=== PATIENT | male | born 1985 | race Caucasian/White ===

== ENCOUNTER 2016-07-08 23:05 | Inpatient (IN) | payer OTHER ==
[2016-07-09] MEDS ORDERED: ONDANSETRON 4 MG/2 ML VIAL IVP STA (00:09)
[2016-07-09] MEDS ORDERED: DICYCLOMINE 10 MG/ML 2 ML AMP IM STA (00:09)
[2016-07-09] MEDS ORDERED: SODIUM CHLORIDE 0.9% 1,000 ML IV STA ×2 (00:09→01:09)
--- NOTE | 2016-07-09 00:15 | ED ---
Abdominal Pain HPI - General Chief Complaint: Abdominal Pain Stated Complaint: abdominal pain/vomiting Time Seen by Provider: 07/08/16 23:53 Source: patient, RN notes reviewed Mode of arrival: wheelchair Limitations: no limitations - History of Present Illness Initial Comments: 30-year-old male presents to the emergency Department chief complaint of lower abdominal pain. Patient states this started yesterday with nausea vomiting. Patient states crampy pain all the way around the abdomen. Patient does admit to a history of cholecystectomy. Patient denies any fever chills. Patient seen changes in urination. Patient states he's never had anything like this before. Patient states he was concerned due to his continued pain so he thought that he should be seen.Patient denies any recent fever, chills, shortness of breath, chest pain, back pain, numbness or tingling, dysuria or hematuria, constipation or diarrhea, headaches or visual changes, or any other current symptoms. - Related Data Home Medications Medication Instructions Recorded Confirmed Citalopram Hydrobromide [CeleXA] 20 mg PO HS 02/05/16 07/08/16 traZODone HCL 50 mg PO HS PRN 05/08/16 07/08/16 Baclofen [Lioresal] 5 mg PO TID 07/08/16 07/08/16 traMADol HCL [Ultram] 50 mg PO Q6HR PRN 07/08/16 07/08/16 Previous Rx's Medication Instructions Recorded Famotidine [Pepcid] 20 mg PO BID #30 tablet 02/05/16 Carvedilol [Coreg] 6.25 mg PO BID #60 tab 03/14/16 Fenofibrate Nanocrystallized 145 mg PO HS #30 tablet 03/14/16 [Tricor] LORazepam [Ativan] 1 mg PO Q8H PRN #20 tab 05/10/16 Allergies Allergy/AdvReac Type Severity Reaction Status Date / Time Penicillins Allergy Rash/Hives Verified 05/18/16 20:45 Review of Systems ROS Statement: Those systems with pertinent positive or pertinent negative responses have been documented in the HPI. ROS Other: All systems not noted in ROS Statement are negative. Past Medical History Past Medical History: GERD/Reflux, Hypertension Additional Past Medical History / Comment(s): Possible previous pancreatitis. History of Any Multi-Drug Resistant Organisms: None Reported Past Surgical History: Cholecystectomy Additional Past Surgical History / Comment(s): Jaw surgery as child, wisdom teeth extraction. Past Anesthesia/Blood Transfusion Reactions: No Reported Reaction Past Psychological History: Anxiety, Depression Additional Psychological History / Comment(s): Pt lives alone. He is in the [employer]. He states he is on Celexa for his general anxiety disorder and that it is working well. He is independent. Smoking Status: Never smoker Past Alcohol Use History: Daily, Heavy Additional Past Alcohol Use History / Comment(s): Pt states he drinks 3 ounces of whiskey a day. Past Drug Use History: None Reported - Past Family History Father Family Medical History: No Reported History, Diabetes Mellitus Mother Family Medical History: No Reported History Additional Family Medical History / Comment(s): Mother is healthy General Exam - General Exam Comments Initial Comments: General: The patient is awake and alert, in no distress, and does not appear acutely ill. Eye: Pupils are equal, round and reactive to light, extra-ocular movements are intact; there is normal conjunctiva bilaterally. No signs of icterus. Ears, nose, mouth and throat: There are moist mucous membranes and no oral lesions. Neck: The neck is supple, there is no tenderness. Cardiovascular: There is a regular rate and rhythm. No murmur, rub or gallop is appreciated. Respiratory: Lungs are clear to auscultation, respirations are non-labored, breath sounds are equal. No wheezes, stridor, rales, or rhonchi. Gastrointestinal: Soft, non-distended, non-tender abdomen without masses or organomegaly noted. There is no rebound or guarding present. No CVA tenderness. Bowel sounds are unremarkable. Back: There is no tenderness to palpation in the midline. There is no obvious deformity. No rashes noted. Musculoskeletal: Normal ROM, no tenderness, There is no pedal edema. There is no calf tenderness or swelling. Sensation intact. Pulses equal bilaterally 2+. Neurological: CN II-XII intact, There are no obvious motor or sensory deficits. Coordination appears grossly intact. Speech is normal. Skin: Skin is warm and dry and no rashes or lesions are noted. Psychiatric: Cooperative, appropriate mood & affect, normal judgment. Limitations: no limitations Course Vital Signs 07/08/16 23:22 Temperature 98.5 F Pulse Rate 106 H Respiratory 20 Rate Blood Pressure 119/87 O2 Sat by Pulse 96 Oximetry Medical Decision Making - Medical Decision Making 30-year-old male presents for nausea vomiting and lower abdominal pain. At this time the patient's laboratory is reviewed that does show acute pancreatitis. Patient does have an elevated white blood cell count which is suspicious for his reactive due to his active vomiting. Patient at this time is feeling better with the medication. At this time we will admit the patient lab work otherwise does show consistency when compared to previous pancreatitis flareups. At this time we will that the patient continue fluids nothing by mouth we will also start Ativan protocol due to his history of alcohol abuse. Patient is in agreement with the plan. - Lab Data Result diagrams: 07/09/16 00:30 07/09/16 00:30 Lab Results 07/09/16 07/09/16 Range/Units 00:30 00:30 WBC 24.7 H (3.8-10.6) k/uL RBC 6.32 H (4.30-5.90) m/uL Hgb 19.5 H D (13.0-17.5) gm/dL Hct 55.7 H (39.0-53.0) % MCV 88.0 (80.0-100.0) fL MCH 30.8 (25.0-35.0) pg MCHC 35.0 (31.0-37.0) g/dL RDW 13.1 (11.5-15.5) % Plt Count 269 (150-450) k/uL Neutrophils % 92 % Lymphocytes % 3 % Monocytes % 5 % Eosinophils % 0 % Basophils % 0 % Neutrophils # 22.7 H (1.3-7.7) k/uL Lymphocytes # 0.7 L (1.0-4.8) k/uL Monocytes # 1.2 H (0-1.0) k/uL Eosinophils # 0.0 (0-0.7) k/uL Basophils # 0.1 (0-0.2) k/uL Sodium 138 (137-145) mmol/L Potassium 3.9 (3.5-5.1) mmol/L Chloride 97 L (98-107) mmol/L Carbon Dioxide 17 L (22-30) mmol/L Anion Gap 24 mmol/L BUN 17 (9-20) mg/dL Creatinine 1.00 (0.66-1.25) mg/dL Est GFR (MDRD) Af Amer >60 (>60 ml/min/1.73 sqM) Est GFR (MDRD) Non-Af >60 (>60 ml/min/1.73 sqM) Glucose 127 H (74-99) mg/dL Calcium 10.0 (8.4-10.2) mg/dL Total Bilirubin 1.5 H (0.2-1.3) mg/dL AST 109 H (17-59) U/L ALT 76 H (21-72) U/L Alkaline Phosphatase 93 (38-126) U/L Total Protein 8.6 H (6.3-8.2) g/dL Albumin 5.1 H (3.5-5.0) g/dL Amylase 662 H* (30-110) U/L - Radiology Data Radiology results: report reviewed, image reviewed Disposition Clinical Impression: Alcoholic hepatitis, Pancreatitis Disposition: ADMITTED IP TO THIS [facility] Condition: Stable Time of Disposition: 01:16 Decision Date: 07/09/16 Decision Time: 01:16
[2016-07-09 00:58] LABS: ALT 76 U/L (21-72); AST 109 U/L (17-59); Alkaline Phosphatase 93 U/L (38-126); Anion Gap 24 mmol/L; Blood Urea Nitrogen 17 mg/dL (9-20); Carbon Dioxide 17 mmol/L (22-30); Chloride 97 mmol/L (98-107); Glucose 127 mg/dL (74-99); Non-African American GFR(MDRD) >60 (>60 ml/min/1.73 sqM); Potassium 3.9 mmol/L (3.5-5.1); Sodium 138 mmol/L (137-145); Total Bilirubin 1.5 mg/dL (0.2-1.3); Total Protein 8.6 g/dL (6.3-8.2)
[2016-07-09 01:01] LABS: Basophils # (A) 0.1 k/uL (0-0.2); Basophils % (A) 0 %; CH 31.8; CHCM 36.2; Eosinophils % (A) 0 %; HCT 55.7 % (39.0-53.0); Luc # (Auto) 0.07; Luc % (Auto) 0; Lymphocytes # (A) 0.7 k/uL (1.0-4.8); Lymphocytes % (A) 3 %; MCH 30.8 pg (25.0-35.0); Mean Platelet Volume 7.5; Monocytes # (A) 1.2 k/uL (0-1.0); Monocytes % (A) 5 %; Neutrophils # (A) 22.7 k/uL (1.3-7.7); Neutrophils % (A) 92 %; RBC 6.32 m/uL (4.30-5.90); RDW 13.1 % (11.5-15.5); WBC 24.7 k/uL (3.8-10.6); WBC (Perox) 27.13
[2016-07-09 01:07] LABS: Amylase 662 U/L (30-110); HGB 19.5 gm/dL (13.0-17.5)
[2016-07-09] MEDS ORDERED: HYDROmorphone 1 MG/ML 1 ML SYRINGE IVP STA (01:09)
--- NOTE | 2016-07-09 01:15 | XR ---
EXAMINATION TYPE: XR abdomen 2V DATE OF EXAM: 07/09/2016 12:50 AM COMPARISON: NONE HISTORY: Abdominal pain TECHNIQUE: 2 views FINDINGS: There is no sign of intestinal obstruction or pneumoperitoneum. Fecal pattern is normal. Th ere is no evidence of a mass. There are no pathologic calcifications over the kidneys. There are clip s from cholecystectomy. Bony structures are intact. IMPRESSION: Nonacute abdomen.
[2016-07-09] MEDS ORDERED: NALOXONE 0.4 MG/ML 1 ML VIAL IV PRN (01:16)
[2016-07-09] MEDS ORDERED: THIAMINE 100 MG/ML 2 ML VIAL IM STA (01:16)
[2016-07-09] MEDS ORDERED: LORazepam 2 MG/ML SYRINGE IV PRN ×2 (01:16)
[2016-07-09] MEDS ORDERED: LORazepam 1 MG TAB PO PRN (01:18)
[2016-07-09] MEDS ORDERED: traZODone HCL 50 MG TAB PO PRN (01:18)
[2016-07-09] MEDS: traMADol 50 MG TAB PO PRN ×4 (02:47→19:59)
[2016-07-09] MEDS: SODIUM CHLORIDE 0.9% 1,000 ML IV SCH ×4 (02:47→20:01)
[2016-07-09] MEDS: HYDROmorphone 1 MG/ML 1 ML SYRINGE IV PRN ×7 (03:54→22:06)
[2016-07-09 04:06] VITALS: BMI 28.6
[2016-07-09] MEDS: CARVEDILOL 6.25 MG TAB PO SCH ×2 (05:11→16:18)
[2016-07-09] MEDS: BACLOFEN 10 MG TAB PO SCH ×3 (08:05→22:05)
[2016-07-09] MEDS: ONDANSETRON 4 MG/2 ML VIAL IVP PRN ×3 (08:06→23:37)
[2016-07-09] MEDS: FAMOTIDINE 20 MG TAB PO SCH ×2 (08:06→20:01)
[2016-07-09 11:54] LABS: ALT 452 U/L (21-72); Alkaline Phosphatase 174 U/L (38-126); Anion Gap 16 mmol/L; Blood Urea Nitrogen 12 mg/dL (9-20); Calcium 8.4 mg/dL (8.4-10.2); Carbon Dioxide 20 mmol/L (22-30); Chloride 102 mmol/L (98-107); Glucose 151 mg/dL (74-99); Non-African American GFR(MDRD) >60 (>60 ml/min/1.73 sqM); Potassium 4.3 mmol/L (3.5-5.1); Sodium 138 mmol/L (137-145); Total Bilirubin 8.2 mg/dL (0.2-1.3); Total Protein 6.9 g/dL (6.3-8.2)
[2016-07-09 12:05] LABS: AST 1355 U/L (17-59)
[2016-07-09] MEDS: THIAMINE 100 MG TAB PO SCH (16:18)
[2016-07-09] MEDS: FENOFIBRATE 160 MG TAB PO SCH (20:00)
[2016-07-09] MEDS: CITALOPRAM HYDROBROMIDE 20 MG TAB PO SCH (20:01)
[2016-07-09] MEDS: LORazepam 2 MG/ML SYRINGE IV PRN (23:45)
--- NOTE | 2016-07-09 23:51 | HP ---
DATE OF ADMISSION: CHIEF COMPLAINT: Abdominal pain. Mr. Moscoso is a 30-year-old male with a past medical history of GERD, hypertension, alcohol abuse, coming in with the chief complaint of abdominal pain. Patient states that he has had epigastric abdominal pain radiating to the back associated with nausea and vomiting. Patient admits to a history of alcohol abuse. He drinks 1 pint a day. He says that he works in the [employer] and he had this habit since working there. Patient denies having any fevers, chills or rigors. No difficulty in breathing. Patient denies having any constipation or blood in his stool. He denies having any loss of consciousness, syncopal episodes. REVIEW OF SYSTEMS: All 13 review of systems are done and negative except for the ones mentioned in the HPI. Past medical history is significant for: 1. GERD. 2. Alcohol abuse. 3. Hypertension. ALLERGIES: PENICILLIN. PATIENT'S HOME MEDICATIONS: 1. Citalopram 20 mg p.o. at bedtime. 2. Famotidine 20 mg p.o. b.i.d. 3. Coreg 6.25 mg p.o. b.i.d. 4. TriCor 145 mg p.o. at bedtime. 5. Trazodone 50 mg p.o. at bedtime. 6. Tramadol 50 mg p.o. b.i.d. 7. Baclofen 5 mg p.o. 3 times a day. 8. Thiamine 100 mg p.o. daily. 9. Folic acid 1 mg p.o. daily. 10. Ativan 1 mg p.o. b.i.d. p.r.n. for anxiety. SOCIAL HISTORY: Patient drinks 1 pint a day. Never a smoker. No intravenous drug abuse. SURGICAL HISTORY: Positive for cholecystectomy. FAMILY HISTORY: Positive for diabetes mellitus and hypertension in his father. PATIENT'S VITAL SIGNS: Temperature 96.9, heart rate between 90 and 120. Respiratory rate 18. Blood pressure 159/120. Saturating at 95% on room air. GENERAL EXAMINATION: Patient appears to be in no acute distress. HEAD: Atraumatic, normocephalic. EYES: Pupils round and reactive to light. No pallor. No icterus. NECK: No JVD. No thyromegaly. CARDIOVASCULAR SYSTEM: S1, S2 heard. RESPIRATORY: Bilateral breath sounds. No wheeze or crackles. ABDOMEN: Soft, non-tender. No organomegaly. Bowel sounds are positive. EXTREMITIES: No edema. No cyanosis. No clubbing. WOOD BUFFER: Alert, awake, oriented x3. No focal neurological deficit. MUSCULOSKELETAL: No joint swelling or deformity. SKIN: No rash. PATIENT'S LABS: White count of 24.7. Hemoglobin is 19.5. Platelets 269. Sodium 138, potassium 3.9, chloride 97, bicarb 17. BUN 17, creatinine 1. Amylase 662. Lipase 6090. Albumin 5.1. AST 109, ALT 76. Patient had an abdominal x-ray. No acute abdomen. ASSESSMENT AND PLAN: 1. Acute pancreatitis. 2. Acute alcoholic hepatitis. 3. Hypertension. 4. Gastroesophageal reflux disease. 5. Monitor for alcohol withdrawal symptoms. 6. Depression. PLAN: Continue to monitor the patient for DTs. Patient is being monitored on a CIWA scale. Resume his home medications. Supplement thiamine and folic acid. The leukocytosis can be secondary to alcoholic pancreatitis. Will repeat a.m. labs. Further recommendations depending on the progress of the patient. MTDD
[2016-07-10] MEDS: HYDROmorphone 1 MG/ML 1 ML SYRINGE IV PRN ×4 (02:04→20:47)
[2016-07-10] MEDS: LORazepam 2 MG/ML SYRINGE IV PRN (03:27)
[2016-07-10] MEDS: SODIUM CHLORIDE 0.9% 1,000 ML IV SCH ×3 (03:36→17:45)
[2016-07-10] MEDS ORDERED: METOPROLOL TARTRATE 50 MG TAB PO STA (04:34)
[2016-07-10] MEDS ORDERED: SODIUM CHLORIDE 0.9% 1,000 ML IV ONE (04:39)
[2016-07-10] MEDS: FAMOTIDINE 20 MG TAB PO SCH (08:13)
[2016-07-10] MEDS: CARVEDILOL 6.25 MG TAB PO SCH ×2 (08:13→17:44)
[2016-07-10] MEDS: BACLOFEN 10 MG TAB PO SCH ×3 (08:13→21:07)
[2016-07-10] MEDS: ONDANSETRON 4 MG/2 ML VIAL IVP PRN ×2 (08:16→16:21)
[2016-07-10 10:09] LABS: CH 31.1; CHCM 33.5; HCT 49.5 % (39.0-53.0); HDW 2.91; Immature Gran Flag Marked; MCH 30.5 pg (25.0-35.0); MCHC 32.7 g/dL (31.0-37.0); Mean Platelet Volume 9.1; RBC 5.31 m/uL (4.30-5.90); RDW 13.8 % (11.5-15.5); WBC 21.3 k/uL (3.8-10.6); WBC (Perox) 22.15
[2016-07-10 10:11] LABS: Calcium 7.7 mg/dL (8.4-10.2); Magnesium 1.8 mg/dL (1.6-2.3); Phosphorous 3.7 mg/dL (2.5-4.5); Potassium 4.8 mmol/L (3.5-5.1); Total Bilirubin 13.1 mg/dL (0.2-1.3); Total Protein 6.1 g/dL (6.3-8.2)
[2016-07-10 10:16] LABS: HGB 16.2 gm/dL (13.0-17.5)
[2016-07-10 10:17] LABS: MCV 93.4 fL (80.0-100.0)
[2016-07-10 11:12] LABS: Add Differential Manual Differential
[2016-07-10 11:15] LABS: Band Neutrophils % 15.5 %; Manual Review Performed; Metamyelocytes % 3.5 %; Myelocytes % 0.5 %; Nucleated Red Blood Cells 0 /100 WBC (0-0); Total Cells Counted 200; Toxic Granulation Present
[2016-07-10] MEDS: THIAMINE 100 MG TAB PO SCH ×2 (11:51→16:21)
[2016-07-10] MEDS: traMADol 50 MG TAB PO PRN (12:49)
[2016-07-10] MEDS: PANTOPRAZOLE 40 MG/10 ML VIAL IVP SCH (15:08)
--- NOTE | 2016-07-10 15:48 | P.PN ---
Subjective Date of service 07/10/2016 Progress note being dictated for Dr. Rao. Interval history: Is a 30-year-old gentleman admitted with acute pancreatitis, acute alcoholic hepatitis, acute renal failure and multiple other medical issues. Maintained on IV fluid hydration, renal function worsening. Patient states he drinks 1 pint/ day. Continues on CIWA protocol, no DTs. LFTs elevated , and T bili continues to worsen, up to 13.1. Amylase and lipase improving. Complains of bilateral upper quadrant abdominal pain that extends to bilateral flanks. Denies chest pain, palpitations or increasing shortness of breath. Nothing by mouth, denies nausea vomiting or diarrhea. Tachycardic evaluated by cardiology with recommendations noted. Afebrile, leukocytosis improving. Objective - Vital Signs Vital signs: Vital Signs Temp 96.5 F L 07/10/16 15:00 Pulse 103 H 07/10/16 15:00 Resp 20 07/10/16 15:00 BP 130/77 07/10/16 15:00 Pulse Ox 92 L 07/10/16 15:00 Intake & Output 07/09/16 07/10/16 07/10/16 18:59 06:59 18:59 Other: Voiding Method Toilet Toilet Urinal # Voids 2 - Exam PHYSICAL EXAM: VITAL SIGNS: As above GENERAL: [Sitting up in bed, no acute distress, jaundiced, well-nourished] HEENT: [Pupils equal , scleral icterus. Pupils round and equally reactive to light] NECK: [Supple, no JVD] RESPIRATORY EFFORT:[Normal] LUNGS: [Clear to auscultation, no wheezing, no crackles] CARDIOVASCULAR[regular S1 and S2, no murmurs rubs or gallops, tachycardic, no edema] GI: [Abdomen soft, distended, bilateral upper quadrant tenderness, positive bowel sounds.] PSYCH: [Alert and oriented -3, mood and affect normal.] NEURO: Gross neurological examination did not reveal any focal deficits SKIN: no rashes - Labs CBC & Chem 7: 07/10/16 09:13 07/10/16 09:13 Labs: Abnormal Lab Results - Last 24 Hours (Table) 07/10/16 07/10/16 07/10/16 Range/Units 00:37 09:13 09:13 WBC 21.3 H (3.8-10.6) k/uL Neutrophils # (Manual) 19.0 H (1.3-7.7) k/uL Sodium 135 L (137-145) mmol/L Carbon Dioxide 17 L (22-30) mmol/L BUN 30 H (9-20) mg/dL Creatinine 2.16 H (0.66-1.25) mg/dL Glucose 198 H (74-99) mg/dL Plasma Lactic Acid Aleksandar 2.9 H* (0.7-2.0) mmol/L Calcium 7.7 L (8.4-10.2) mg/dL Total Bilirubin 13.1 H (0.2-1.3) mg/dL AST 1059 H (17-59) U/L ALT 508 H (21-72) U/L Alkaline Phosphatase 226 H (38-126) U/L Total Protein 6.1 L (6.3-8.2) g/dL Amylase 496 H* (30-110) U/L Lipase 3619 H (23-300) U/L Assessment and Plan Plan: 1. Acute pancreatitis. 2. [Acute alcoholic hepatitis]. 3. [Acute renal failure, prerenal azotemia]. 4. [Hypertension]. 5. [Gastroesophageal reflux disease]. 6. [Alcohol abuse, reports drinking daily 1 pint. 7. [Anxiety disorder]. 8. Depression. Denies suicidal elevation. Plan: Continue on current medication regime ,monitoring and symptomatic treatment. Maintain IV fluid hydration as ordered. Continue on CIWA protocol. Alcohol cessation readdressed. Close monitoring of LFTs ,bili and renal function with CMP ordered for a.m. Daily INR ordered. Prognosis guarded given multiple complex medical issues. The impression and plan of care has been dictated as directed. : I performed a H&P examination of this patient and discussed the same with the dictator. I agree with the dictator's note. Any additional findings/opinions/ etc. will be noted.
[2016-07-10 16:37] LABS: INR 1.2 (<1.1); Prothrombin Time 12.2 sec (9.0-12.0)
[2016-07-10] MEDS: CITALOPRAM HYDROBROMIDE 20 MG TAB PO SCH (20:31)
[2016-07-10] MEDS: FENOFIBRATE 160 MG TAB PO SCH (20:32)
[2016-07-11] MEDS: HYDROmorphone 1 MG/ML 1 ML SYRINGE IV PRN ×5 (00:04→12:32)
[2016-07-11] MEDS: SODIUM CHLORIDE 0.9% 1,000 ML IV SCH ×7 (00:09→20:22)
[2016-07-11 08:50] LABS: INR 1.2 (<1.1); Prothrombin Time 12.3 sec (9.0-12.0)
[2016-07-11] MEDS: BACLOFEN 10 MG TAB PO SCH ×3 (08:52→20:57)
[2016-07-11] MEDS: PANTOPRAZOLE 40 MG/10 ML VIAL IVP SCH (08:53)
[2016-07-11] MEDS: CARVEDILOL 6.25 MG TAB PO SCH ×2 (08:53→17:12)
[2016-07-11 08:59] LABS: ALT 295 U/L (21-72); AST 255 U/L (17-59); Alkaline Phosphatase 216 U/L (38-126); Anion Gap 16 mmol/L; Blood Urea Nitrogen 30 mg/dL (9-20); Calcium 7.6 mg/dL (8.4-10.2); Carbon Dioxide 16 mmol/L (22-30); Chloride 101 mmol/L (98-107); Glucose 203 mg/dL (74-99); Non-African American GFR(MDRD) 55 (>60 ml/min/1.73 sqM); Potassium 4.5 mmol/L (3.5-5.1); Sodium 133 mmol/L (137-145); Total Protein 5.8 g/dL (6.3-8.2)
[2016-07-11 09:01] LABS: CH 30.8; CHCM 32.5; HCT 40.1 % (39.0-53.0); HDW 2.86; HGB 13.4 gm/dL (13.0-17.5); MCH 31.9 pg (25.0-35.0); MCHC 33.4 g/dL (31.0-37.0); MCV 95.4 fL (80.0-100.0); RDW 13.9 % (11.5-15.5); WBC 13.1 k/uL (3.8-10.6)
[2016-07-11] MEDS: ONDANSETRON 4 MG/2 ML VIAL IVP PRN ×2 (09:01→20:24)
[2016-07-11] MEDS: THIAMINE 100 MG TAB PO SCH ×2 (12:32→16:04)
[2016-07-11] MEDS: HYDROmorphone 1 MG/ML 1 ML SYRINGE IVP PRN ×2 (16:04→20:22)
--- NOTE | 2016-07-11 17:03 | P.PN ---
Subjective Date of service 07/11/2016 Progress note being dictated for Dr. Rao. Interval history: Is a 30-year-old gentleman admitted with acute pancreatitis, acute alcoholic hepatitis, acute renal failure and multiple other medical issues. Maintained on IV fluid hydration, renal function, LFTs, T bili improving. States belly pain resolved, now radiating into the lower back. Abdomen tympanic, no bowel movement in over 48 hours. Asking for diet advancement. Continues on CIWA protocol, no DTs. Denies chest pain, palpitations or increasing shortness of breath. Objective - Vital Signs Vital signs: Vital Signs Temp 98.1 F 07/11/16 15:00 Pulse 108 H 07/11/16 15:00 Resp 16 07/11/16 15:00 BP 143/82 07/11/16 15:00 Pulse Ox 93 L 07/11/16 15:00 Intake & Output 07/10/16 07/11/16 07/11/16 18:59 06:59 18:59 Intake Total 0 Output Total 1000 Balance -1000 Intake: Oral 0 Output: Urine 1000 Other: Voiding Method Toilet Toilet Urinal Urinal # Voids 1 2 1 # Bowel Movements 0 - Exam PHYSICAL EXAM: VITAL SIGNS: As above GENERAL: [Sitting up in bed, no acute, well-nourished] HEENT: [Pupils equal , scleral icterus. Pupils round and equally reactive to light] NECK: [Supple, no JVD] RESPIRATORY EFFORT:[Normal] LUNGS: [Clear to auscultation, no wheezing, no crackles] CARDIOVASCULAR[regular S1 and S2, no murmurs rubs or gallops, tachycardic, no edema] GI: [Abdomen soft, distended, tympanic, nontender, positive bowel sounds.] PSYCH: [Alert and oriented -3, mood and affect normal.] NEURO: Gross neurological examination did not reveal any focal deficits SKIN: no rashes - Labs CBC & Chem 7: 07/11/16 08:01 07/11/16 08:01 Labs: Abnormal Lab Results - Last 24 Hours (Table) 07/11/16 07/11/16 07/11/16 Range/Units 08:01 08:01 08:01 WBC 13.1 H (3.8-10.6) k/uL RBC 4.20 L (4.30-5.90) m/uL Plt Count 116 L (150-450) k/uL PT 12.3 H (9.0-12.0) sec Sodium 133 L (137-145) mmol/L Carbon Dioxide 16 L (22-30) mmol/L BUN 30 H (9-20) mg/dL Creatinine 1.49 H (0.66-1.25) mg/dL Glucose 203 H (74-99) mg/dL Calcium 7.6 L (8.4-10.2) mg/dL Total Bilirubin 9.0 H (0.2-1.3) mg/dL AST 255 H (17-59) U/L ALT 295 H (21-72) U/L Alkaline Phosphatase 216 H (38-126) U/L Total Protein 5.8 L (6.3-8.2) g/dL Albumin 3.1 L (3.5-5.0) g/dL Assessment and Plan Plan: 1. Acute pancreatitis. 2. [Acute alcoholic hepatitis]. 3. [Acute renal failure, prerenal azotemia]. 4. [Hypertension]. 5. [Gastroesophageal reflux disease]. 6. [Alcohol abuse, reports drinking daily 1 pint. 7. [Anxiety disorder]. 8. Depression. Denies suicidal elevation. 9. Constipation Plan: Continue on current medication regime ,monitoring and symptomatic treatment. Lactate of abdomen and lactulose ordered . Dilaudid frequency decreased. Diet advanced to clear liquids. Continue IV fluid hydration, CIWA protocol as ordered. Alcohol cessation readdressed. Close monitoring of LFTs , bili and renal function with labs ordered for a.m. Prognosis guarded given multiple complex medical issues. The impression and plan of care has been dictated as directed. : I performed a H&P examination of this patient and discussed the same with the dictator. I agree with the dictator's note. Any additional findings/opinions/ etc. will be noted.
--- NOTE | 2016-07-11 17:11 | XR ---
EXAMINATION TYPE: XR abdomen 1V DATE OF EXAM: 07/11/2016 5:03 PM COMPARISON: 07/09/2016 HISTORY: Abdominal pain and distention TECHNIQUE: 2 views FINDINGS: Bowel gas pattern is normal. There is no sign of intestinal obstruction or pneumoperitoneum . Fecal pattern is normal. There is no sign of a mass. There are clips from cholecystectomy. There ar e no pathologic calcifications over the kidneys. There is slight pleural thickening at the left lung base. IMPRESSION: There is no small left pleural effusion or pleural reaction compared to recent exam. Penelope cute abdomen.
[2016-07-11] MEDS: LACTULOSE 20 GM/30 ML CUP PO SCH ×2 (17:12→20:20)
[2016-07-11] MEDS: FENOFIBRATE 160 MG TAB PO SCH (20:19)
[2016-07-11] MEDS: CITALOPRAM HYDROBROMIDE 20 MG TAB PO SCH (20:20)
[2016-07-12] MEDS: HYDROmorphone 1 MG/ML 1 ML SYRINGE IVP PRN ×5 (00:27→21:47)
[2016-07-12] MEDS: ONDANSETRON 4 MG/2 ML VIAL IVP PRN ×2 (04:25→21:47)
[2016-07-12] MEDS: LACTULOSE 20 GM/30 ML CUP PO SCH ×2 (08:13→20:34)
[2016-07-12] MEDS: PANTOPRAZOLE 40 MG/10 ML VIAL IVP SCH (08:16)
[2016-07-12] MEDS: SODIUM CHLORIDE 0.9% 1,000 ML IV SCH ×2 (08:16→22:14)
[2016-07-12] MEDS: BACLOFEN 10 MG TAB PO SCH ×3 (08:16→22:15)
[2016-07-12] MEDS: CARVEDILOL 6.25 MG TAB PO SCH ×2 (08:16→17:28)
[2016-07-12 10:35] LABS: ALT 165 U/L (21-72); AST 94 U/L (17-59); Alkaline Phosphatase 152 U/L (38-126); Anion Gap 17 mmol/L; Blood Urea Nitrogen 14 mg/dL (9-20); Calcium 7.8 mg/dL (8.4-10.2); Carbon Dioxide 19 mmol/L (22-30); Chloride 99 mmol/L (98-107); Glucose 268 mg/dL (74-99); Non-African American GFR(MDRD) >60 (>60 ml/min/1.73 sqM); Potassium 3.9 mmol/L (3.5-5.1); Sodium 135 mmol/L (137-145); Total Protein 5.7 g/dL (6.3-8.2)
[2016-07-12 10:36] LABS: INR 1.1 (<1.1); Prothrombin Time 11.2 sec (9.0-12.0)
[2016-07-12] MEDS: INSULIN LISPRO (humaLOG) 300 UNIT/3 ML VIAL SQ SCH ×3 (12:37→22:14)
[2016-07-12] MEDS: THIAMINE 100 MG TAB PO SCH ×2 (12:41→17:28)
--- NOTE | 2016-07-12 14:11 | P.PN ---
Subjective Date of service 07/12/2016 Progress note being dictated for Dr. Rao. Interval history: This is a 30-year-old gentleman admitted with acute pancreatitis, acute alcoholic hepatitis, acute renal failure and multiple other medical issues. Yesterday IV fluids decreased, diet advanced to clear liquids; continued improvement in renal function, LFTs, T bili. Complains of bilateral flank pain radiating into lower back. Yesterday complaining of constipation, lactulose administered, positive results. Continues on CIWA protocol, no DTs. Denies chest pain, palpitations or increasing shortness of breath. Objective - Vital Signs Vital signs: Vital Signs Temp 97.4 F L 07/12/16 07:00 Pulse 97 07/12/16 08:00 Resp 24 07/12/16 08:00 BP 160/91 07/12/16 07:00 Pulse Ox 95 07/12/16 07:00 Intake & Output 07/11/16 07/12/16 07/12/16 18:59 06:59 18:59 Intake Total 500 200 Balance 500 200 Weight 88 kg Intake: Oral 500 200 Other: Voiding Method Toilet Toilet Toilet Urinal Urinal Urinal # Voids 1 1 # Bowel Movements 0 - Exam PHYSICAL EXAM: VITAL SIGNS: As above GENERAL: [Sitting up in bed, no acute, well-nourished] HEENT: [Pupils equal , scleral icterus. Pupils round and equally reactive to light] NECK: [Supple, no JVD] RESPIRATORY EFFORT:[Normal] LUNGS: [Clear to auscultation, no wheezing, no crackles] CARDIOVASCULAR[regular S1 and S2, no murmurs rubs or gallops, tachycardic, no edema] GI: [Abdomen soft, distended, nontender, positive bowel sounds.] PSYCH: [Alert and oriented -3, mood and affect normal.] NEURO: Gross neurological examination did not reveal any focal deficits SKIN: no rashes - Labs CBC & Chem 7: 07/11/16 08:01 07/12/16 09:17 Labs: Abnormal Lab Results - Last 24 Hours (Table) 07/12/16 Range/Units 09:17 Sodium 135 L (137-145) mmol/L Carbon Dioxide 19 L (22-30) mmol/L Glucose 268 H (74-99) mg/dL Calcium 7.8 L (8.4-10.2) mg/dL Total Bilirubin 3.0 H (0.2-1.3) mg/dL AST 94 H (17-59) U/L ALT 165 H (21-72) U/L Alkaline Phosphatase 152 H (38-126) U/L Total Protein 5.7 L (6.3-8.2) g/dL Albumin 3.1 L (3.5-5.0) g/dL Assessment and Plan Plan: 1. Acute pancreatitis. 2. [Acute alcoholic hepatitis]. 3. [Acute renal failure, prerenal azotemia]. 4. [Hypertension]. 5. [Gastroesophageal reflux disease]. 6. [Alcohol abuse, reports drinking daily 1 pint. 7. [Anxiety disorder]. 8. Depression. Denies suicidal elevation. 9. Constipation Plan: Continue on current medication regime ,monitoring and symptomatic treatment. Advance to soft diet. Continue IV fluid hydration, CIWA protocol as ordered. Alcohol cessation readdressed. Close monitoring of LFTs ,bili and renal function with labs ordered for a.m. discharge planning in progress for tomorrow. Prognosis guarded given multiple complex medical issues. The impression and plan of care has been dictated as directed. : I performed a H&P examination of this patient and discussed the same with the dictator. I agree with the dictator's note. Any additional findings/opinions/ etc. will be noted.
[2016-07-12 16:55] LABS: Glucose,Whole Blood 342 mg/dL (75-99)
[2016-07-12] MEDS: FENOFIBRATE 160 MG TAB PO SCH (20:33)
[2016-07-12] MEDS: CITALOPRAM HYDROBROMIDE 20 MG TAB PO SCH (20:34)
[2016-07-12 20:49] LABS: Glucose,Whole Blood 280 mg/dL (75-99)
[2016-07-12 21:12] LABS: Hemoglobin A1C 6.2 % (4.2-6.1)
[2016-07-13] MEDS: HYDROmorphone 1 MG/ML 1 ML SYRINGE IVP PRN ×2 (01:46→06:01)
[2016-07-13] MEDS: ONDANSETRON 4 MG/2 ML VIAL IVP PRN (06:01)
[2016-07-13] MEDS: SODIUM CHLORIDE 0.9% 1,000 ML IV SCH (06:19)
[2016-07-13] MEDS: CARVEDILOL 6.25 MG TAB PO SCH (07:35)
[2016-07-13] MEDS: LACTULOSE 20 GM/30 ML CUP PO SCH (07:35)
[2016-07-13] MEDS: BACLOFEN 10 MG TAB PO SCH (07:36)
[2016-07-13] MEDS: PANTOPRAZOLE 40 MG/10 ML VIAL IVP SCH (07:36)
[2016-07-13] MEDS: INSULIN LISPRO (humaLOG) 300 UNIT/3 ML VIAL SQ SCH ×2 (07:43→12:57)
[2016-07-13 07:52] LABS: Glucose,Whole Blood 249 mg/dL (75-99)
[2016-07-13 08:09] VITALS: BP 128/72; PULSE 94; RESP 20; TEMP 96
[2016-07-13 08:56] LABS: ALT 115 U/L (21-72); AST 63 U/L (17-59); Alkaline Phosphatase 130 U/L (38-126); Anion Gap 16 mmol/L; Blood Urea Nitrogen 11 mg/dL (9-20); Calcium 8.1 mg/dL (8.4-10.2); Carbon Dioxide 24 mmol/L (22-30); Chloride 95 mmol/L (98-107); Glucose 240 mg/dL (74-99); Non-African American GFR(MDRD) >60 (>60 ml/min/1.73 sqM); Potassium 4.4 mmol/L (3.5-5.1); Sodium 135 mmol/L (137-145); Total Bilirubin 2.9 mg/dL (0.2-1.3); Total Protein 5.7 g/dL (6.3-8.2)
[2016-07-13] MEDS ORDERED: HYDROcodone/APAP 5-325MG 1 EACH TAB PO PRN (09:47)
[2016-07-13 11:37] LABS: Glucose,Whole Blood 314 mg/dL (75-99)
[2016-07-13] MEDS ORDERED: INSULIN LISPRO (humaLOG) 300 UNIT/3 ML VIAL SQ ONE (12:33)
[2016-07-13] MEDS: THIAMINE 100 MG TAB PO SCH (12:57)
--- NOTE | 2016-07-13 19:24 | P.DS ---
Providers Date of admission: 07/09/16 01:16 Expected date of discharge: 07/13/16 Attending physician: Raquel Rao Primary care physician: Luke Rosado [facility] Course: Final Diagnoses: 1. Acute pancreatitis. 2. [Acute alcoholic hepatitis]. 3. [Acute renal failure, prerenal azotemia]. 4. [Hypertension]. 5. [Gastroesophageal reflux disease]. 6. [Alcohol abuse, reports drinking daily 1 pint. 7. [Anxiety disorder]. 8. Depression. Denies suicidal elevation. 9. Mildly elevated hemoglobin A1c 6.2 with elevated blood sugars secondary to acute pancreatitis, recheck hemoglobin A1c in 1 month and in 2 months once pancreas hopefully improves. Hospital course:This is a 30-year-old gentleman admitted with acute pancreatitis , acute alcoholic hepatitis, acute renal failure and multiple other medical issues in a patient who drinks1 pint/day. Abdominal x-rays nonacute. Maintained on CIWA protocol, no DTs. Maintained on IV fluid hydration and bowel rest with significant clinical improvement in lipase, LFTs, bili and renal function. Mild icterus resolved. Ambulating in hallway with abdominal pain significantly improved .diet advancement with no nausea or vomiting. Mildly elevated hemoglobin A1c of 6.2 with elevated blood sugars attributed to pancreatitis. Afebrile. Vital signs stable. Patient is being discharged home in a stable condition with guarded prognosis. Objective Patient Condition at Discharge: Stable Plan - Discharge Summary New Discharge Prescriptions: HYDROcodone/APAP 5-325MG [[place]amo 5-325] 1 each PO Q6HR PRN #20 tab PRN Reason: Pain Discharge Medication List Citalopram Hydrobromide [CeleXA] 20 mg PO HS 02/05/16 [History] Famotidine [Pepcid] 20 mg PO BID #30 tablet 02/05/16 [Rx] Carvedilol [Coreg] 6.25 mg PO BID #60 tab 03/14/16 [Rx] Fenofibrate Nanocrystallized [Tricor] 145 mg PO HS #30 tablet 03/14/16 [Rx] traZODone HCL 50 mg PO HS PRN 05/08/16 [History] Baclofen [Lioresal] 5 mg PO TID 07/08/16 [History] Folic Acid 1 mg PO DAILY 07/09/16 [History] Thiamine [Vitamin B-1] 100 mg PO DAILY 07/09/16 [History] HYDROcodone/APAP 5-325MG [[place] 5-325] 1 each PO Q6HR PRN #20 tab 07/13/16 [Rx] LORazepam [Ativan] 1 mg PO Q8H PRN #20 tab 07/13/16 [Rx] Follow up Appointment(s)/Referral(s): Jeff Abreu MD [STAFF PHYSICIAN] - 07/26/16 4:30 pm Luke Rosado DO [Primary Care Provider] - 07/19/16 3:00 pm Patient Instructions/Handouts: Pancreatitis (DC) Activity/Diet/Wound Care/Special Instructions: NO alcohol usage, references given. Hemoglobin A1c should be repeated in one month and again in 2 months, currently at 6.2 related to acute pancreatitis Diet: Soft low fat, bland Activity: Limited until follow up Discharge Disposition: HOME SELF-CARE
[2016-07-14] MEDS ORDERED: INSULIN GLARGINE 100 UNIT/ML 10 ML VIAL SQ SCH (08:00)
== END 2016-07-13 13:19 | disposition home or self-care (01) | DRG 439 ==
LOC: EC 23:05 → 4MS4W 07-09 01:16
PROVIDERS: ADMIT Internal Medicine; ATTEND Internal Medicine
PROC: HZ2ZZZZ Detoxification Services for Substance Abuse Treatment (ICD-10-PCS; principal; 2016-07-09)
DX: K85.90 Acute pancreatitis without necrosis or infection, unspecified (principal); N17.9 Acute kidney failure, unspecified; K70.10 Alcoholic hepatitis without ascites; I10 Essential (primary) hypertension; D72.829 Elevated white blood cell count, unspecified; F10.10 Alcohol abuse, uncomplicated; R73.9 Hyperglycemia, unspecified; K59.00 Constipation, unspecified; F41.1 Generalized anxiety disorder; F32.9 Major depressive disorder, single episode, unspecified; K21.9 Gastro-esophageal reflux disease without esophagitis; Z83.3 Family history of diabetes mellitus; Z82.49 Family history of ischemic heart disease and other diseases of the circulatory system; Z90.49 Acquired absence of other specified parts of digestive tract; Z79.899 Other long term (current) drug therapy; Z88.0 Allergy status to penicillin; Z87.19 Personal history of other diseases of the digestive system; Z79.891 Long term (current) use of opiate analgesic; Z71.41 Alcohol abuse counseling and surveillance of alcoholic
CPT/HCPCS: 36415; 74000; 74020; 80053; 82150; 83036; 83605; 83690; 83735; 84100; 85025; 85027; 85610; 93005; 96361; 96372; 96374; 96375; 99285

== ENCOUNTER 2016-07-19 06:02 | Inpatient (IN) | payer OTHER ==
[2016-07-19 07:15] LABS: Glucose,Whole Blood 383 mg/dL (75-99)
[2016-07-19] MEDS ORDERED: SODIUM CHLORIDE 0.9% 1,000 ML IV STA (07:28)
[2016-07-19] MEDS ORDERED: SODIUM CHLORIDE 0.9% 2,000 ML IV STA (07:28)
[2016-07-19] MEDS ORDERED: ONDANSETRON 4 MG/2 ML VIAL IVP STA (07:28)
[2016-07-19 08:11] LABS: ABG PH 7.28 (7.35-7.45)
[2016-07-19 08:12] LABS: ABG Base Excess -20.1 mmol/L; ABG HCO3 6 mmol/L (21-25); ABG PCO2 <15 mmHg (35-45); ABG PO2 115 mmHg (83-108); ABG TCO2 6 mmol/L (19-24)
[2016-07-19] MEDS ORDERED: INSULIN REGULAR BOLUS (FROM DRIP BAG) IV ONE (08:14)
--- NOTE | 2016-07-19 08:21 | ED ---
Recheck HPI - General Chief Complaint: Recheck/Abnormal Lab/Rx Stated Complaint: Hyperglycemia Time Seen by Provider: 07/19/16 07:05 Source: patient Mode of arrival: ambulatory Limitations: no limitations - History of Present Illness Initial Comments: His blood sugar has been very high, he is a newly diagnosed diabetic complaining about the back pain now feeling well tired and lethargic dry mouth. He denies any nausea no vomiting no abdominal pain he does have a history of pancreatitis recently and he denies any alcohol lately. He denies any headache no neck stiffness no chest pain no shortness of breath no abdominal pain no frequency urgency dysuria. - Related Data Home Medications Medication Instructions Recorded Confirmed Citalopram Hydrobromide [CeleXA] 20 mg PO HS 02/05/16 07/19/16 traZODone HCL 50 mg PO HS PRN 05/08/16 07/19/16 Baclofen [Lioresal] 5 mg PO TID 07/08/16 07/19/16 Folic Acid 1 mg PO DAILY 07/09/16 07/19/16 Thiamine [Vitamin B-1] 100 mg PO DAILY 07/09/16 07/19/16 HYDROcodone/APAP 5-325MG [[place] 1 tab PO Q6HR PRN 07/19/16 07/19/16 5-325] Previous Rx's Medication Instructions Recorded Famotidine [Pepcid] 20 mg PO BID #30 tablet 02/05/16 Carvedilol [Coreg] 6.25 mg PO BID #60 tab 03/14/16 Fenofibrate Nanocrystallized 145 mg PO HS #30 tablet 03/14/16 [Tricor] LORazepam [Ativan] 1 mg PO Q8H PRN #20 tab 07/13/16 Allergies Allergy/AdvReac Type Severity Reaction Status Date / Time Penicillins Allergy Rash/Hives Verified 07/19/16 07:38 Review of Systems ROS Statement: Those systems with pertinent positive or pertinent negative responses have been documented in the HPI. ROS Other: All systems not noted in ROS Statement are negative. Past Medical History Past Medical History: GERD/Reflux, Hypertension Additional Past Medical History / Comment(s): pancreatitis. History of Any Multi-Drug Resistant Organisms: None Reported Past Surgical History: Cholecystectomy Additional Past Surgical History / Comment(s): Jaw surgery as child, wisdom teeth extraction. Past Anesthesia/Blood Transfusion Reactions: No Reported Reaction Past Psychological History: Anxiety, Depression Additional Psychological History / Comment(s): Pt lives alone. He is in the [employer]. He states he is on Celexa for his general anxiety disorder and that it is working well. He is independent. Smoking Status: Never smoker Past Alcohol Use History: Daily, Heavy Additional Past Alcohol Use History / Comment(s): Pt states he drinks a pint or 2 of whiskey a day. Past Drug Use History: None Reported - Past Family History Father Family Medical History: No Reported History, Diabetes Mellitus Mother Family Medical History: No Reported History Additional Family Medical History / Comment(s): Mother is healthy General Exam - General Exam Comments Initial Comments: General: The patient is awake and alert, looks pale, tired, I could smell ketones on his breath from 6 feet Skin: Skin is warm and dry and no rashes or lesions are noted. Eye: Pupils are equal, round and reactive to light, extra-ocular movements are intact; there is normal conjunctiva bilaterally. Ears, nose, mouth and throat: Oral mucosa is dry Neck: The neck is supple, there is no tenderness signs of meningitis Cardiovascular: There is a regular rate and rhythm. No murmur, rub or gallop is appreciated. Respiratory: To auscultation bilateral, no wheezing no rhonchi no distress respiratory lopez noticed Gastrointestinal: Soft, non-distended, non-tender abdomen without masses or organomegaly noted. There is no rebound or guarding present. Bowel sounds are unremarkable. Back: There is no tenderness to palpation in the midline. There is no obvious deformity. Musculoskeletal: Normal ROM, no tenderness, There is no pedal edema. There is no calf tenderness or swelling. No cords were appreciated. Neurological: CN II-XII intact, Cranial nerves III through XII are intact. There are no obvious motor or sensory deficits. Coordination appears grossly intact. Speech is normal. Psychiatric: Cooperative, appropriate mood & affect, normal judgment. Limitations: no limitations Course Vital Signs 07/19/16 07/19/16 06:20 09:28 Temperature 97.7 F 98.0 F Pulse Rate 102 H 88 Respiratory 24 22 Rate Blood Pressure 135/75 137/64 O2 Sat by Pulse 98 [address] the [address] Mccormick and a Dr. Melchor, the ICU doc station operator, he recommended the DKA protocol in agreed with ICU admission for now Medical Decision Making - Lab Data Result diagrams: 07/19/16 07:50 Lab Results 07/19/16 07/19/16 07/19/16 Range/Units 06:28 07:50 07:50 Sample Site ABG pH (7.35-7.45) ABG pCO2 (35-45) mmHg ABG pO2 (83-108) mmHg ABG HCO3 (21-25) mmol/L ABG Total CO2 (19-24) mmol/L ABG O2 Saturation (94-97) % ABG Base Excess mmol/L FiO2 % Sodium 138 (137-145) mmol/L Potassium 5.4 H (3.5-5.1) mmol/L Chloride 99 (98-107) mmol/L Carbon Dioxide 10 L* (22-30) mmol/L Anion Gap 29 mmol/L BUN 12 (9-20) mg/dL Creatinine 0.89 (0.66-1.25) mg/dL Est GFR (MDRD) Af Amer >60 (>60 ml/min/1.73 sqM) Est GFR (MDRD) Non-Af >60 (>60 ml/min/1.73 sqM) Glucose 382 H (74-99) mg/dL POC Glucose (mg/dL) 383 H (75-99) mg/dL POC Glu Desk Assistant ID Oxana Stinson Osmolality (280-301) mosm/kg Plasma Lactic Acid Aleksandar 1.4 (0.7-2.0) mmol/L Calcium 9.0 (8.4-10.2) mg/dL Total Bilirubin 1.3 (0.2-1.3) mg/dL AST 16 L (17-59) U/L ALT 45 (21-72) U/L Alkaline Phosphatase 147 H (38-126) U/L Troponin I (0.000-0.034) ng/mL Total Protein 6.7 (6.3-8.2) g/dL Albumin 3.6 (3.5-5.0) g/dL Amylase <30 L (30-110) U/L Lipase 162 (23-300) U/L 07/19/16 07/19/16 07/19/16 Range/Units 07:50 07:50 07:55 Sample Site left radial ABG pH 7.28 L (7.35-7.45) ABG pCO2 <15 L* (35-45) mmHg ABG pO2 115 H (83-108) mmHg ABG HCO3 6 L* (21-25) mmol/L ABG Total CO2 6 L (19-24) mmol/L ABG O2 Saturation 98.0 H (94-97) % ABG Base Excess -20.1 mmol/L FiO2 21 % Sodium (137-145) mmol/L Potassium (3.5-5.1) mmol/L Chloride (98-107) mmol/L Carbon Dioxide (22-30) mmol/L Anion Gap mmol/L BUN (9-20) mg/dL Creatinine (0.66-1.25) mg/dL Est GFR (MDRD) Af Amer (>60 ml/min/1.73 sqM) Est GFR (MDRD) Non-Af (>60 ml/min/1.73 sqM) Glucose (74-99) mg/dL POC Glucose (mg/dL) (75-99) mg/dL POC Glu Desk Assistant ID Osmolality 314 H (280-301) mosm/kg Plasma Lactic Acid Aleksandar (0.7-2.0) mmol/L Calcium (8.4-10.2) mg/dL Total Bilirubin (0.2-1.3) mg/dL AST (17-59) U/L ALT (21-72) U/L Alkaline Phosphatase (38-126) U/L Troponin I <0.012 (0.000-0.034) ng/mL Total Protein (6.3-8.2) g/dL Albumin (3.5-5.0) g/dL Amylase (30-110) U/L Lipase (23-300) U/L Critical Care Time Total Critical Care Time: 35 Critical Care Time: Condition dizziness with ketoacidosis, fluid resuscitation was done, noticed that his bicarbonate was extremely low, discussed with the Dr. Mccormick in her Dr. Melchor or and started the insulin infusion her DKA protocol Disposition Clinical Impression: Metabolic acidosis, Diabetic ketoacidosis Disposition: ADMITTED IP TO THIS HOSP Condition: Fair
--- NOTE | 2016-07-19 08:47 | XR ---
EXAMINATION TYPE: XR chest 2V DATE OF EXAM: 07/19/2016 8:41 AM COMPARISON: NONE HISTORY: Hyperglycemia with chest and abdominal pain TECHNIQUE: Frontal and lateral views of the chest are obtained. FINDINGS: There is slightly elevated left hemidiaphragm. There is no focal air space opacity, pleura l effusion, or pneumothorax seen. The cardiac silhouette size is within normal limits. The osseous structures are intact. IMPRESSION: No acute cardiopulmonary process.
[2016-07-19] MEDS: D5-0.45% NACL WITH KCL 20MEQ/L 1,000 ML IV SCH ×2 (08:49→11:25)
--- NOTE | 2016-07-19 08:49 | XR ---
EXAMINATION TYPE: XR KUB DATE OF EXAM: 07/19/2016 8:41 AM CLINICAL HISTORY: Hyperglycemia with abdominal pain. History of pancreatitis. TECHNIQUE: 2 upright KUB images of the abdomen are obtained COMPARISON: Abdominal x-ray from July 11, 2016. FINDINGS: There is some paucity of bowel gas. Visualized gas is seen in nondistended small and large bowel loops scattered throughout the abdomen and pelvis. Amount of fecal material is slightly promine nt in the right colon similar to prior. Cholecystectomy clips are present. No pneumoperitoneum is see n. Elevated left hemidiaphragm is redemonstrated. No suspicious calcifications are noted. Visualized osseous structures are intact. IMPRESSION: Overall nonspecific strongly favor nonobstructive bowel gas pattern.
[2016-07-19 08:50] LABS: ALT 45 U/L (21-72); AST 16 U/L (17-59); Alkaline Phosphatase 147 U/L (38-126); Amylase <30 U/L (30-110); Anion Gap 29 mmol/L; Blood Urea Nitrogen 12 mg/dL (9-20); Chloride 99 mmol/L (98-107); Glucose 382 mg/dL (74-99); Non-African American GFR(MDRD) >60 (>60 ml/min/1.73 sqM); Potassium 5.4 mmol/L (3.5-5.1); Sodium 138 mmol/L (137-145); Total Bilirubin 1.3 mg/dL (0.2-1.3); Total Protein 6.7 g/dL (6.3-8.2)
[2016-07-19 08:56] LABS: Carbon Dioxide 10 mmol/L (22-30)
[2016-07-19 09:04] LABS: Appearance,Urine Clear (Clear); Bilirubin,Urine Negative (Negative); Glucose,Urine (UA) 4+ (Negative); Leukocyte Esterase,Urine Negative (Negative); Nitrite,Urine Negative (Negative); Protein,Urine Trace (Negative); Specific Gravity,Urine 1.021 (1.001-1.035); UA Billing (MACRO vs. MICRO) CHEM; Urobilinogen,Urine <2.0 mg/dL (<2.0)
[2016-07-19] MEDS: INSULIN REGULAR 100 UNIT in SODIUM CHLORIDE 0.9% 100 ML IV SCH ×2 (09:21→23:36)
[2016-07-19 09:28] LABS: Glucose,Whole Blood 364 mg/dL (75-99)
[2016-07-19 09:45] LABS: Basophils # (A) 0.1 k/uL (0-0.2); Basophils % (A) 1 %; CH 29.4; CHCM 28.5; Eosinophils # (A) 0.1 k/uL (0-0.7); Eosinophils % (A) 0 %; HCT 39.9 % (39.0-53.0); HDW 2.87; HGB 11.7 gm/dL (13.0-17.5); Hypochromasia Marked; Luc # (Auto) 0.32; Luc % (Auto) 1; Lymphocytes # (A) 1.2 k/uL (1.0-4.8); Lymphocytes % (A) 6 %; MCH 30.3 pg (25.0-35.0); MCHC 29.2 g/dL (31.0-37.0); MCV 103.9 fL (80.0-100.0); Macrocytosis Slight; Mean Platelet Volume 9.6; Monocytes % (A) 5 %; Neutrophils # (A) 19.4 k/uL (1.3-7.7); Neutrophils % (A) 88 %; RBC 3.84 m/uL (4.30-5.90); RDW 13.6 % (11.5-15.5); WBC 22.2 k/uL (3.8-10.6); WBC (Perox) 23.39
[2016-07-19 10:04] LABS: Ketones,Urine 4+ (Negative)
[2016-07-19 10:20] LABS: Manual Review Performed
[2016-07-19] MEDS: SODIUM CHLORIDE 0.9% 1,000 ML IV SCH ×3 (10:20→18:38)
[2016-07-19 10:27] LABS: Glucose,Whole Blood 313 mg/dL (75-99)
[2016-07-19] MEDS ORDERED: HYDROcodone/APAP 5-325MG 1 EACH TAB PO STA (11:26)
[2016-07-19 11:32] LABS: Glucose,Whole Blood 250 mg/dL (75-99)
[2016-07-19 12:26] LABS: Glucose,Whole Blood 202 mg/dL (75-99)
[2016-07-19 13:30] LABS: Anion Gap 20 mmol/L; Blood Urea Nitrogen 10 mg/dL (9-20); Carbon Dioxide 12 mmol/L (22-30); Chloride 111 mmol/L (98-107); Glucose 201 mg/dL (74-99); Non-African American GFR(MDRD) >60 (>60 ml/min/1.73 sqM); Phosphorous 1.7 mg/dL (2.5-4.5); Potassium 4.5 mmol/L (3.5-5.1); Sodium 143 mmol/L (137-145)
[2016-07-19 13:50] LABS: Glucose,Whole Blood 178 mg/dL (75-99)
[2016-07-19 14:26] LABS: Glucose,Whole Blood 153 mg/dL (75-99)
[2016-07-19 14:52] LABS: Glucose,Whole Blood 160 mg/dL (75-99)
[2016-07-19 15:27] LABS: Glucose,Whole Blood 166 mg/dL (75-99)
--- NOTE | 2016-07-19 16:07 | P.CNPUL ---
History of Present Illness Consult date: 07/19/16 Requesting physician: Elizabet Kathleen Reason for consult: other (Critical care management) Chief complaint: Fatigue, weakness, back pain History of present illness: This is a very pleasant 31-year-old male patient who follows with Dr. Rosado as his primary care physician. He has a history of alcoholism, pancreatitis with elevated blood glucose levels, hypertension, anxiety/depression. He was recently discharged here on 07/13/2016 for an episode of acute pancreatitis. He did have mildly elevated hemoglobin A1c at 6.2 at that time. He was following up with Dr. cortney ferreira in the outpatient setting and was seen there yesterday. The patient did have complaints of fatigue weakness and dry mouth. His blood glucose levels were quite elevated and he was referred to the emergency room for the same. His initial glucose level was 382 months 4+ ketones in the urine, bicarb of 10, anion gap of 29. Arterial blood gases revealed a PaO2 of 115 pCO2 less than 15 pH 7.28, bicarb 6 on 21% FiO2. WBC 22.2, MCV 103.9. He has received 3 L of IV fluid resuscitation. Current 0.9 normal saline at 200 miles an hour. He is on insulin drip at 0.1 units per kilogram per hour. The patient states he has not been drinking since his discharged last week. We're consulted for critical care management. The patient is seen today in consultation in the emergency room. He is awake and alert in no acute distress. Most recent blood glucose 166. He is maintaining good O2 saturations in the upper 90s to 100% on room air. His chest x-ray reveals no acute pulmonary process. He's been afebrile. He is not tachycardic nor tachypneic. His only complaint is that of back pain. No abdominal discomfort. No nausea, vomiting or diarrhea. He is now on a D5 and half- normal saline with 20 mEq of potassium chloride at 150 MLS per hour per protocol. We'll obtain a repeat arterial blood gas. The patient may be able to go to the regular medical floor versus the intensive care unit once his gap is closed and has CO2 is recovered. Review of Systems 14 point review of system was conducted. All negative other than as mentioned in HPI. Past Medical History Past Medical History: Diabetes Mellitus, GERD/Reflux, Hyperlipidemia, Hypertension Additional Past Medical History / Comment(s): Pt recently admitted to [facility] on with acute pancreatitis, acute alcohol hepatitis, acute renal failure. Other hx: pancreatitis, pt states recently worked up for probable diabetes. History of Any Multi-Drug Resistant Organisms: None Reported Past Surgical History: Cholecystectomy Additional Past Surgical History / Comment(s): Jaw surgery as child, wisdom teeth extraction. Past Anesthesia/Blood Transfusion Reactions: No Reported Reaction Past Psychological History: Anxiety, Depression Additional Psychological History / Comment(s): Pt lives alone. He is in the [employer]. He states he is on Celexa for his general anxiety disorder and that it is working well. He is independent. Smoking Status: Never smoker Past Alcohol Use History: Daily, Heavy Additional Past Alcohol Use History / Comment(s): Pt states he was drinking a pint or 2 of whiskey a day. He states he last drank 2 weeks ago. Past Drug Use History: None Reported - Past Family History Father Family Medical History: No Reported History, Diabetes Mellitus Mother Family Medical History: No Reported History Additional Family Medical History / Comment(s): Mother is healthy Medications and Allergies Home Medications Medication Instructions Recorded Confirmed Type Citalopram Hydrobromide [CeleXA] 20 mg PO HS 02/05/16 07/19/16 History traZODone HCL 50 mg PO HS PRN 05/08/16 07/19/16 History Baclofen [Lioresal] 5 mg PO TID 07/08/16 07/19/16 History Folic Acid 1 mg PO DAILY 07/09/16 07/19/16 History Thiamine [Vitamin B-1] 100 mg PO DAILY 07/09/16 07/19/16 History HYDROcodone/APAP 5-325MG [[place] 1 tab PO Q6HR PRN 07/19/16 07/19/16 History 5-325] Allergies Allergy/AdvReac Type Severity Reaction Status Date / Time Penicillins Allergy Rash/Hives Verified 07/19/16 07:38 Physical Exam Vitals: Vital Signs Temp Pulse Resp BP Pulse Ox 07/19/16 15:45 91 18 127/59 99 07/19/16 14:25 93 18 140/74 99 07/19/16 12:25 97.8 F 84 16 113/58 98 07/19/16 11:25 97.9 F 88 20 113/62 100 07/19/16 10:26 98.0 F 85 20 126/59 100 07/19/16 09:28 98.0 F 88 22 137/64 100 Intake and Output 07/19/16 07/19/16 07/19/16 06:59 14:59 22:59 Intake Total 47.961 Balance 47.961 Intake: Intake, IV Titration 47.961 Amount Insulin Regular 100 unit 47.961 In Sodium Chloride 0.9% 100 ml @ 0.1 UNITS/KG/HR 8.52 mls/hr IV .[id number] [facility] Rx#:[id number] Other: # Voids 1 GENERAL EXAM: Alert, active, comfortable in no apparent distress. HEAD: Normocephalic. EYES: Normal reaction of pupils, equal size. NOSE: Clear with pink turbinates. THROAT: No erythema or exudates. NECK: No masses, no JVD. CHEST: No chest wall deformity. LUNGS: Equal air entry with no crackles, wheeze, rhonchi or dullness. CVS: S1 and S2 normal with no audible mumurs, regular rhythm. ABDOMEN: No hepatosplenomegaly, normal bowel sounds, no guarding or rigidity. SPINE: No scoliosis or deformity SKIN: No rashes CENTRAL NERVOUS SYSTEM: No focal deficits, tone is normal in all 4 extremities. Sturman is: There is no significant peripheral edema. No clubbing, no cyanosis. Peripheral pulses are intact. Results - Laboratory Findings CBC and BMP: 07/19/16 09:09 07/19/16 12:45 ABG ABG pH 7.28 (7.35-7.45) L 07/19/16 07:55 ABG pCO2 <15 mmHg (35-45) L* 07/19/16 07:55 ABG pO2 115 mmHg (83-108) H 07/19/16 07:55 ABG O2 Saturation 98.0 % (94-97) H 07/19/16 07:55 Abnormal lab findings: Abnormal Labs 07/19/16 07/19/16 07/19/16 08:45 09:09 09:26 WBC 22.2 H RBC 3.84 L Hgb 11.7 L MCV 103.9 H MCHC 29.2 L Neutrophils # 19.4 H Chloride Carbon Dioxide Creatinine Glucose POC Glucose (mg/dL) 364 H Phosphorus Urine Protein Trace H Urine Glucose (UA) 4+ H Urine Ketones 4+ H 07/19/16 07/19/16 07/19/16 10:24 11:21 12:24 WBC RBC Hgb MCV MCHC Neutrophils # Chloride Carbon Dioxide Creatinine Glucose POC Glucose (mg/dL) 313 H 250 H 202 H Phosphorus Urine Protein Urine Glucose (UA) Urine Ketones 07/19/16 07/19/16 07/19/16 12:45 13:45 14:23 WBC RBC Hgb MCV MCHC Neutrophils # Chloride 111 H Carbon Dioxide 12 L Creatinine 0.58 L Glucose 201 H POC Glucose (mg/dL) 178 H 153 H Phosphorus 1.7 L Urine Protein Urine Glucose (UA) Urine Ketones 07/19/16 07/19/16 14:50 15:25 WBC RBC Hgb MCV MCHC Neutrophils # Chloride Carbon Dioxide Creatinine Glucose POC Glucose (mg/dL) 160 H 166 H Phosphorus Urine Protein Urine Glucose (UA) Urine Ketones - Diagnostic Findings Chest x-ray: image reviewed (No acute pulmonary process.) Assessment and Plan Plan: Impression: #1 Acute diabetic ketoacidosis with new onset diabetes mellitus secondary to recent acute pancreatitis. #2 Metabolic acidosis secondary to above. #3 Alcoholism area #4 Hypertension. #5 Gastroesophageal reflux disease. #6 Anxiety/depression. Plan: The patient was seen and evaluated by Dr. Melchor. Recommended repeat arterial blood gases. If his bicarbonate is improved and the acidosis corrected we will plan to transfer the patient to the regular medical floor versus intensive care unit. Continue with the DKA protocol. His amylase and lipase levels are improved from his previous recent discharge for acute pancreatitis. He is again educated regarding the importance of complete alcohol cessation. He is educated regarding the importance of compliance in regards to follow up regarding his new-onset diabetes mellitus. natural resources extension educator has been consulted. We will continue to follow make further recommendations based on his clinical status.
[2016-07-19 16:47] LABS: Anion Gap 16 mmol/L; Blood Urea Nitrogen 8 mg/dL (9-20); Carbon Dioxide 16 mmol/L (22-30); Chloride 107 mmol/L (98-107); Glucose 188 mg/dL (74-99); Non-African American GFR(MDRD) >60 (>60 ml/min/1.73 sqM); Phosphorous 1.4 mg/dL (2.5-4.5); Potassium 3.8 mmol/L (3.5-5.1); Sodium 139 mmol/L (137-145)
[2016-07-19 17:00] LABS: Glucose,Whole Blood 189 mg/dL (75-99)
[2016-07-19] MEDS ORDERED: LORazepam 1 MG TAB PO PRN (18:05)
[2016-07-19] MEDS ORDERED: traZODone HCL 50 MG TAB PO PRN (18:05)
[2016-07-19 18:18] LABS: Glucose,Whole Blood 200 mg/dL (75-99)
[2016-07-19] MEDS: SODIUM PHOSPHATE 10 MMOL in SODIUM CHLORIDE 0.9% 250 ML IVPB SCH ×3 (18:37→23:37)
[2016-07-19] MEDS: CARVEDILOL 6.25 MG TAB PO SCH (18:49)
[2016-07-19 19:12] LABS: Glucose,Whole Blood 225 mg/dL (75-99)
[2016-07-19] MEDS: FAMOTIDINE 20 MG TAB PO SCH (19:56)
[2016-07-19] MEDS: HYDROcodone/APAP 5-325MG 1 EACH TAB PO PRN (19:56)
[2016-07-19] MEDS: CITALOPRAM HYDROBROMIDE 20 MG TAB PO SCH (19:56)
[2016-07-19] MEDS: FENOFIBRATE 160 MG TAB PO SCH (19:56)
[2016-07-19 20:07] LABS: Glucose,Whole Blood 228 mg/dL (75-99)
[2016-07-19 21:04] LABS: Glucose,Whole Blood 209 mg/dL (75-99)
[2016-07-19] MEDS ORDERED: NALOXONE 0.4 MG/ML 1 ML VIAL IV PRN (21:26)
[2016-07-19 21:34] LABS: ABG Base Excess -8.1 mmol/L; ABG HCO3 15 mmol/L (21-25); ABG PCO2 23 mmHg (35-45); ABG PH 7.44 (7.35-7.45); ABG PO2 99 mmHg (83-108); ABG TCO2 16 mmol/L (19-24)
[2016-07-19] MEDS: BACLOFEN 10 MG TAB PO SCH (21:37)
[2016-07-19 22:03] LABS: Glucose,Whole Blood 232 mg/dL (75-99)
[2016-07-19 23:03] LABS: Glucose,Whole Blood 216 mg/dL (75-99)
[2016-07-19 23:49] LABS: Glucose,Whole Blood 208 mg/dL (75-99)
[2016-07-20] MEDS: HYDROcodone/APAP 5-325MG 1 EACH TAB PO PRN ×3 (00:56→14:31)
[2016-07-20 00:57] LABS: Glucose,Whole Blood 220 mg/dL (75-99)
[2016-07-20 02:13] LABS: Glucose,Whole Blood 190 mg/dL (75-99)
[2016-07-20] MEDS: SODIUM CHLORIDE 0.9% 1,000 ML IV SCH ×4 (02:17→17:25)
[2016-07-20] MEDS: D5-0.45% NACL WITH KCL 20MEQ/L 1,000 ML IV SCH ×3 (03:58→17:25)
[2016-07-20 04:02] LABS: Glucose,Whole Blood 195 mg/dL (75-99)
[2016-07-20 04:43] LABS: Basophils % (A) 0 %; CH 30.6; CHCM 32.9; Eosinophils # (A) 0.2 k/uL (0-0.7); Eosinophils % (A) 2 %; HCT 34.7 % (39.0-53.0); HDW 2.93; HGB 11.4 gm/dL (13.0-17.5); Luc # (Auto) 0.16; Luc % (Auto) 1; Lymphocytes # (A) 0.9 k/uL (1.0-4.8); Lymphocytes % (A) 8 %; MCH 30.7 pg (25.0-35.0); MCHC 32.9 g/dL (31.0-37.0); Mean Platelet Volume 8.5; Monocytes # (A) 0.6 k/uL (0-1.0); Monocytes % (A) 5 %; Neutrophils % (A) 84 %; RBC 3.72 m/uL (4.30-5.90); RDW 13.6 % (11.5-15.5); WBC 11.9 k/uL (3.8-10.6); WBC (Perox) 14.53
[2016-07-20 04:56] LABS: Anion Gap 10 mmol/L; Blood Urea Nitrogen 3 mg/dL (9-20); Calcium 7.6 mg/dL (8.4-10.2); Carbon Dioxide 23 mmol/L (22-30); Chloride 102 mmol/L (98-107); Glucose 203 mg/dL (74-99); MCV 93.3 fL (80.0-100.0); Magnesium 1.5 mg/dL (1.6-2.3); Non-African American GFR(MDRD) >60 (>60 ml/min/1.73 sqM); Sodium 135 mmol/L (137-145)
[2016-07-20 05:00] LABS: Glucose,Whole Blood 180 mg/dL (75-99)
[2016-07-20 05:22] LABS: Large Platelets Present; Manual Review Performed; Toxic Granulation Present
[2016-07-20] MEDS ORDERED: Potassium Replacement Protocol 1 EACH MISC MISCELLANE PRN ×2 (05:36→23:22)
[2016-07-20 06:07] LABS: Glucose,Whole Blood 194 mg/dL (75-99)
[2016-07-20] MEDS: POTASSIUM CHLORIDE ER 20 MEQ TAB.ER PO SCH ×2 (06:49→08:54)
[2016-07-20 06:55] LABS: Glucose,Whole Blood 239 mg/dL (75-99)
[2016-07-20 08:51] LABS: Glucose,Whole Blood 307 mg/dL (75-99)
[2016-07-20] MEDS: MAGNESIUM SULFATE-D5W PMX 1 GM in DEXTROSE/WATER 1 100ML.BAG IVPB SCH ×2 (08:54→10:56)
[2016-07-20] MEDS: FAMOTIDINE 20 MG TAB PO SCH ×2 (08:54→21:02)
[2016-07-20] MEDS: CARVEDILOL 6.25 MG TAB PO SCH ×2 (08:54→17:52)
[2016-07-20] MEDS: BACLOFEN 10 MG TAB PO SCH ×3 (08:55→21:02)
[2016-07-20] MEDS: FOLIC ACID 1 MG TAB PO SCH (08:55)
[2016-07-20 10:45] LABS: Glucose,Whole Blood 256 mg/dL (75-99)
[2016-07-20 12:07] LABS: Glucose,Whole Blood 177 mg/dL (75-99)
[2016-07-20 12:08] LABS: Hemoglobin A1C 7.3 % (4.2-6.1)
[2016-07-20] MEDS: THIAMINE 100 MG TAB PO SCH (12:08)
[2016-07-20 12:12] LABS: Anion Gap 8 mmol/L; Blood Urea Nitrogen 2 mg/dL (9-20); Carbon Dioxide 26 mmol/L (22-30); Chloride 100 mmol/L (98-107); Glucose 221 mg/dL (74-99); Non-African American GFR(MDRD) >60 (>60 ml/min/1.73 sqM); Phosphorous 1.4 mg/dL (2.5-4.5); Potassium 3.4 mmol/L (3.5-5.1); Sodium 134 mmol/L (137-145)
[2016-07-20 12:28] VITALS: BMI 27.4
[2016-07-20] MEDS: POTASSIUM CHLORIDE 10 MEQ, LIDOCAINE 2% INJ 10 MG in SODIUM CHLORIDE 0.9% 100 ML IV SCH ×2 (14:32→16:00)
[2016-07-20 14:38] LABS: Glucose,Whole Blood 123 mg/dL (75-99)
[2016-07-20] MEDS: SODIUM PHOSPHATE 10 MMOL in SODIUM CHLORIDE 0.9% 250 ML IVPB SCH ×3 (16:00→20:33)
[2016-07-20] MEDS: INSULIN REGULAR 100 UNIT in SODIUM CHLORIDE 0.9% 100 ML IV SCH (16:02)
--- NOTE | 2016-07-20 17:33 | P.PN ---
Subjective Principal diagnosis: Acute diabetic ketoacidosis This is a very pleasant 31-year-old male patient who follows with Dr. Rosado as his primary care physician. He has a history of alcoholism, pancreatitis with elevated blood glucose levels, hypertension, anxiety/depression. He was recently discharged here on 07/13/2016 for an episode of acute pancreatitis. He did have mildly elevated hemoglobin A1c at 6.2 at that time. He was following up with Dr. cortney ferreira in the outpatient setting and was seen there yesterday. The patient did have complaints of fatigue weakness and dry mouth. His blood glucose levels were quite elevated and he was referred to the emergency room for the same. His initial glucose level was 382 months 4+ ketones in the urine, bicarb of 10, anion gap of 29. Arterial blood gases revealed a PaO2 of 115 pCO2 less than 15 pH 7.28, bicarb 6 on 21% FiO2. WBC 22.2, MCV 103.9. He has received 3 L of IV fluid resuscitation. Current 0.9 normal saline at 200 miles an hour. He is on insulin drip at 0.1 units per kilogram per hour. The patient states he has not been drinking since his discharged last week. We're consulted for critical care management. The patient is seen today in consultation in the emergency room. He is awake and alert in no acute distress. Most recent blood glucose 166. He is maintaining good O2 saturations in the upper 90s to 100% on room air. His chest x-ray reveals no acute pulmonary process. He's been afebrile. He is not tachycardic nor tachypneic. His only complaint is that of back pain. No abdominal discomfort. No nausea, vomiting or diarrhea. He is now on a D5 and half- normal saline with 20 mEq of potassium chloride at 150 MLS per hour per protocol. We'll obtain a repeat arterial blood gas. The patient may be able to go to the regular medical floor versus the intensive care unit once his gap is closed and has CO2 is recovered. Patient was reevaluated today on 07/20/2016, seems to be doing better, his anion gap has resolved, his labs look unremarkable, and I plan to transfer him out of the ICU to a regular medical floor. Potassium is a bit low being corrected. CBC is normal. Renal profile is normal. Patient is mostly complaining of some vague aches and pains mostly in the left flank area. Similar to the symptoms he had when he had his last episode of pancreatitis. However on this admission his pancreatic enzymes were normal. Objective - Vital Signs Vital signs: Vital Signs Temp 98.7 F 07/20/16 09:00 Pulse 89 07/20/16 17:00 Resp 19 07/20/16 17:00 BP 135/78 07/20/16 17:00 Pulse Ox 97 07/20/16 17:00 Intake & Output 07/19/16 07/20/16 07/20/16 18:59 06:59 18:59 Intake Total 47.961 2206.70 1557.52 Output Total 1200 1450 Balance 47.961 1006.70 107.52 Weight 84.368 kg 84.368 kg Intake: IV 1650 520 D5-0.45% NaCl with KCl 1650 500 20Meq/l 1,000 ml @ 150 mls/hr IV .Q6H40M [facility] Rx# :[id number] Normal saline 20 Intake, IV Titration 47.961 556.70 557.52 Amount Insulin Regular 100 unit 47.961 56.70 82.52 In Sodium Chloride 0.9% 100 ml @ 0.1 UNITS/KG/HR 8.52 mls/hr IV .[id number] [facility] Rx#:[id number] Magnesium Sulfate-D5w Pmx 100 1 gm In Dextrose/Water 1 100ml.bag @ 100 mls/hr IVPB Q1H [facility] Rx#: [id number] Sodium Phosphate 10 mmol 500 In Sodium Chloride 0.9% 250 ml @ 125 mls/hr IVPB Q2H [facility] Rx#:[id number] Sodium Phosphate 10 mmol 375 In Sodium Chloride 0.9% 250 ml @ 125 mls/hr IVPB Q2H [facility] Rx#:[id number] Oral 480 Output: Urine 1200 1450 Other: Voiding Method Urinal Urinal # Voids 1 1 - Exam GENERAL EXAM: Alert, active, comfortable in no apparent distress. HEAD: Normocephalic. EYES: Normal reaction of pupils, equal size. NOSE: Clear with pink turbinates. THROAT: No erythema or exudates. NECK: No masses, no JVD. CHEST: No chest wall deformity. LUNGS: Equal air entry with no crackles, wheeze, rhonchi or dullness. CVS: S1 and S2 normal with no audible mumurs, regular rhythm. ABDOMEN: No hepatosplenomegaly, normal bowel sounds, no guarding or rigidity. SPINE: No scoliosis or deformity SKIN: No rashes CENTRAL NERVOUS SYSTEM: No focal deficits, tone is normal in all 4 extremities. Sturman is: There is no significant peripheral edema. No clubbing, no cyanosis. Peripheral pulses are intact. - Labs CBC & Chem 7: 07/20/16 04:33 07/20/16 11:08 Labs: Abnormal Lab Results - Last 24 Hours (Table) 07/19/16 07/19/16 07/19/16 Range/Units 18:10 18:52 19:10 WBC (3.8-10.6) k/uL RBC (4.30-5.90) m/uL Hgb (13.0-17.5) gm/dL Hct (39.0-53.0) % Neutrophils # (1.3-7.7) k/uL Lymphocytes # (1.0-4.8) k/uL ABG pCO2 23 L (35-45) mmHg ABG HCO3 15 L (21-25) mmol/L ABG Total CO2 16 L (19-24) mmol/L ABG O2 Saturation 98.0 H (94-97) % Sodium (137-145) mmol/L Potassium (3.5-5.1) mmol/L BUN (9-20) mg/dL Creatinine (0.66-1.25) mg/dL Glucose (74-99) mg/dL POC Glucose (mg/dL) 200 H 225 H (75-99) mg/dL Hemoglobin A1c (4.2-6.1) % Calcium (8.4-10.2) mg/dL Phosphorus (2.5-4.5) mg/dL Magnesium (1.6-2.3) mg/dL 07/19/16 07/19/16 07/19/16 Range/Units 20:05 21:02 22:00 WBC (3.8-10.6) k/uL RBC (4.30-5.90) m/uL Hgb (13.0-17.5) gm/dL Hct (39.0-53.0) % Neutrophils # (1.3-7.7) k/uL Lymphocytes # (1.0-4.8) k/uL ABG pCO2 (35-45) mmHg ABG HCO3 (21-25) mmol/L ABG Total CO2 (19-24) mmol/L ABG O2 Saturation (94-97) % Sodium (137-145) mmol/L Potassium (3.5-5.1) mmol/L BUN (9-20) mg/dL Creatinine (0.66-1.25) mg/dL Glucose (74-99) mg/dL POC Glucose (mg/dL) 228 H 209 H 232 H (75-99) mg/dL Hemoglobin A1c (4.2-6.1) % Calcium (8.4-10.2) mg/dL Phosphorus (2.5-4.5) mg/dL Magnesium (1.6-2.3) mg/dL 07/19/16 07/19/16 07/20/16 Range/Units 23:01 23:48 00:55 WBC (3.8-10.6) k/uL RBC (4.30-5.90) m/uL Hgb (13.0-17.5) gm/dL Hct (39.0-53.0) % Neutrophils # (1.3-7.7) k/uL Lymphocytes # (1.0-4.8) k/uL ABG pCO2 (35-45) mmHg ABG HCO3 (21-25) mmol/L ABG Total CO2 (19-24) mmol/L ABG O2 Saturation (94-97) % Sodium (137-145) mmol/L Potassium (3.5-5.1) mmol/L BUN (9-20) mg/dL Creatinine (0.66-1.25) mg/dL Glucose (74-99) mg/dL POC Glucose (mg/dL) 216 H 208 H 220 H (75-99) mg/dL Hemoglobin A1c (4.2-6.1) % Calcium (8.4-10.2) mg/dL Phosphorus (2.5-4.5) mg/dL Magnesium (1.6-2.3) mg/dL 07/20/16 07/20/16 07/20/16 Range/Units 02:12 04:00 04:33 WBC (3.8-10.6) k/uL RBC (4.30-5.90) m/uL Hgb (13.0-17.5) gm/dL Hct (39.0-53.0) % Neutrophils # (1.3-7.7) k/uL Lymphocytes # (1.0-4.8) k/uL ABG pCO2 (35-45) mmHg ABG HCO3 (21-25) mmol/L ABG Total CO2 (19-24) mmol/L ABG O2 Saturation (94-97) % Sodium (137-145) mmol/L Potassium (3.5-5.1) mmol/L BUN (9-20) mg/dL Creatinine (0.66-1.25) mg/dL Glucose (74-99) mg/dL POC Glucose (mg/dL) 190 H 195 H (75-99) mg/dL Hemoglobin A1c 7.3 H (4.2-6.1) % Calcium (8.4-10.2) mg/dL Phosphorus (2.5-4.5) mg/dL Magnesium (1.6-2.3) mg/dL 07/20/16 07/20/16 07/20/16 Range/Units 04:33 04:33 04:57 WBC 11.9 H (3.8-10.6) k/uL RBC 3.72 L (4.30-5.90) m/uL Hgb 11.4 L (13.0-17.5) gm/dL Hct 34.7 L (39.0-53.0) % Neutrophils # 10.0 H (1.3-7.7) k/uL Lymphocytes # 0.9 L (1.0-4.8) k/uL ABG pCO2 (35-45) mmHg ABG HCO3 (21-25) mmol/L ABG Total CO2 (19-24) mmol/L ABG O2 Saturation (94-97) % Sodium 135 L (137-145) mmol/L Potassium 3.0 L* (3.5-5.1) mmol/L BUN 3 L (9-20) mg/dL Creatinine 0.40 L (0.66-1.25) mg/dL Glucose 203 H (74-99) mg/dL POC Glucose (mg/dL) 180 H (75-99) mg/dL Hemoglobin A1c (4.2-6.1) % Calcium 7.6 L (8.4-10.2) mg/dL Phosphorus (2.5-4.5) mg/dL Magnesium 1.5 L (1.6-2.3) mg/dL 07/20/16 07/20/16 07/20/16 Range/Units 06:03 06:53 08:49 WBC (3.8-10.6) k/uL RBC (4.30-5.90) m/uL Hgb (13.0-17.5) gm/dL Hct (39.0-53.0) % Neutrophils # (1.3-7.7) k/uL Lymphocytes # (1.0-4.8) k/uL ABG pCO2 (35-45) mmHg ABG HCO3 (21-25) mmol/L ABG Total CO2 (19-24) mmol/L ABG O2 Saturation (94-97) % Sodium (137-145) mmol/L Potassium (3.5-5.1) mmol/L BUN (9-20) mg/dL Creatinine (0.66-1.25) mg/dL Glucose (74-99) mg/dL POC Glucose (mg/dL) 194 H 239 H 307 H (75-99) mg/dL Hemoglobin A1c (4.2-6.1) % Calcium (8.4-10.2) mg/dL Phosphorus (2.5-4.5) mg/dL Magnesium (1.6-2.3) mg/dL 07/20/16 07/20/16 07/20/16 Range/Units 10:37 11:08 12:06 WBC (3.8-10.6) k/uL RBC (4.30-5.90) m/uL Hgb (13.0-17.5) gm/dL Hct (39.0-53.0) % Neutrophils # (1.3-7.7) k/uL Lymphocytes # (1.0-4.8) k/uL ABG pCO2 (35-45) mmHg ABG HCO3 (21-25) mmol/L ABG Total CO2 (19-24) mmol/L ABG O2 Saturation (94-97) % Sodium 134 L (137-145) mmol/L Potassium 3.4 L (3.5-5.1) mmol/L BUN 2 L (9-20) mg/dL Creatinine 0.49 L (0.66-1.25) mg/dL Glucose 221 H (74-99) mg/dL POC Glucose (mg/dL) 256 H 177 H (75-99) mg/dL Hemoglobin A1c (4.2-6.1) % Calcium 8.0 L (8.4-10.2) mg/dL Phosphorus 1.4 L (2.5-4.5) mg/dL Magnesium (1.6-2.3) mg/dL 07/20/16 Range/Units 14:37 WBC (3.8-10.6) k/uL RBC (4.30-5.90) m/uL Hgb (13.0-17.5) gm/dL Hct (39.0-53.0) % Neutrophils # (1.3-7.7) k/uL Lymphocytes # (1.0-4.8) k/uL ABG pCO2 (35-45) mmHg ABG HCO3 (21-25) mmol/L ABG Total CO2 (19-24) mmol/L ABG O2 Saturation (94-97) % Sodium (137-145) mmol/L Potassium (3.5-5.1) mmol/L BUN (9-20) mg/dL Creatinine (0.66-1.25) mg/dL Glucose (74-99) mg/dL POC Glucose (mg/dL) 123 H (75-99) mg/dL Hemoglobin A1c (4.2-6.1) % Calcium (8.4-10.2) mg/dL Phosphorus (2.5-4.5) mg/dL Magnesium (1.6-2.3) mg/dL Microbiology - Last 24 Hours (Table) 07/19/16 08:48 Urine Culture - Final Urine,Voided Assessment and Plan Plan: #1 Acute diabetic ketoacidosis with new onset diabetes mellitus secondary to recent acute pancreatitis. Patient is feeling much better today, all his labs were reviewed, I will transfer the patient out of the ICU to a regular medical floor. #2 Metabolic acidosis secondary to above. #3 Alcoholism by history however according to the patient he drank alcohol over 2 weeks ago. #4 Hypertension. #5 Gastroesophageal reflux disease. #6 Anxiety/depression. Recommendation: Continue present treatment plan, transfer out of the ICU today. And will follow on an as-needed basis. Time with Patient: Less than 30
[2016-07-20 17:38] LABS: Glucose,Whole Blood 157 mg/dL (75-99)
[2016-07-20] MEDS: INSULIN LISPRO (humaLOG) 300 UNIT/3 ML VIAL SQ SCH ×3 (17:52→21:02)
--- NOTE | 2016-07-20 20:00 | HP ---
DATE OF ADMISSION: CHIEF COMPLAINTS: Nausea, vomiting and generalized fatigue. HISTORY OF PRESENT ILLNESS: This is a 31-year-old gentleman who was admitted to the hospital within the last 2 weeks with complaints of severe abdominal pain. Patient was diagnosed with acute pancreatitis secondary to alcohol intake. Patient did have an abnormal M.R.C.P. at that time; thereafter underwent ERCP and was noted to have a normal pancreatic duct. Patient was discharged home; at that time was noted to have slight hyperglycemia; however, it was felt that the pancreas would recover in regards to insulin secretion, and hence he was discharged home to be monitored closely. However, patient thereafter started progressively getting worse in regards to having intermittent nausea and generalized fatigue. Patient stated that he was not feeling himself. Hence he came into the ER for ongoing care. Patient was noted to be in diabetic ketoacidosis with a large anion gap. Patient was placed on the DKA protocol thereafter and the gap was closed. Patient was seen earlier today on 07/20/2016. Patient was tolerating diet; states his main complaints were lower back pain and some left flank pain. Of note, patient does complain of a distended abdomen. Denies having any fevers, chills, chest pain, difficulty in breathing, urinary urgency or frequency, change in bowel habits at this time. REVIEW OF SYSTEMS: Fourteen-point review of systems was done; none pertinent other than those mentioned in the HPI. PAST MEDICAL HISTORY: 1. Alcohol use. 2. Chronic lower back pain. 3. Recent pancreatitis. 4. Major depression. 5. Pre-diabetes with hemoglobin A1C of 6.2. 6. Hypertension. 7. GERD. PAST SURGICAL HISTORY: ERCP. SOCIAL HISTORY: Patient has been alcohol-free for the last 6 days. Continues to deny tobacco or marijuana use. FAMILY HISTORY: Not pertinent to the current admission. MEDICATIONS: Home medications were reviewed and reconciled appropriately. PHYSICAL EXAMINATION: VITAL SIGNS: Temperature is 98.2. Heart rate is 90, respiratory rate 15. Blood pressure is 140/82. Saturating 96% on room air. GENERAL APPEARANCE: Alert, oriented x3. Does not appear to be in distress. Neck is supple. No JVD. HEART: S1, S2 heard. Regular rate and rhythm. No murmurs appreciated. LUNGS: Good air entry. Clear to auscultation. No rhonchi or wheezing noted. ABDOMEN: Soft; however, distended. There is a fluid wave that could be appreciated on palpation. There is tenderness to palpation on the left flank to paravertebral region in the lumbar area. NEUROLOGIC EXAM: No focal motor or sensory deficits noted. LOWER EXTREMITIES: No edema noted. Laboratory data include white count of 11.9, hemoglobin 11.4, hematocrit 34.7, platelets of 265. Sodium 134, potassium 3.4, chloride 100, bicarb 26. BUN 2, creatinine 0.49. ASSESSMENT AND PLAN: 1. Diabetic ketoacidosis in a patient with pre-diabetes who recently had a flare of severe pancreatitis; hence underlying etiology is likely pancreatitis-induced diabetes mellitus. 2. Mildly decompensated acute liver cirrhosis. 3. History of alcohol abuse. 4. History of hypertension. 5. Leukocytosis, likely reactive, which is improved. 6. Chronic back pain. PLAN: Patient will be initiated on insulin therapy at this time, as the etiology of diabetes is secondary to pancreatic failure from a recent flareup of pancreatitis. Oral hypoglycemics would be an appropriate administration. A C-peptide will be obtained. If patient continues to have complete alcohol cessation, the pancreas could recover. Would recommend that Dr. Rosado repeat a C-peptide 4 to 6 weeks later to range if there is any improvement to evaluate the insulin secretion from the pancreas. In regards to the patient's ascites, patient will be initiated on spironolactone 25 mg p.o. daily and Lasix 20 mg p.o. daily. A repeat abdominal ultrasound will be obtained tomorrow. Continue ongoing care. This was discussed with the patient. Patient will likely be discharged home in the next 24 hours.
[2016-07-20] MEDS: HYDROcodone/APAP 7.5-325MG 1 EACH TAB PO PRN (20:08)
[2016-07-20 20:32] LABS: Glucose,Whole Blood 167 mg/dL (75-99)
--- NOTE | 2016-07-20 20:56 | US ---
EXAMINATION TYPE: US abdomen limited DATE OF EXAM: 07/20/2016 8:37 PM COMPARISON: NONE CLINICAL HISTORY: ascites. Abdominal pain, distention TECHNOLOGIST IMPRESSION: No evidence of fluid at this time IMPRESSION: There is no evidence of abdominal ascites. All 4 quadrants were scanned.
[2016-07-20] MEDS: FUROSEMIDE 20 MG TAB PO SCH (21:01)
[2016-07-20] MEDS: CITALOPRAM HYDROBROMIDE 20 MG TAB PO SCH (21:01)
[2016-07-20] MEDS: SPIRONOLACTONE 25 MG TAB PO SCH (21:02)
[2016-07-20] MEDS: FENOFIBRATE 160 MG TAB PO SCH (21:02)
[2016-07-20] MEDS: INSULIN DETEMIR 100 UNIT/ML 10 ML VIAL SQ SCH (21:05)
[2016-07-21] MEDS: POTASSIUM CHLORIDE 10 MEQ, LIDOCAINE 2% INJ 10 MG in SODIUM CHLORIDE 0.9% 100 ML IV SCH ×4 (00:05→11:05)
[2016-07-21] MEDS: HYDROcodone/APAP 7.5-325MG 1 EACH TAB PO PRN ×4 (01:52→21:38)
[2016-07-21 02:08] LABS: Glucose,Whole Blood 181 mg/dL (75-99)
[2016-07-21 05:23] LABS: CH 30.8; CHCM 33.2; HDW 2.91; HGB 11.2 gm/dL (13.0-17.5); Immature Gran Flag Marked; MCH 30.5 pg (25.0-35.0); MCHC 32.8 g/dL (31.0-37.0); MCV 93.1 fL (80.0-100.0); Mean Platelet Volume 8.5; RBC 3.65 m/uL (4.30-5.90); RDW 13.7 % (11.5-15.5); WBC 8.2 k/uL (3.8-10.6)
[2016-07-21 05:43] LABS: ALT 39 U/L (21-72); AST 24 U/L (17-59); Alkaline Phosphatase 99 U/L (38-126); Anion Gap 6 mmol/L; Blood Urea Nitrogen 2 mg/dL (9-20); Carbon Dioxide 30 mmol/L (22-30); Chloride 99 mmol/L (98-107); Glucose 152 mg/dL (74-99); Magnesium 1.8 mg/dL (1.6-2.3); Non-African American GFR(MDRD) >60 (>60 ml/min/1.73 sqM); Phosphorous 2.2 mg/dL (2.5-4.5); Potassium 3.3 mmol/L (3.5-5.1); Sodium 135 mmol/L (137-145); Total Bilirubin 0.9 mg/dL (0.2-1.3); Total Protein 5.5 g/dL (6.3-8.2)
[2016-07-21 06:45] LABS: Add Differential Manual Differential
[2016-07-21 06:48] LABS: Manual Review Performed; Nucleated Red Blood Cells 0 /100 WBC (0-0); Total Cells Counted 200
[2016-07-21 07:19] LABS: Glucose,Whole Blood 137 mg/dL (75-99)
[2016-07-21] MEDS: BACLOFEN 10 MG TAB PO SCH ×3 (07:59→21:38)
[2016-07-21] MEDS: CARVEDILOL 6.25 MG TAB PO SCH ×2 (07:59→17:55)
[2016-07-21] MEDS: FAMOTIDINE 20 MG TAB PO SCH ×2 (08:00→21:38)
[2016-07-21] MEDS: FOLIC ACID 1 MG TAB PO SCH (08:01)
[2016-07-21] MEDS: THIAMINE 100 MG TAB PO SCH (08:01)
[2016-07-21] MEDS: FUROSEMIDE 20 MG TAB PO SCH (08:01)
[2016-07-21] MEDS: INSULIN LISPRO (humaLOG) 300 UNIT/3 ML VIAL SQ SCH ×7 (08:01→21:41)
[2016-07-21] MEDS: SPIRONOLACTONE 25 MG TAB PO SCH (08:01)
[2016-07-21 12:19] LABS: Glucose,Whole Blood 190 mg/dL (75-99)
--- NOTE | 2016-07-21 17:30 | P.PN ---
Subjective Is a 31-year-old gentleman who was recently in the hospital for severe pancreatitis induced secondary to alcohol use comes into the hospital with nausea vomiting. Patient was noted to be in diabetic ketoacidosis. Few weeks ago patient's A1c was 6.2 Current a hba1c to is over 7.5. Patient's anion gap was closed. Patient was started on Levemir. Patient's glucose levels have been appropriate thereafter. Denies having any headaches, blurry vision, nausea, nausea, vomiting, diarrhea. Objective - Vital Signs Vital signs: Vital Signs Temp 98.2 F 07/21/16 15:00 Pulse 86 07/21/16 15:00 Resp 16 07/21/16 15:00 BP 144/84 07/21/16 15:00 Pulse Ox 97 07/21/16 15:00 Intake & Output 07/20/16 07/21/16 07/21/16 18:59 06:59 18:59 Intake Total 1557.52 1865 600 Output Total 1450 1040 625 Balance 107.52 825 -25 Weight 84.368 kg 88 kg Intake: IV 520 D5-0.45% NaCl with KCl 500 20Meq/l 1,000 ml @ 150 mls/hr IV .Q6H40M [facility] Rx# :[id number] Normal saline 20 Intake, IV Titration 557.52 575 Amount Insulin Regular 100 unit 82.52 In Sodium Chloride 0.9% 100 ml @ 0.1 UNITS/KG/HR 8.52 mls/hr IV .[id number] [facility] Rx#:[id number] Magnesium Sulfate-D5w Pmx 100 1 gm In Dextrose/Water 1 100ml.bag @ 100 mls/hr IVPB Q1H [facility] Rx#: [id number] Potassium Chloride 10 meq 200 Lidocaine 2% Inj 10 mg In Sodium Chloride 0.9% 100 ml @ 100 mls/hr IV Q1HR [facility] Rx#:[id number] Sodium Phosphate 10 mmol 375 In Sodium Chloride 0.9% 250 ml @ 125 mls/hr IVPB Q2H [facility] Rx#:[id number] Sodium Phosphate 10 mmol 375 In Sodium Chloride 0.9% 250 ml @ 125 mls/hr IVPB Q2H [facility] Rx#:[id number] Oral 480 1290 600 Output: Urine 1450 1040 625 Other: Voiding Method Urinal Urinal Urinal # Voids 1 2 # Bowel Movements 1 - Exam Physical exam Gen. appearance oriented 3 in no distress Neck is supple no JVD Lungs good air entry clear to auscultation no rhonchi or wheezing Heart S1-S2 heard regular rate and rhythm no murmurs appreciated Abdomen distended tender to palpation diffusely. Neurologically cranial nerves II-12 grossly intact no focal motor or sensory deficits noted Skin no abnormalities appreciated - Labs CBC & Chem 7: 07/21/16 04:57 07/21/16 13:45 Labs: Abnormal Lab Results - Last 24 Hours (Table) 07/20/16 07/20/16 07/20/16 Range/Units 11:08 17:37 19:08 RBC (4.30-5.90) m/uL Hgb (13.0-17.5) gm/dL Hct (39.0-53.0) % Sodium (137-145) mmol/L Potassium 3.4 L (3.5-5.1) mmol/L BUN (9-20) mg/dL Creatinine (0.66-1.25) mg/dL Glucose (74-99) mg/dL POC Glucose (mg/dL) 157 H (75-99) mg/dL C-Peptide 0.21 L (0.81-3.85) ng/mL Calcium (8.4-10.2) mg/dL Phosphorus (2.5-4.5) mg/dL Total Protein (6.3-8.2) g/dL Albumin (3.5-5.0) g/dL 07/20/16 07/21/16 07/21/16 Range/Units 20:28 01:56 04:57 RBC (4.30-5.90) m/uL Hgb (13.0-17.5) gm/dL Hct (39.0-53.0) % Sodium 135 L (137-145) mmol/L Potassium 3.3 L (3.5-5.1) mmol/L BUN 2 L (9-20) mg/dL Creatinine 0.49 L (0.66-1.25) mg/dL Glucose 152 H (74-99) mg/dL POC Glucose (mg/dL) 167 H 181 H (75-99) mg/dL C-Peptide (0.81-3.85) ng/mL Calcium 8.0 L (8.4-10.2) mg/dL Phosphorus 2.2 L (2.5-4.5) mg/dL Total Protein 5.5 L (6.3-8.2) g/dL Albumin 2.7 L (3.5-5.0) g/dL 07/21/16 07/21/16 07/21/16 Range/Units 04:57 07:14 12:14 RBC 3.65 L (4.30-5.90) m/uL Hgb 11.2 L (13.0-17.5) gm/dL Hct 34.0 L (39.0-53.0) % Sodium (137-145) mmol/L Potassium (3.5-5.1) mmol/L BUN (9-20) mg/dL Creatinine (0.66-1.25) mg/dL Glucose (74-99) mg/dL POC Glucose (mg/dL) 137 H 190 H (75-99) mg/dL C-Peptide (0.81-3.85) ng/mL Calcium (8.4-10.2) mg/dL Phosphorus (2.5-4.5) mg/dL Total Protein (6.3-8.2) g/dL Albumin (3.5-5.0) g/dL Microbiology - Last 24 Hours (Table) 07/19/16 08:48 Urine Culture - Final Urine,Voided Assessment and Plan Plan: #1 diabetes mellitus type 1 secondary to severe pancreatitis #2 DKA #3 history of chronic back pain #4 history of hypertension #5 depression #6 dyslipidemia Plan Patient would've been likely discharge however discussed with case management in regards to providing glucometers and insulin supplies. We'll discharge the patient tomorrow if we are able to obtain the supplies and diabetic education including glucose testing and use of insulin via syringe will be taught. Continue ongoing care.
[2016-07-21 17:31] LABS: Glucose,Whole Blood 173 mg/dL (75-99)
[2016-07-21 20:27] LABS: Glucose,Whole Blood 185 mg/dL (75-99)
[2016-07-21] MEDS: FENOFIBRATE 160 MG TAB PO SCH (21:37)
[2016-07-21] MEDS: CITALOPRAM HYDROBROMIDE 20 MG TAB PO SCH (21:37)
[2016-07-21] MEDS: INSULIN DETEMIR 100 UNIT/ML 10 ML VIAL SQ SCH (21:41)
[2016-07-22] MEDS: HYDROcodone/APAP 7.5-325MG 1 EACH TAB PO PRN ×4 (05:02→22:42)
[2016-07-22 07:24] LABS: Glucose,Whole Blood 153 mg/dL (75-99)
[2016-07-22 07:31] LABS: Basophils # (A) 0.1 k/uL (0-0.2); Basophils % (A) 1 %; CH 30.7; CHCM 33.1; Eosinophils % (A) 0 %; HCT 34.4 % (39.0-53.0); HDW 2.87; HGB 11.1 gm/dL (13.0-17.5); Luc # (Auto) 0.17; Luc % (Auto) 2; Lymphocytes # (A) 1.2 k/uL (1.0-4.8); Lymphocytes % (A) 13 %; MCH 30.1 pg (25.0-35.0); MCHC 32.3 g/dL (31.0-37.0); MCV 93.3 fL (80.0-100.0); Mean Platelet Volume 8.5; Monocytes # (A) 0.5 k/uL (0-1.0); Monocytes % (A) 6 %; Neutrophils % (A) 78 %; RBC 3.69 m/uL (4.30-5.90); RDW 13.8 % (11.5-15.5); WBC (Perox) 9.84
[2016-07-22 07:49] LABS: Anion Gap 8 mmol/L; Blood Urea Nitrogen 5 mg/dL (9-20); Calcium 8.4 mg/dL (8.4-10.2); Carbon Dioxide 30 mmol/L (22-30); Chloride 99 mmol/L (98-107); Glucose 161 mg/dL (74-99); Magnesium 1.8 mg/dL (1.6-2.3); Non-African American GFR(MDRD) >60 (>60 ml/min/1.73 sqM); Phosphorous 2.7 mg/dL (2.5-4.5); Potassium 3.8 mmol/L (3.5-5.1); Sodium 137 mmol/L (137-145)
[2016-07-22] MEDS: BACLOFEN 10 MG TAB PO SCH ×3 (08:05→20:39)
[2016-07-22] MEDS: FAMOTIDINE 20 MG TAB PO SCH ×2 (08:05→20:40)
[2016-07-22] MEDS: CARVEDILOL 6.25 MG TAB PO SCH ×2 (08:05→17:32)
[2016-07-22] MEDS: INSULIN LISPRO (humaLOG) 300 UNIT/3 ML VIAL SQ SCH ×7 (08:06→20:40)
[2016-07-22] MEDS: SPIRONOLACTONE 25 MG TAB PO SCH (08:06)
[2016-07-22] MEDS: THIAMINE 100 MG TAB PO SCH (08:06)
[2016-07-22] MEDS: FOLIC ACID 1 MG TAB PO SCH (08:06)
[2016-07-22] MEDS: FUROSEMIDE 20 MG TAB PO SCH (08:06)
[2016-07-22 11:40] LABS: Glucose,Whole Blood 143 mg/dL (75-99)
[2016-07-22 16:48] LABS: Glucose,Whole Blood 164 mg/dL (75-99)
--- NOTE | 2016-07-22 17:03 | P.PN ---
Subjective Is a 31-year-old gentleman who was recently in the hospital for severe pancreatitis induced secondary to alcohol use comes into the hospital with nausea vomiting. Patient was noted to be in diabetic ketoacidosis. Few weeks ago patient's A1c was 6.2 Current a hba1c to is over 7.5. Patient's anion gap was closed. Patient was started on Levemir. Patient's glucose levels have been appropriate thereafter. Denies having any headaches, blurry vision, nausea, nausea, vomiting, diarrhea. 07/22/2016 No new overnight events. Objective - Vital Signs Vital signs: Vital Signs Temp 97.7 F 07/22/16 15:00 Pulse 86 07/22/16 15:00 Resp 16 07/22/16 15:00 BP 124/70 07/22/16 15:00 Pulse Ox 94 L 07/22/16 15:00 Intake & Output 07/21/16 07/22/16 07/22/16 18:59 06:59 18:59 Intake Total 600 300 720 Output Total 625 700 Balance -25 -400 720 Weight 87.5 kg Intake: Oral 600 300 720 Output: Urine 625 700 Other: Voiding Method Urinal Urinal Urinal # Voids 2 2 # Bowel Movements 1 - Exam Physical exam Gen. appearance oriented 3 in no distress Neck is supple no JVD Lungs good air entry clear to auscultation no rhonchi or wheezing Heart S1-S2 heard regular rate and rhythm no murmurs appreciated Abdomen distended tender to palpation diffusely. Neurologically cranial nerves II-12 grossly intact no focal motor or sensory deficits noted Skin no abnormalities appreciated - Labs CBC & Chem 7: 07/22/16 07:04 07/22/16 07:04 Labs: Abnormal Lab Results - Last 24 Hours (Table) 07/21/16 07/21/16 07/22/16 Range/Units 17:29 20:22 07:04 RBC 3.69 L (4.30-5.90) m/uL Hgb 11.1 L (13.0-17.5) gm/dL Hct 34.4 L (39.0-53.0) % BUN (9-20) mg/dL Creatinine (0.66-1.25) mg/dL Glucose (74-99) mg/dL POC Glucose (mg/dL) 173 H 185 H (75-99) mg/dL 07/22/16 07/22/16 07/22/16 Range/Units 07:04 07:20 11:36 RBC (4.30-5.90) m/uL Hgb (13.0-17.5) gm/dL Hct (39.0-53.0) % BUN 5 L (9-20) mg/dL Creatinine 0.49 L (0.66-1.25) mg/dL Glucose 161 H (74-99) mg/dL POC Glucose (mg/dL) 153 H 143 H (75-99) mg/dL 07/22/16 Range/Units 16:46 RBC (4.30-5.90) m/uL Hgb (13.0-17.5) gm/dL Hct (39.0-53.0) % BUN (9-20) mg/dL Creatinine (0.66-1.25) mg/dL Glucose (74-99) mg/dL POC Glucose (mg/dL) 164 H (75-99) mg/dL Assessment and Plan Plan: #1 diabetes mellitus type 1 secondary to severe pancreatitis #2 DKA #3 history of chronic back pain #4 history of hypertension #5 depression #6 dyslipidemia Plan Patient would've been likely discharge however discussed with case management in regards to providing glucometers and insulin supplies. We'll discharge the patient tomorrow if we are able to obtain the supplies and diabetic education including glucose testing and use of insulin via syringe will be taught. Continue ongoing care.
[2016-07-22 20:30] LABS: Glucose,Whole Blood 189 mg/dL (75-99)
[2016-07-22] MEDS: INSULIN DETEMIR 100 UNIT/ML 10 ML VIAL SQ SCH (20:39)
[2016-07-22] MEDS: CITALOPRAM HYDROBROMIDE 20 MG TAB PO SCH (20:40)
[2016-07-22] MEDS: FENOFIBRATE 160 MG TAB PO SCH (20:40)
[2016-07-23] MEDS: HYDROcodone/APAP 7.5-325MG 1 EACH TAB PO PRN ×3 (03:56→16:30)
[2016-07-23] MEDS: INSULIN LISPRO (humaLOG) 300 UNIT/3 ML VIAL SQ SCH ×4 (07:04→13:10)
[2016-07-23] MEDS: BACLOFEN 10 MG TAB PO SCH ×2 (07:09→16:31)
[2016-07-23] MEDS: SPIRONOLACTONE 25 MG TAB PO SCH (07:09)
[2016-07-23] MEDS: FAMOTIDINE 20 MG TAB PO SCH (07:09)
[2016-07-23] MEDS: FUROSEMIDE 20 MG TAB PO SCH (07:10)
[2016-07-23] MEDS: CARVEDILOL 6.25 MG TAB PO SCH (07:11)
[2016-07-23] MEDS: THIAMINE 100 MG TAB PO SCH (07:11)
[2016-07-23] MEDS: FOLIC ACID 1 MG TAB PO SCH (07:12)
[2016-07-23 07:14] LABS: Glucose,Whole Blood 130 mg/dL (75-99)
[2016-07-23 07:47] VITALS: BP 131/75; RESP 15; TEMP 98.1
[2016-07-23 07:52] LABS: Basophils # (A) 0.1 k/uL (0-0.2); Basophils % (A) 1 %; CH 30.7; CHCM 32.4; Eosinophils # (A) 0.1 k/uL (0-0.7); Eosinophils % (A) 1 %; HCT 37.4 % (39.0-53.0); HDW 2.86; HGB 11.7 gm/dL (13.0-17.5); Luc # (Auto) 0.16; Luc % (Auto) 2; Lymphocytes # (A) 1.7 k/uL (1.0-4.8); Lymphocytes % (A) 17 %; MCH 29.9 pg (25.0-35.0); MCHC 31.3 g/dL (31.0-37.0); MCV 95.3 fL (80.0-100.0); Monocytes # (A) 0.6 k/uL (0-1.0); Monocytes % (A) 6 %; Neutrophils # (A) 7.7 k/uL (1.3-7.7); Neutrophils % (A) 74 %; RBC 3.92 m/uL (4.30-5.90); RDW 14.1 % (11.5-15.5); WBC 10.4 k/uL (3.8-10.6); WBC (Perox) 10.77
[2016-07-23 08:05] LABS: Anion Gap 8 mmol/L; Blood Urea Nitrogen 8 mg/dL (9-20); Carbon Dioxide 34 mmol/L (22-30); Chloride 97 mmol/L (98-107); Glucose 130 mg/dL (74-99); Magnesium 1.7 mg/dL (1.6-2.3); Non-African American GFR(MDRD) >60 (>60 ml/min/1.73 sqM); Potassium 4.8 mmol/L (3.5-5.1); Sodium 139 mmol/L (137-145)
[2016-07-23 08:53] VITALS: PULSE 86
[2016-07-23 16:24] LABS: Glucose,Whole Blood 225 mg/dL (75-99)
--- NOTE | 2016-07-23 18:03 | P.DS ---
Providers Date of admission: 07/19/16 08:14 Attending physician: Elizabet Kathleen Consults: 07/19/16 08:27 Consult Physician Stat Consulting Provider: Alex Melchor Reason/Comments: Severe metabolic acidosis Do you want consulting provider notified?: Yes [facility] Course: s a 31-year-old gentleman who was recently in the hospital for severe pancreatitis induced secondary to alcohol use comes into the hospital with nausea vomiting. Patient was noted to be in diabetic ketoacidosis. Few weeks ago patient's A1c was 6.2 Current a hba1c to is over 7.5. Patient's anion gap was closed. Patient was started on Levemir. Patient's glucose levels have been appropriate thereafter. Denies having any headaches, blurry vision, nausea, nausea, vomiting, diarrhea. 07/22/2016 No new overnight events. Objective - Vital Signs Vital signs: Vital Signs Temp 97.7 F 07/22/16 15:00 Pulse 86 07/22/16 15:00 Resp 16 07/22/16 15:00 BP 124/70 07/22/16 15:00 Pulse Ox 94 L 07/22/16 15:00 Intake & Output 07/21/16 07/22/16 07/22/16 18:59 06:59 18:59 Intake Total 600 300 720 Output Total 625 700 Balance -25 -400 720 Weight 87.5 kg Intake: Oral 600 300 720 Output: Urine 625 700 Other: Voiding Method Urinal Urinal Urinal # Voids 2 2 # Bowel Movements 1 - Exam Physical exam Gen. appearance oriented 3 in no distress Neck is supple no JVD Lungs good air entry clear to auscultation no rhonchi or wheezing Heart S1-S2 heard regular rate and rhythm no murmurs appreciated Abdomen distended tender to palpation diffusely. Neurologically cranial nerves II-12 grossly intact no focal motor or sensory deficits noted Skin no abnormalities appreciated Assessment and Plan Plan: #1 diabetes mellitus type 1 secondary to severe pancreatitis #2 DKA #3 history of chronic back pain #4 history of hypertension #5 depression #6 dyslipidemia c-peptide low at 0.21 Repeat levels could guide in changing over to oral anti diabetic medications if pancreatic function improves. Patient Condition at Discharge: Fair Plan - Discharge Summary New Discharge Prescriptions: Furosemide [Lasix] 20 mg PO DAILY #30 tab INSULIN LISPRO (humaLOG) [humaLOG (formulary)] 5 unit SQ AC-TID #2 vial Insulin Detemir [Levemir] 20 unit SQ HS #2 vial Discharge Medication List Citalopram Hydrobromide [CeleXA] 20 mg PO HS 02/05/16 [History] Famotidine [Pepcid] 20 mg PO BID #30 tablet 02/05/16 [Rx] Carvedilol [Coreg] 6.25 mg PO BID #60 tab 03/14/16 [Rx] Fenofibrate Nanocrystallized [Tricor] 145 mg PO HS #30 tablet 03/14/16 [Rx] traZODone HCL 50 mg PO HS PRN 05/08/16 [History] Baclofen [Lioresal] 5 mg PO TID 07/08/16 [History] Folic Acid 1 mg PO DAILY 07/09/16 [History] Thiamine [Vitamin B-1] 100 mg PO DAILY 07/09/16 [History] LORazepam [Ativan] 1 mg PO Q8H PRN #20 tab 07/13/16 [Rx] HYDROcodone/APAP 5-325MG [[place] 5-325] 1 tab PO Q6HR PRN 07/19/16 [History] Furosemide [Lasix] 20 mg PO DAILY #30 tab 07/21/16 [Rx] INSULIN LISPRO (humaLOG) [humaLOG (formulary)] 5 unit SQ AC-TID #2 vial [Rx] Insulin Detemir [Levemir] 20 unit SQ HS #2 vial 07/21/16 [Rx] Follow up Appointment(s)/Referral(s): Luke Rosado DO [Primary Care Provider] - 07/26/16 1:00 pm Patient Instructions/Handouts: Furosemide (By mouth), Insulin Detemir (By injection), Insulin Lispro (By injection), Pancreatitis (GEN), Diabetic Ketoacidosis (GEN), Type 1 Diabetes in Adults (DC) Activity/Diet/Wound Care/Special Instructions: continue to check blood glucose with meter as directed. Report any abnormal to MD Blood sugar less that 70, greater that 250. Actvity as tolerated Diet: consistant carbohydrate diet. script for diabetic supplies to be filled at [facility] Discharge Disposition: HOME SELF-CARE
== END 2016-07-23 16:40 | disposition home or self-care (01) | DRG 637 ==
LOC: EC 06:02 → 6ICU 08:14 → 5MS5E 07-20 18:27
PROVIDERS: ADMIT Hospitalist; ATTEND Hospitalist
DX: E10.10 Type 1 diabetes mellitus with ketoacidosis without coma (principal); K85.20 Alcohol induced acute pancreatitis without necrosis or infection; R18.8 Other ascites; K74.60 Unspecified cirrhosis of liver; G89.29 Other chronic pain; M54.5 Low back pain; E78.5 Hyperlipidemia, unspecified; I10 Essential (primary) hypertension; F32.9 Major depressive disorder, single episode, unspecified; F10.20 Alcohol dependence, uncomplicated; K21.9 Gastro-esophageal reflux disease without esophagitis; F41.1 Generalized anxiety disorder; Z79.899 Other long term (current) drug therapy; Z90.49 Acquired absence of other specified parts of digestive tract
CPT/HCPCS: 36415; 36600; 71020; 74000; 76705; 80048; 80051; 80053; 81003; 82150; 82565; 82805; 82947; 83036; 83605; 83690; 83735; 83930; 84100; 84132; 84484; 84520; 84681; 85025; 87040; 87086; 96361; 96365; 96366; 96368; 96375; 96376; 99291

== ENCOUNTER 2016-07-29 08:24 | Inpatient (IN) | payer OTHER ==
[2016-07-29] MEDS ORDERED: SODIUM CHLORIDE 0.9% 1,000 ML IV STA ×3 (08:31→10:36)
[2016-07-29] MEDS ORDERED: ONDANSETRON 4 MG/2 ML VIAL IVP STA (08:31)
[2016-07-29 08:54] LABS: Glucose,Whole Blood 277 mg/dL (75-99)
[2016-07-29] MEDS ORDERED: HYDROcodone/APAP 5-325MG 1 EACH TAB PO STA (08:54)
--- NOTE | 2016-07-29 09:05 | ED ---
General Adult HPI - General Source: patient, EMS, RN notes reviewed, old records reviewed Mode of arrival: EMS Limitations: no limitations <Kash Lockhart - Last Filed: 07/29/16 10:46> <Dimitrios Colmenares - Last Filed: 07/29/16 10:55> - General Chief complaint: Abdominal Pain Stated complaint: Abdominal Pain - History of Present Illness Initial comments: Patient 31-year-old male who presents emergency room today by EMS, with chief complaint of increased abdominal pain with nausea vomiting and feeling lightheaded and dizzy today. He does admit that he was recently admitted for DKA. States did take his insulin today. States still feeling nauseated. States no medications by EMS were given. Admits to pain in the left side of his abdomen. Admits to history of pancreatitis states he had a flareup approximately a month ago. Patient admits he was admitted at that time. He states he was still having some left sided abdominal pain when he was admitted just a week ago and released just 3 days ago. States these symptoms are the same that he is experiencing but not as severe. Patient mitts that the lightheadedness dizziness is new today. Patient denies any recent fever, chills , shortness of breath, chest pain, back pain, numbness or tingling, dysuria or hematuria, constipation or diarrhea, headaches or visual changes, or any other complaints. (Kash Lockhart) - Related Data Home Medications Medication Instructions Recorded Confirmed Citalopram Hydrobromide [CeleXA] 20 mg PO HS 02/05/16 07/19/16 traZODone HCL 50 mg PO HS PRN 05/08/16 07/29/16 Baclofen [Lioresal] 5 mg PO TID PRN 07/08/16 07/19/16 Thiamine [Vitamin B-1] 100 mg PO DAILY 07/09/16 07/29/16 HYDROcodone/APAP 5-325MG [[place] 1 tab PO Q6HR PRN 07/19/16 07/19/16 5-325] Previous Rx's Medication Instructions Recorded Famotidine [Pepcid] 20 mg PO BID #30 tablet 02/05/16 Carvedilol [Coreg] 6.25 mg PO BID #60 tab 03/14/16 LORazepam [Ativan] 1 mg PO Q8H PRN #20 tab 07/13/16 Furosemide [Lasix] 20 mg PO DAILY #30 tab 07/21/16 INSULIN LISPRO (humaLOG) [humaLOG 5 unit SQ AC-TID #2 vial 07/21/16 (formulary)] Insulin Detemir [Levemir] 20 unit SQ HS #2 vial 07/21/16 Allergies Allergy/AdvReac Type Severity Reaction Status Date / Time Penicillins Allergy Rash/Hives Verified 07/29/16 08:52 Review of Systems ROS Other: All systems not noted in ROS Statement are negative. <Kash Lockhart - Last Filed: 07/29/16 10:46> ROS Other: All systems not noted in ROS Statement are negative. <Dimitrios Colmenares - Last Filed: 07/29/16 10:55> ROS Statement: Those systems with pertinent positive or pertinent negative responses have been documented in the HPI. Past Medical History Past Medical History: Diabetes Mellitus, GERD/Reflux, Hyperlipidemia, Hypertension Additional Past Medical History / Comment(s): Pt recently admitted to [facility] on with acute pancreatitis, acute alcohol hepatitis, acute renal failure. Other hx: pancreatitis, pt states recently worked up for probable diabetes. History of Any Multi-Drug Resistant Organisms: None Reported Past Surgical History: Cholecystectomy Additional Past Surgical History / Comment(s): Jaw surgery as child, wisdom teeth extraction. Past Anesthesia/Blood Transfusion Reactions: No Reported Reaction Past Psychological History: Anxiety, Depression Additional Psychological History / Comment(s): Pt lives alone. He is in the [employer]. He states he is on Celexa for his general anxiety disorder and that it is working well. He is independent. Smoking Status: Never smoker Past Alcohol Use History: None Reported Additional Past Alcohol Use History / Comment(s): Pt states he was drinking a pint or 2 of whiskey a day. He states he last drank 2 weeks ago. Past Drug Use History: None Reported - Past Family History Father Family Medical History: No Reported History, Diabetes Mellitus Mother Family Medical History: No Reported History Additional Family Medical History / Comment(s): Mother is healthy <Kash Lockhart - Last Filed: 07/29/16 10:46> General Exam Limitations: no limitations <Kash Lockhart - Last Filed: 07/29/16 10:46> General appearance: alert, in no apparent distress Head exam: Present: atraumatic, normocephalic, normal inspection Eye exam: Present: normal appearance, PERRL, EOMI. Absent: scleral icterus, conjunctival injection, periorbital swelling ENT exam: Present: normal exam, mucous membranes moist Neck exam: Present: normal inspection. Absent: tenderness, meningismus, lymphadenopathy Respiratory exam: Present: normal lung sounds bilaterally. Absent: respiratory distress, wheezes, rales, rhonchi, stridor Cardiovascular Exam: Present: regular rate, normal rhythm, normal heart sounds. Absent: systolic murmur, diastolic murmur, rubs, gallop, clicks GI/Abdominal exam: Present: soft, tenderness, normal bowel sounds. Absent: distended, guarding, rebound, rigid Extremities exam: Present: normal inspection, full ROM, normal capillary refill. Absent: tenderness, pedal edema, joint swelling, calf tenderness Back exam: Present: normal inspection Neurological exam: Present: alert, oriented X3, CN II-XII intact Psychiatric exam: Present: normal affect, normal mood Skin exam: Present: warm, dry, intact, normal color. Absent: rash <Dimitrios Colmenares - Last Filed: 07/29/16 10:55> - General Exam Comments Initial Comments: General: The patient is awake and alert, in no distress, and does not appear acutely ill. Eye: Pupils are equal, round and reactive to light, extra-ocular movements are intact. No nystagmus. There is normal conjunctiva bilaterally. No signs of icterus. Ears, nose, mouth and throat: There are moist mucous membranes and no oral lesions. Neck: The neck is supple, there is no tenderness or JVD. Cardiovascular: There is a regular rate and rhythm. No murmur, rub or gallop is appreciated. Respiratory: Lungs are clear to auscultation, respirations are non-labored, breath sounds are equal. No wheezes, stridor, rales, or rhonchi. Gastrointestinal: Normal bowel sounds. Abdomen soft on palpation with increased pain to the left side both upper and lower quadrants. No rebound tenderness. No guarding. No CVA tenderness. Musculoskeletal: Normal ROM, no tenderness. Strength 5/5. Sensation intact. Pulses equal bilaterally 2+. Neurological: A&O x 3. CN II-XII intact, There are no obvious motor or sensory deficits. Coordination appears grossly intact. Speech is normal. Skin: Skin is warm and dry and no rashes or lesions are noted. Psychiatric: Cooperative, appropriate mood & affect, normal judgment. (Kash Lockhart) Course <Kash Lockhart - Last Filed: 07/29/16 10:46> <Dimitrios Colmenares - Last Filed: 07/29/16 10:55> Vital Signs 07/29/16 07/29/16 08:26 09:40 Temperature 97.7 F Pulse Rate 97 87 Respiratory 18 18 Rate Blood Pressure 126/64 114/57 O2 Sat by Pulse 100 100 Oximetry - Reevaluation(s) Reevaluation #1: 07/29/16 10:54 Patient sniffily dehydrated, did take insulin prior to arrival, appears to have symptoms of DKA with severe dehydration, we'll first attempt fluid resuscitation holding insulin drip for low blood sugar (Dimitrios Colmenares) Medical Decision Making - Lab Data Result diagrams: 07/29/16 08:45 07/29/16 08:45 <Kash Lockhart - Last Filed: 07/29/16 10:46> - Lab Data Result diagrams: 07/29/16 08:45 07/29/16 08:45 <Dimitrios Colmenares - Last Filed: 07/29/16 10:55> - Medical Decision Making Case discussed in detail with attending physician Dr. Colmenares. Patient reexamined at this time is resting in the stretcher comfortably. Patient still expresses some left-sided abdominal pain. Patient's labs been reviewed does show elevated white cell count at 24,000. Patient's hemoglobin 8.8 which appears new compared to previous labs. Denies any history of anemia. Patient' s kidney function elevated. Denies any history of renal failure. Patient continue IV fluids here in the emergency room. Patient's glucose mildly elevated currently 226. Given 2 L of fluids here in the emergency room. Patient admits that he took his insulin prior to arrival. Patient acetone positive. Patient will be placed on sliding scale. Serial H&H along with close glucose monitoring. Patient will be admitted with consult from Dr. Hernandez was seen patient in the past for abdominal pain. (Kash Lockhart) 31 male to the ER for evaluation of abdominal pain nausea vomiting. Dehydration , anemia, DKA, patient be admitted for close and intense monitoring about 3, serial electrolytes and IV resuscitation. We'll also recheck patient's hemoglobin (Dimitrios Colmenares) - Lab Data Lab Results 07/29/16 07/29/16 07/29/16 Range/Units 08:45 08:45 08:45 WBC 24.2 H (3.8-10.6) k/uL RBC 2.90 L (4.30-5.90) m/uL Hgb 8.8 L D (13.0-17.5) gm/dL Hct 27.2 L (39.0-53.0) % MCV 93.6 (80.0-100.0) fL MCH 30.3 (25.0-35.0) pg MCHC 32.3 (31.0-37.0) g/dL RDW 13.6 (11.5-15.5) % Plt Count 495 H (150-450) k/uL Neutrophils % 88 % Lymphocytes % 4 % Monocytes % 6 % Eosinophils % 0 % Basophils % 0 % Neutrophils # 21.3 H (1.3-7.7) k/uL Lymphocytes # 1.1 (1.0-4.8) k/uL Monocytes # 1.6 H (0-1.0) k/uL Eosinophils # 0.0 (0-0.7) k/uL Basophils # 0.0 (0-0.2) k/uL Sodium 132 L (137-145) mmol/L Potassium 4.3 (3.5-5.1) mmol/L Chloride 88 L (98-107) mmol/L Carbon Dioxide 21 L (22-30) mmol/L Anion Gap 23 mmol/L BUN 52 H (9-20) mg/dL Creatinine 3.97 H (0.66-1.25) mg/dL Est GFR (MDRD) Af Amer 21 (>60 ml/min/1.73 sqM) Est GFR (MDRD) Non-Af 18 (>60 ml/min/1.73 sqM) Glucose 253 H (74-99) mg/dL POC Glucose (mg/dL) (75-99) mg/dL POC Glu Cuff Cutter ID Calcium 7.5 L (8.4-10.2) mg/dL Total Bilirubin 0.9 (0.2-1.3) mg/dL AST 30 (17-59) U/L ALT 27 (21-72) U/L Alkaline Phosphatase 116 (38-126) U/L Troponin I 0.014 (0.000-0.034) ng/mL Total Protein 6.4 (6.3-8.2) g/dL Albumin 3.2 L (3.5-5.0) g/dL Amylase <30 L (30-110) U/L Lipase 62 (23-300) U/L Acetone, Qual Positive (Negative) 07/29/16 07/29/16 Range/Units 08:52 10:26 WBC (3.8-10.6) k/uL RBC (4.30-5.90) m/uL Hgb (13.0-17.5) gm/dL Hct (39.0-53.0) % MCV (80.0-100.0) fL MCH (25.0-35.0) pg MCHC (31.0-37.0) g/dL RDW (11.5-15.5) % Plt Count (150-450) k/uL Neutrophils % % Lymphocytes % % Monocytes % % Eosinophils % % Basophils % % Neutrophils # (1.3-7.7) k/uL Lymphocytes # (1.0-4.8) k/uL Monocytes # (0-1.0) k/uL Eosinophils # (0-0.7) k/uL Basophils # (0-0.2) k/uL Sodium (137-145) mmol/L Potassium (3.5-5.1) mmol/L Chloride (98-107) mmol/L Carbon Dioxide (22-30) mmol/L Anion Gap mmol/L BUN (9-20) mg/dL Creatinine (0.66-1.25) mg/dL Est GFR (MDRD) Af Amer (>60 ml/min/1.73 sqM) Est GFR (MDRD) Non-Af (>60 ml/min/1.73 sqM) Glucose (74-99) mg/dL POC Glucose (mg/dL) 277 H 226 H (75-99) mg/dL POC Glu Cuff Cutter Angie Simon Autumn Calcium (8.4-10.2) mg/dL Total Bilirubin (0.2-1.3) mg/dL AST (17-59) U/L ALT (21-72) U/L Alkaline Phosphatase (38-126) U/L Troponin I (0.000-0.034) ng/mL Total Protein (6.3-8.2) g/dL Albumin (3.5-5.0) g/dL Amylase (30-110) U/L Lipase (23-300) U/L Acetone, Qual (Negative) Critical Care Time Critical Care Time: Yes Total Critical Care Time: 31 <Dimitrios Colmenares - Last Filed: 07/29/16 10:55> Disposition Time of Disposition: 10:40 <Kash Lockhart - Last Filed: 07/29/16 10:46> <Dimitrios Colmenares - Last Filed: 07/29/16 10:55> Clinical Impression: Anemia, Acute renal failure, Hyperglycemia, Leukocytosis, Nausea & vomiting, Abdominal pain Disposition: ADMITTED IP TO THIS HOSP Condition: Serious Referrals: Luke Rosado DO [Primary Care Provider] - 1-2 days
[2016-07-29 09:10] LABS: Basophils % (A) 0 %; CHCM 32.2; Eosinophils % (A) 0 %; HCT 27.2 % (39.0-53.0); HDW 2.96; Luc # (Auto) 0.29; Luc % (Auto) 1; Lymphocytes # (A) 1.1 k/uL (1.0-4.8); Lymphocytes % (A) 4 %; MCH 30.3 pg (25.0-35.0); MCHC 32.3 g/dL (31.0-37.0); MCV 93.6 fL (80.0-100.0); Mean Platelet Volume 8.6; Monocytes # (A) 1.6 k/uL (0-1.0); Monocytes % (A) 6 %; Neutrophils # (A) 21.3 k/uL (1.3-7.7); Neutrophils % (A) 88 %; RDW 13.6 % (11.5-15.5); WBC 24.2 k/uL (3.8-10.6); WBC (Perox) 25.59
[2016-07-29 09:13] LABS: HGB 8.8 gm/dL (13.0-17.5)
[2016-07-29 09:22] LABS: ALT 27 U/L (21-72); AST 30 U/L (17-59); Alkaline Phosphatase 116 U/L (38-126); Amylase <30 U/L (30-110); Anion Gap 23 mmol/L; Blood Urea Nitrogen 52 mg/dL (9-20); Calcium 7.5 mg/dL (8.4-10.2); Carbon Dioxide 21 mmol/L (22-30); Chloride 88 mmol/L (98-107); Glucose 253 mg/dL (74-99); Non-African American GFR(MDRD) 18 (>60 ml/min/1.73 sqM); Potassium 4.3 mmol/L (3.5-5.1); Sodium 132 mmol/L (137-145); Total Bilirubin 0.9 mg/dL (0.2-1.3); Total Protein 6.4 g/dL (6.3-8.2)
[2016-07-29 10:28] LABS: Glucose,Whole Blood 226 mg/dL (75-99)
[2016-07-29] MEDS: SODIUM CHLORIDE 0.9% 1,000 ML IV SCH ×2 (10:40→16:12)
[2016-07-29] MEDS ORDERED: NALOXONE 0.4 MG/ML 1 ML VIAL IV PRN (10:42)
--- NOTE | 2016-07-29 12:24 | XR ---
Abdomen HISTORY: Pain Frontal view of the abdomen on 2 images correlated to prior abdomen 19 July 2016 No significant interval change IMPRESSION: Nonspecific bowel gas pattern
[2016-07-29 12:59] LABS: Glucose,Whole Blood 119 mg/dL (75-99)
[2016-07-29] MEDS: INSULIN LISPRO (humaLOG) 300 UNIT/3 ML VIAL SQ SCH ×3 (13:04→22:35)
--- NOTE | 2016-07-29 13:25 | P.GSCN ---
History of Present Illness Consult date: 07/29/16 Reason for Consult: Abdominal pain History of present illness: Thank you very much for asking us to see Mr. Moscoso. I'm seeing him in Dr. Hernandez' s absence. The patient is a 31-year-old white male who has had several admissions for diabetic ketoacidosis abdominal pain and pancreatitis, etc. He was just discharged from the hospital about 3-4 days ago. He states his abdominal pain got worse the early hours of this morning associated with nausea and vomiting. No change in his bowel habits. No definite fever or chills. He was brought to the emergency room. Was found to have hypoglycemia. Also leukocytosis. Was admitted for further management. He did have a laparoscopic cholecystectomy in the past. Past history. Diabetes mellitus on insulin. History of pancreatitis. 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 Chronic renal insufficiency. Hypertension. Lap jose g in general surgery in the past. Social history. Positive for ethanol abuse used to drink up to 2.2 whiskey a day states he quit the more than a week ago. Denies tobacco abuse. He is independent and lives alone. Systems review as above. No chest pain. Feels so weak and lethargic and dizzy. No cough or hemoptysis. No constipation or diarrhea. No urinary symptoms. On examination patient is somewhat sleepy and lethargic but does answer questions appropriately. Temperature is normal at 97.7. Vitals are normal. Hydration borderline to mild to moderately dehydrated. Slightly pale. Head and neck otherwise normal. Heart regular rhythm no murmurs. Lungs are clear. Abdomen is rounded tediously tender with some voluntary guarding but no rebound. Most of the tenderness is on the left side. No mass or organomegaly or hernias noted. Hypoactive bowel sounds. AIX SYSTEM ADMINISTRATOR grossly intact. Generally lethargic. No focal deficits. Laboratory studies were noted. WBC elevated to 24,000. BUN/creatinine elevated. LFTs mildly elevated. Anemic. Amylase and lipase normal. Urinalysis pending. Abdominal x-rays show a nonspecific bowel gas pattern. No free air. Impression suspect abdominal pain secondary to diabetic ketoacidosis. No evidence of pancreatitis although his pancreas may be depleted enough to not produce any amylase and lipase. The surgical abdomen at this time. History of hypertension. History of pancreatitis. History of ethanol abuse. Anxiety disorder. Recommendation. Continued medical management. IV fluids. Consider IV antibiotics. CT of the abdomen and pelvis when renal function and hydration improved. We'll monitor closely with you. Past Medical History Past Medical History: Diabetes Mellitus, GERD/Reflux, Hyperlipidemia, Hypertension Additional Past Medical History / Comment(s): Pt recently admitted to [facility] on with acute pancreatitis, acute alcohol hepatitis, acute renal failure. Other hx: pancreatitis, pt states recently worked up for probable diabetes. History of Any Multi-Drug Resistant Organisms: None Reported Past Surgical History: Cholecystectomy Additional Past Surgical History / Comment(s): Jaw surgery as child, wisdom teeth extraction. Past Anesthesia/Blood Transfusion Reactions: No Reported Reaction Past Psychological History: Anxiety, Depression Additional Psychological History / Comment(s): Pt lives alone. He is in the [employer]. He states he is on Celexa for his general anxiety disorder and that it is working well. He is independent. Smoking Status: Never smoker Past Alcohol Use History: None Reported Additional Past Alcohol Use History / Comment(s): Pt states he was drinking a pint or 2 of whiskey a day. He states he last drank 2 weeks ago. Past Drug Use History: None Reported - Past Family History Father Family Medical History: No Reported History, Diabetes Mellitus Mother Family Medical History: No Reported History Additional Family Medical History / Comment(s): Mother is healthy Medications and Allergies Home Medications Medication Instructions Recorded Confirmed Type Citalopram Hydrobromide [CeleXA] 20 mg PO HS 02/05/16 07/29/16 History traZODone HCL 50 mg PO HS PRN 05/08/16 07/29/16 History Baclofen [Lioresal] 5 mg PO TID PRN 07/08/16 07/29/16 History Thiamine [Vitamin B-1] 100 mg PO DAILY 07/09/16 07/29/16 History HYDROcodone/APAP 5-325MG [[place] 1 tab PO Q6HR PRN 07/19/16 07/29/16 History 5-325] Ibuprofen [Motrin] 600 mg PO Q6HR PRN 07/29/16 07/29/16 History Allergies Allergy/AdvReac Type Severity Reaction Status Date / Time Penicillins Allergy Rash/Hives Verified 07/29/16 12:16 Surgical - Exam Vital Signs Temp Pulse Resp BP Pulse Ox 97.7 F 97 18 126/64 100 07/29/16 08:26 07/29/16 08:26 07/29/16 08:26 07/29/16 08:26 07/29/16 08:26 Results - Labs 07/29/16 08:45 07/29/16 08:45 Abnormal Lab Results - Last 24 Hours (Table) 07/29/16 Range/Units 12:57 POC Glucose (mg/dL) 119 H (75-99) mg/dL
[2016-07-29] MEDS: HYDROmorphone 1 MG/ML 1 ML SYRINGE IV PRN (13:27)
[2016-07-29] MEDS: METOCLOPRAMIDE 5 MG/ML 2 ML VIAL IVP SCH ×2 (13:28→17:58)
[2016-07-29 13:40] LABS: Phosphorous 5.3 mg/dL (2.5-4.5)
[2016-07-29 13:57] LABS: Hemoglobin A1C 7.6 % (4.2-6.1)
[2016-07-29] MEDS ORDERED: traZODone HCL 50 MG TAB PO PRN (14:43)
[2016-07-29] MEDS ORDERED: BACLOFEN 10 MG TAB PO PRN (14:43)
[2016-07-29] MEDS ORDERED: LORazepam 1 MG TAB PO PRN (14:43)
[2016-07-29 15:20] LABS: Appearance,Urine Cloudy (Clear); Bacteria,Urine Rare /hpf; Bilirubin,Urine Negative (Negative); Glucose,Urine (UA) Trace (Negative); Ketones,Urine Negative (Negative); Leukocyte Esterase,Urine Negative (Negative); Mucus,Urine Rare /hpf; Nitrite,Urine Negative (Negative); PH, Urine 5.5 (5.0-8.0); Particle Count 3675; Protein,Urine 1+ (Negative); RBC,Urine 1 /hpf (0-5); Specific Gravity,Urine 1.014 (1.001-1.035); Squamous Epithelial Cell,Urine <1 /hpf (0-4); UA Billing (MACRO vs. MICRO) MICRO; Urobilinogen,Urine <2.0 mg/dL (<2.0); WBC,Urine 20 /hpf (0-5)
[2016-07-29 16:43] LABS: CH 30.2; CHCM 32.1; HDW 2.98; HGB 7.9 gm/dL (13.0-17.5); MCH 29.9 pg (25.0-35.0); MCHC 31.5 g/dL (31.0-37.0); MCV 94.7 fL (80.0-100.0); Mean Platelet Volume 10.1; RBC 2.64 m/uL (4.30-5.90); RDW 13.9 % (11.5-15.5); WBC 20.7 k/uL (3.8-10.6)
[2016-07-29 16:58] LABS: Glucose,Whole Blood 128 mg/dL (75-99)
[2016-07-29 17:17] LABS: Phosphorous 4.4 mg/dL (2.5-4.5); Potassium 3.7 mmol/L (3.5-5.1)
[2016-07-29] MEDS: CARVEDILOL 6.25 MG TAB PO SCH (17:58)
[2016-07-29] MEDS: HYDROcodone/APAP 5-325MG 1 EACH TAB PO PRN ×2 (17:58→22:01)
--- NOTE | 2016-07-29 19:50 | XR ---
EXAMINATION TYPE: XR chest 1V portable DATE OF EXAM: 07/29/2016 7:45 PM CLINICAL HISTORY: CHF per order. Abdominal pain for 3 weeks per patient. TECHNIQUE: Single AP portable frontal upright view of the chest is obtained. COMPARISON: Chest x-ray July 19, 2016. FINDINGS: Diminished inspiration is seen on current study. There is no focal air space opacity, pleur al effusion, or pneumothorax seen. The cardiac silhouette size is within normal limits. The osseou s structures are intact. Cholecystectomy clips are noted. IMPRESSION: No acute process.
[2016-07-29] MEDS: IOHEXOL 350 MG/ML 25 ML BOTTLE (ORAL USE) PO PRN ×2 (20:11→21:29)
[2016-07-29 20:49] LABS: CH 29.9; CHCM 31.6; HCT 23.9 % (39.0-53.0); HDW 2.97; HGB 7.6 gm/dL (13.0-17.5); Hypochromasia Slight; MCH 30.2 pg (25.0-35.0); MCHC 31.7 g/dL (31.0-37.0); MCV 95.1 fL (80.0-100.0); Mean Platelet Volume 8.9; RBC 2.52 m/uL (4.30-5.90); RDW 13.8 % (11.5-15.5)
[2016-07-29] MEDS ORDERED: CITALOPRAM HYDROBROMIDE 20 MG TAB PO SCH (21:00)
[2016-07-29] MEDS ORDERED: FAMOTIDINE 20 MG TAB PO SCH (21:00)
--- NOTE | 2016-07-29 21:58 | HP ---
DATE OF ADMISSION: 07/29/2016 CHIEF COMPLAINT: Abdominal pain and renal failure. HISTORY OF PRESENT ILLNESS: This 31 -year-old gentleman with past medical history of diabetes mellitus, type I, secondary pancreatitis and GERD, hypertension, hyperlipidemia, history of diabetic ketoacidosis, history of anxiety, depression, being followed by Dr. Rosado in the outpatient setting also had significant history of alcohol intake. The patient is drinking up to one pint of alcohol about 3 weeks and the patient was recently admitted with diabetic ketoacidosis. Reports that the patient felt better. The patient went home. The patient reports that patient is taking insulin but; however, the patient is complaining of abdominal pain and nausea and unable to keep anything down. The patient came to [facility] and admitted for further evaluation and treatment. There is no history of any fever, rigors. No history and headache, loss of consciousness or seizures. The patient is going to triple A. PAST MEDICAL HISTORY: History of diabetes, GERD, hypertension, hyperlipidemia, history of diabetic ketoacidosis, anxiety, depression, not otherwise specified. MEDICATIONS: 1. Trazodone 50 mg q.h.s. p.r.n. 2. Vitamin B1 100 mg p.o. daily. 3. Ativan 1 mg q.8 p.r.n. 4. Levemir 20 units subcu q.h.s. 5. Motrin 600 mg q.6 p.r.n. 6. Humalog 5 units a.c. t.i.d. 7. [place] 5 mg q.6. 8. Lasix 20 mg p.o. daily. 9. Pepcid 20 mg p.o. b.i.d. 10. Celexa 20 mg q.h.s. 11. Coreg 6.25 mg p.o. daily. 12. Lioresal 5 mg p.o. t.i.d. p.r.n. ALLERGIES: PENICILLIN. FAMILY HISTORY: History of diabetes in the family. SOCIAL HISTORY: The patient works in [employer]. No history of smoking. Otherwise history of alcohol as mentioned earlier. REVIEW OF SYSTEMS: ENT: No diminished hearing. No diminished vision. CARDIOVASCULAR: No angina or palpitations. RESPIRATORY: As mentioned earlier. GASTROINTESTINAL: As mentioned earlier. : No dysuria. Nervous system: No numbness or weakness. ALLERGIES/IMMUNOLOGY: No asthma or hayfever. MUSCULOSKELETAL: As mentioned earlier. HEMATOLOGY/ONCOLOGY: No history of anemia. ENDOCRINE: As mentioned earlier. CONSTITUTIONAL: As mentioned earlier. DERMATOLOGY: Negative. RHEUMATOLOGY: Negative. PSYCHIATRY: As mentioned earlier. PHYSICAL EXAMINATION: The patient is alert and oriented times three . Pulse 93, blood pressure 131/86. Respiratory rate 16, temperature 97.7, pulse ox 99% on room air. HEENT: Conjunctivae normal. Oral mucosa is dry. NECK: No jugular venous distention. No carotid bruit. No lymph node enlargement. CARDIOVASCULAR: S1, S2 muffled. Ejection systolic murmur. No S3. No S4. RESPIRATORY: Breath sounds diminished at the bases. No rhonchi. No crackles. ABDOMEN: Soft, mild diffuse distention present. No guarding or rigidity. No mass palpable. No ascites. LEGS: No edema. No swelling. Nervous system: Higher function as mentioned. Moves all 4 limbs. No focal deficits. LYMPHATICS: No lymph nodes palpable in the neck, axillae or groin. SKIN: No ulcer, rash or bleeding. LABS: WBC 20.7, hemoglobin is 7.9. Otherwise, creatinine is 2.60. UA noted. Acetone is positive and CO2 21. The planus KUB shows nonspecific bowel gas pattern. ASSESSMENT: 1. Intractable nausea, to rule out the possibility of acute gastritis. 2. Acute renal failure possibly prerenal dehydration. 3. Acute diabetic ketoacidosis. 4. History of recent acute diabetic ketoacidosis. 5. 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 6. History of diabetes type 1. 7. History of gastroesophageal reflux disease. 8. Hypertension. 9. Hyperlipidemia. 10. History of ETOH. 11. History of alcoholic pancreatitis. 12. Hyponatremia. 13. Anemia, normocytic of chronic disease. 14. Increased WBC, rule out sepsis. 15. ( ), depression, not otherwise specified. 16. History of wisdom tooth extraction. 17. FULL CODE. RECOMMENDATIONS AND DISCUSSION: This 31-year-old gentleman who presented with multiple complex medical issues, we will monitor the patient closely, continue the current medications, continue symptomatic treatment. Otherwise, at this time I recommend empiric antibiotics and otherwise monitor blood sugars closely. Accu-Cheks a.c. and at bedtime and I would also recommend CAT scan of the abdomen and pelvis, surgical evaluation appreciated. Guarded prognosis because of multiple complex medical issues. Further recommendations to follow. A copy of dictation forwarded to Dr. Rosado who is the primary care physician. DUYEN
--- NOTE | 2016-07-29 22:11 | CT ---
"EXAMINATION TYPE: CT abdomen pelvis wo con DATE OF EXAM: 07/29/2016 9:57 PM HISTORY: Abd distension, constipation. CT DLP: 745.20 mGycm. Automated Exposure Control for Dose Reduction was Utilized. TECHNIQUE: CT scan of the abdomen and pelvis is performed with oral but without IV contrast. COMPARISON: CT abdomen and pelvis September 29, 2015 FINDINGS: Within the limitations of a non-contrast study, the following observations are made. LUNG BASES: No significant abnormality is appreciated. LIVER/GB: Cholecystectomy clips are now present. There is new 2.8 cm low dense lesion in the caudate lobe on axial image 21 of uncertain etiology. PANCREAS: Pancreas not well imaged on this exam due to noncontrast study and adjacent fluid collectio n. SPLEEN: No significant abnormality is seen. ADRENALS: Slight thickening to left adrenal gland may reflect hyperplasia. KIDNEYS: No significant abnormality is seen. BOWEL: Oral contrast reaches level of the splenic flexure. There is no suspicious small or large oneil l dilatation seen. GENITAL ORGANS: No significant abnormality is seen. LYMPH NODES: No greater than 1cm abdominal or pelvic lymph nodes are appreciated. OSSEOUS STRUCTURES: No significant abnormality is seen. OTHER: In the left upper to mid abdomen there is heterogeneous large ill-defined fluid collection reyna t has hyperdense components with significant local mass effect on the stomach as well as bowel loops at this level. There are additional areas of ill-defined fluid scattered throughout the abdomen and p raj as well as more focal thin-walled fluid not layering dependently in the lower abdomen for refer ence axial image 62. There is moderate amount of free fluid in the pelvis that has Hounsfield units g reater than simple fluid on axial image 78 and blood product needs to BE considered, active hemorrha ge is in differential. IMPRESSION: Markedly abnormal study with moderate to large focal heterogeneous fluid collection in th e left upper to midabdomen with local mass effect, blood product and active hemorrhage needs to BE co nsidered. Strict clinical correlation advised. Nonsimple fluid scattered throughout the abdomen and p raj is noted, suspect additional hemorrhage in the pelvis. New liver lesion uncertain etiology. Hem orrhagic severe acute hemorrhagic pancreatitis (or acute pancreatitis eroding into arterial vessels)w ould need to be considered in a younger patient. Critical results communicated to patient's nurse at time of dictation. A Neeses message has been communicated to Elizabet Kathleen MD via the [employer] | Critical Result s ystem on 07/29/2016 10:09 PM, Message ID [id number]."
[2016-07-29 22:27] LABS: Glucose,Whole Blood 143 mg/dL (75-99)
[2016-07-29 23:11] LABS: Glucose,Whole Blood 147 mg/dL (75-99)
[2016-07-29] MEDS: DOCUSATE 100 MG CAP PO SCH (23:49)
[2016-07-30] MEDS: SODIUM CHLORIDE 0.9% 1,000 ML IV SCH ×5 (00:11→17:06)
[2016-07-30] MEDS: METOCLOPRAMIDE 5 MG/ML 2 ML VIAL IVP SCH ×4 (00:11→17:11)
[2016-07-30] MEDS: HYDROmorphone 1 MG/ML 1 ML SYRINGE IV PRN ×5 (00:59→15:31)
[2016-07-30 08:31] LABS: Basophils % (A) 0 %; CH 30.5; CHCM 32.6; Eosinophils % (A) 0 %; HCT 29.5 % (39.0-53.0); HDW 3.74; Hypochromasia Slight; Luc # (Auto) 0.22; Luc % (Auto) 2; Lymphocytes # (A) 1.5 k/uL (1.0-4.8); Lymphocytes % (A) 11 %; MCH 29.9 pg (25.0-35.0); MCHC 31.8 g/dL (31.0-37.0); MCV 94.3 fL (80.0-100.0); Monocytes # (A) 0.9 k/uL (0-1.0); Monocytes % (A) 6 %; Neutrophils # (A) 11.5 k/uL (1.3-7.7); Neutrophils % (A) 81 %; Poikilocytosis Slight; RBC 3.12 m/uL (4.30-5.90); RDW 14.4 % (11.5-15.5); WBC 14.2 k/uL (3.8-10.6); WBC (Perox) 14.58
[2016-07-30 08:38] LABS: Anion Gap 19 mmol/L; Blood Urea Nitrogen 27 mg/dL (9-20); Calcium 7.2 mg/dL (8.4-10.2); Carbon Dioxide 16 mmol/L (22-30); Chloride 104 mmol/L (98-107); Cholesterol 114 mg/dL (<200); Glucose 159 mg/dL (74-99); HDL Cholesterol 30 mg/dL (40-60); Magnesium 1.9 mg/dL (1.6-2.3); Non-African American GFR(MDRD) >60 (>60 ml/min/1.73 sqM); Phosphorous 2.6 mg/dL (2.5-4.5); Potassium 3.6 mmol/L (3.5-5.1); Sodium 139 mmol/L (137-145); Triglycerides 178 mg/dL (<150)
[2016-07-30 08:53] LABS: HGB 9.4 gm/dL (13.0-17.5)
[2016-07-30] MEDS ORDERED: THIAMINE 100 MG TAB PO SCH (09:00)
[2016-07-30] MEDS ORDERED: PANTOPRAZOLE 40 MG/10 ML VIAL IV SCH (09:00)
[2016-07-30] MEDS ORDERED: Magnesium Replacement Protocol 1 EACH MISC MISCELLANE PRN ×2 (09:07→09:09)
[2016-07-30] MEDS ORDERED: Potassium Replacement Protocol 1 EACH MISC MISCELLANE PRN (09:07)
[2016-07-30 09:19] LABS: Glucose,Whole Blood 172 mg/dL (75-99)
[2016-07-30] MEDS: CARVEDILOL 6.25 MG TAB PO SCH ×2 (09:20→16:58)
[2016-07-30 09:34] VITALS: BMI 26.7
[2016-07-30] MEDS: INSULIN LISPRO (humaLOG) 300 UNIT/3 ML VIAL SQ SCH ×3 (09:34→16:58)
[2016-07-30] MEDS: DOCUSATE 100 MG CAP PO SCH (09:41)
[2016-07-30] MEDS: POTASSIUM CHLORIDE 10 MEQ, LIDOCAINE 2% INJ 10 MG in SODIUM CHLORIDE 0.9% 100 ML IV SCH ×2 (10:34→10:45)
[2016-07-30] MEDS: MAGNESIUM SULFATE-D5W PMX 1 GM in DEXTROSE/WATER 1 100ML.BAG IVPB SCH ×2 (11:38→15:13)
[2016-07-30 11:40] LABS: Glucose,Whole Blood 150 mg/dL (75-99)
[2016-07-30 12:23] LABS: INR 1.7 (<1.1); Partial Thromboplastin Time 30.9 sec (22.0-30.0); Prothrombin Time 16.3 sec (9.0-12.0)
[2016-07-30 14:30] LABS: CHCM 32.1; HCT 30.6 % (39.0-53.0); HDW 3.91; HGB 9.8 gm/dL (13.0-17.5); Hypochromasia Slight; MCH 30.2 pg (25.0-35.0); MCHC 32.1 g/dL (31.0-37.0); MCV 94.1 fL (80.0-100.0); Mean Platelet Volume 7.8; Poikilocytosis Slight; RBC 3.26 m/uL (4.30-5.90); RDW 14.4 % (11.5-15.5); WBC 14.6 k/uL (3.8-10.6)
--- NOTE | 2016-07-30 15:27 | P.PN ---
Progress Note - Text The patient is fairly stable. He's awake alert should not. States he feels a lot better did receive analgesia several times through the night. His computed tomography scan was reviewed. It is consistent with most likely blood in the peritoneal cavity especially in the left upper quadrant area. I suspect she may have acute hemorrhagic pancreatitis. There is no history of trauma to explain the bleeding in his peritoneal cavity and his low hemoglobin which is a drop from his recent admission. He does feel a little hungry. On examination the patient is awake alert. Temperature is 90.9. Heart rate 102 minute. Blood pressure is normal. He is anicteric. Slightly pale. Did receive 2 units of packed cells during the night. When is much softer and less tender. Most of the tenderness is in the left side of the abdomen more so in the left upper quadrant. Some guarding but no rebound. CT as above. Impression suspect acute hemorrhagic pancreatitis with probably an acute bleed into the peritoneal cavity. History of ethanol abuse. Diabetes mellitus. Recommendation continued observation. We will let check his hemoglobin. Consider referral to a tertiary center for fear of another bleed which may be life-threatening.
--- NOTE | 2016-07-30 16:27 | P.CNPUL ---
History of Present Illness Consult date: 07/30/16 Chief complaint: Acute hyperglycemia History of present illness: 31-year-old male patient, known history of chronic alcoholism and recurrent pancreatitis along with history of diabetes mellitus hypertension and chronic anxiety and depression. The patient was admitted to the hospital on 2 separate occasions, in February 2016 and in July 2016 for acute pancreatitis and this was thought to be alcoholic in nature. During an earlier hospitalization the patient had further workup including an MRCP and a ERCP and the patient was not found to have any obstruction with inability recheck. Note that he is also post cholecystectomy. During this current admission, the patient was found to complain of increased abdominal pain, nausea and emesis. He reports that he was unable to keep anything down. For that reason he came into the hospital for further evaluation. He denies drinking for the past 3 weeks. Amylase and lipase were low and nonelevated. At that point, the patient was given IV fluids. The patient was given a CAT scan of the abdomen and pelvis and a CAT scan showed a heterogeneous large ill-defined fluid collection that has hyperdense components with significant local mass effect on the stomach as well as the bowel loops located in the left upper and mid abdomen. Additional areas of ill-defined fluid scattered areas were found throughout the abdomen and pelvis as well as focal thin-walled fluid not layering dependently in the lower abdomen was seen. There was moderate amount of free fluid in the pelvis. Based on the density of this fluid collection, etc. that this may be potentially a blood product and it raised the suspicion for an acute hemorrhage/ hemorrhagic complication of previous pancreatitis. Based on these findings, a surgical consultation was obtained and the patient was seen by Dr. Yadav and his input is appreciated. As suspected, no need for any surgical intervention at this point specially the patient was feeling well and stable. Hemoglobin had also been stable at 9.8. Clinically the patient's abdomen was slightly distended. It was nontender. He denies having any ongoing nausea or emesis this morning. No melanotic stools. No change in mental status. No signs of any delirium tremens. No signs of any hemodynamic instability. Renal function was stable with a creatinine of 1.1 and a white cell count was not elevated. Coagulation profile was done and the patient's PT was 16.3 with an INR of 1.7 and a PT of 13.9. Urine drug screen was positive for opiates. Review of Systems Further review of system was done and the positive findings are almost above in history of present illness Past Medical History Past Medical History: Diabetes Mellitus, GERD/Reflux, Hyperlipidemia, Hypertension Additional Past Medical History / Comment(s): Pt recently admitted to [facility] on with acute alcoholic pancreatitis, acute alcohol hepatitis, acute renal failure. Other hx: Alcoholism, diabetes mellitus, pancreatitis, hyperlipidemia, hypertension, GE reflux History of Any Multi-Drug Resistant Organisms: None Reported Past Surgical History: Cholecystectomy Additional Past Surgical History / Comment(s): Jaw surgery as child, wisdom teeth extraction. Past Anesthesia/Blood Transfusion Reactions: No Reported Reaction Past Psychological History: Anxiety, Depression Additional Psychological History / Comment(s): Pt lives alone. He is in the [employer]. He states he is on Celexa for his general anxiety disorder and that it is working well. He is independent. Smoking Status: Never smoker Past Alcohol Use History: None Reported Additional Past Alcohol Use History / Comment(s): Pt states he was drinking a pint or 2 of whiskey a day. He states he last drank 2 weeks ago. Past Drug Use History: None Reported - Past Family History Father Family Medical History: No Reported History, Diabetes Mellitus Mother Family Medical History: No Reported History Additional Family Medical History / Comment(s): Mother is healthy Medications and Allergies Home Medications Medication Instructions Recorded Confirmed Type Citalopram Hydrobromide [CeleXA] 20 mg PO HS 02/05/16 07/29/16 History traZODone HCL 50 mg PO HS PRN 05/08/16 07/29/16 History Baclofen [Lioresal] 5 mg PO TID PRN 07/08/16 07/29/16 History Thiamine [Vitamin B-1] 100 mg PO DAILY 07/09/16 07/29/16 History HYDROcodone/APAP 5-325MG [[place] 1 tab PO Q6HR PRN 07/19/16 07/29/16 History 5-325] Ibuprofen [Motrin] 600 mg PO Q6HR PRN 07/29/16 07/29/16 History Allergies Allergy/AdvReac Type Severity Reaction Status Date / Time Penicillins Allergy Rash/Hives Verified 07/29/16 12:16 Physical Exam Vitals: Vital Signs Temp Pulse Pulse Resp BP BP Pulse Ox 07/30/16 12:00 99.5 F 102 H 100 16 108/64 95 07/30/16 11:00 103 H 22 117/61 96 07/30/16 10:00 100 15 116/69 95 07/30/16 09:00 104 H 25 H 105/68 94 L 07/30/16 08:00 99.5 F 101 H 100 16 114/60 95 07/30/16 07:00 102 H 19 104/69 95 07/30/16 06:00 100 21 101/66 95 07/30/16 05:16 98.7 F 94 12 123/68 95 07/30/16 05:00 87 15 110/59 94 L 07/30/16 04:00 98.7 F 93 100 14 102/58 95 07/30/16 03:45 93 12 102/58 96 07/30/16 03:15 97.8 F 90 16 109/62 94 L 07/30/16 03:05 98 F 90 11 L 112/72 96 07/30/16 03:00 92 12 112/72 96 07/30/16 02:53 98 F 85 12 112/72 95 07/30/16 02:00 89 12 96/50 94 L 07/30/16 01:27 99.3 F 89 8 L 104/48 96 07/30/16 01:00 92 11 L 107/63 95 07/30/16 00:57 98.7 F 94 12 107/63 97 07/30/16 00:47 99.7 F H 89 8 L 107/63 97 07/30/16 00:30 95 23 99/61 95 07/30/16 00:00 98.5 F 93 11 L 108/60 94 L 07/29/16 23:30 91 99/59 95 07/29/16 23:14 92 99/59 97 07/29/16 22:31 98.8 F 100 20 111/57 97 Intake and Output 07/30/16 07/30/16 07/30/16 06:59 14:59 22:59 Intake Total 2840 1450 Output Total 650 2175 Balance 2190 -725 Intake: IV 1600 1000 Sodium Chloride 0.9% 1, 1600 1000 000 ml @ 200 mls/hr IV . Q5H [facility] Rx#:[id number] Intake, IV Titration 450 Amount Potassium Chloride 10 meq 200 Lidocaine 2% Inj 10 mg In Sodium Chloride 0.9% 100 ml @ 100 mls/hr IV Q1HR [facility] Rx#:[id number] Sodium Chloride 0.9% 1, 200 000 ml @ 200 mls/hr IV . Q5H [facility] Rx#:[id number] cefTRIAXone 1,000 mg In 50 Sodium Chloride 0.9% 50 ml @ 100 mls/hr IVPB Q24HR [facility] Rx#:[id number] Blood Product 1240 Rc As-1 Unit 310 [id number] Rc As-1 Unit 310 [id number] Output: Urine 650 2175 Other: Voiding Method Urinal Urinal # Voids 0 0 # Bowel Movements 0 0 Weight 82.2 kg 82.2 kg Patient Weight 07/31/16 06:59 Weight 82.2 kg Head exam was generally normal. There was no scleral icterus or corneal arcus. Mucous membranes were moist.Neck was supple and without jugular venous distension, thyromegaly, or carotid bruits. Carotids were easily palpable bilaterally. There was no adenopathy.Lungs were clear to auscultation and percussion, and with normal diaphragmatic excursion. No wheezes or rales were noted. Cardiac exam revealed the PMI to be normally situated and sized. The rhythm was regular and no extrasystoles were noted during several minutes of auscultation. The first and second heart sounds were normal and physiologic splitting of the second heart sound was noted. There were no murmurs, rubs, clicks, or gallops. Abdomen is slightly distended soft. There is no direct tenderness. No rebound tenderness. No guarding.Examination of the extremities revealed easily palpable radial, femoral and pedal pulses. There was no cyanosis , clubbing or edema. Results - Laboratory Findings CBC and BMP: 07/30/16 14:10 07/30/16 08:16 PT/INR, D-dimer PT 16.3 sec (9.0-12.0) H 07/30/16 11:30 INR 1.7 (<1.1) 07/30/16 11:30 Abnormal lab findings: Abnormal Labs 07/29/16 07/29/16 07/29/16 12:56 12:56 12:57 WBC RBC Hgb Hct Neutrophils # PT APTT Sodium 136 L Chloride 97 L Carbon Dioxide BUN 48 H Creatinine 2.95 H Glucose 104 H POC Glucose (mg/dL) 119 H Hemoglobin A1c 7.6 H Calcium Phosphorus 5.3 H Triglycerides HDL Cholesterol Urine Protein Urine Glucose (UA) Urine Blood Urine WBC Urine Bacteria Hyaline Casts Urine Mucus Urine Opiates Screen Crossmatch 07/29/16 07/29/16 07/29/16 14:10 16:35 16:35 WBC 20.7 H RBC 2.64 L Hgb 7.9 L Hct 25.0 L Neutrophils # PT APTT Sodium 135 L Chloride Carbon Dioxide 21 L BUN 45 H Creatinine 2.60 H Glucose 108 H POC Glucose (mg/dL) Hemoglobin A1c Calcium Phosphorus Triglycerides HDL Cholesterol Urine Protein 1+ H Urine Glucose (UA) Trace H Urine Blood Small H Urine WBC 20 H Urine Bacteria Rare H Hyaline Casts 4 H Urine Mucus Rare H Urine Opiates Screen Crossmatch 07/29/16 07/29/16 07/29/16 16:56 20:27 22:24 WBC 17.0 H RBC 2.52 L Hgb 7.6 L Hct 23.9 L Neutrophils # PT APTT Sodium Chloride Carbon Dioxide BUN Creatinine Glucose POC Glucose (mg/dL) 128 H 143 H Hemoglobin A1c Calcium Phosphorus Triglycerides HDL Cholesterol Urine Protein Urine Glucose (UA) Urine Blood Urine WBC Urine Bacteria Hyaline Casts Urine Mucus Urine Opiates Screen Crossmatch 07/29/16 07/29/16 07/30/16 23:08 23:20 08:16 WBC 14.2 H RBC 3.12 L Hgb 9.4 L D Hct 29.5 L Neutrophils # 11.5 H PT APTT Sodium Chloride Carbon Dioxide BUN Creatinine Glucose POC Glucose (mg/dL) 147 H Hemoglobin A1c Calcium Phosphorus Triglycerides HDL Cholesterol Urine Protein Urine Glucose (UA) Urine Blood Urine WBC Urine Bacteria Hyaline Casts Urine Mucus Urine Opiates Screen Crossmatch See Detail 07/30/16 07/30/16 07/30/16 08:16 09:17 11:30 WBC RBC Hgb Hct Neutrophils # PT 16.3 H APTT 30.9 H Sodium Chloride Carbon Dioxide 16 L BUN 27 H Creatinine Glucose 159 H POC Glucose (mg/dL) 172 H Hemoglobin A1c Calcium 7.2 L Phosphorus Triglycerides 178 H HDL Cholesterol 30 L Urine Protein Urine Glucose (UA) Urine Blood Urine WBC Urine Bacteria Hyaline Casts Urine Mucus Urine Opiates Screen Crossmatch 07/30/16 07/30/16 07/30/16 11:39 14:07 14:10 WBC 14.6 H RBC 3.26 L Hgb 9.8 L Hct 30.6 L Neutrophils # PT APTT Sodium Chloride Carbon Dioxide BUN Creatinine Glucose POC Glucose (mg/dL) 150 H Hemoglobin A1c Calcium Phosphorus Triglycerides HDL Cholesterol Urine Protein Urine Glucose (UA) Urine Blood Urine WBC Urine Bacteria Hyaline Casts Urine Mucus Urine Opiates Screen Detected H Crossmatch - Diagnostic Findings Chest x-ray: image reviewed Assessment and Plan Plan: Assessment 1 abdominal pain with an abnormal heterogeneous large ill-defined fluid collection causing mass effect on the stomach and the bowel loops and raising the suspicion for a hemorrhagic complication of the previous pancreatitis. Surgical consultation was obtained. Hemoglobin is stable. Coagulation profile is stable for now. I would seriously doubt the possibility of a abscess/ necrotizing pancreatitis complications at this point. 2 alcoholism 3 recurrent pancreatitis 4 diabetes mellitus 5 hyperlipidemia 6 hypertension 7 chronic anemia 8 anion gap metabolic acidosis, awaiting lactic acid levels 9 acute kidney injury, improved with fluid resuscitation and creatinine is down to 1.1 from a baseline of 2.6 Plan Continue fluid resuscitation, advance diet as tolerated if cleared by general surgery check a lactic acid level, monitor the hemoglobin, repeat the CAT scan of the abdomen and pelvis with contrast the next 24-48 hours once the renal function stabilizes. The patient will be transferred to a telemetry unit as condition is stable for now. Meanwhile, the patient will be placed on Pepcid 20 mg by mouth twice a day, Dilaudid for pain control, and the rest of his outpatient medication will be resumed including trazodone 50 mg at bedtime baclofen 5 mg by mouth 3 times a day when necessary and Coreg 6.25 mg by mouth twice a day.
--- NOTE | 2016-07-30 16:30 | CONS ---
DATE OF CONSULTATION: 07/30/2016 REASON FOR CONSULTATION: Renal failure. HISTORY OF PRESENT ILLNESS: Patient is a 31-year-old white male who was admitted to the hospital with worsening abdominal pain, nausea and vomiting. He was very weak. He states he has not had a bowel movement for about a week. Patient's serum creatinine was 3.97 mg/dL on initial admission. He has been maintained on Unasyn IV fluids and his creatinine is now down to 1.13. He denies any prior history of kidney diseases. He did admit to use of nonsteroidal anti-inflammatory agents for pain, mainly arthritic pain. His blood sugar was at 253 on initial admission. PAST MEDICAL HISTORY: Type 1 diabetes, gastroesophageal reflux disease, hypertension, history of DKA, depression, anxiety. Medications prior to admission included: 1. Trazodone. 2. Vitamin B. 3. Insulin. 4. Celexa. 5. Motrin. 6. Pepcid. 7. Lasix. 8. [place]. 9. Coreg. ALLERGIES INCLUDE PENICILLIN. SOCIAL HISTORY: Negative for smoking, drug abuse or alcohol abuse. REVIEW OF SYSTEMS: As per HPI. Other systems negative. On examination, he is comfortable, awake, not in any acute distress. Blood pressure is 117/61, heart rate 103 per minute. The patient is afebrile. Examination of the heart S1 and S2. Examination of the lungs: Bilateral breath sounds are heard. ABDOMEN: Soft, nontender. Examination of lower extremities shows no evidence of edema. [employer] exam is grossly intact. Labs show sodium 139, potassium 3.6. CO2 is 16, BUN 27, serum creatinine 1.13, hemoglobin 9.8 g/dL. ASSESSMENT: 1. Acute kidney injury, prerenal, currently significantly improved. 2. Abdominal pain, status post abdominal CT which shows a large fluid collection, which is hyperdense. Patient is being followed by surgery and has been evaluated by surgery. 3. Type 1 diabetes with previous history of diabetic ketoacidosis. 4. Rule out chronic kidney disease. Patient's UA did show evidence of 1+ protein; however, there were WBCs noted as well. Urine culture has been sent out it. It is currently pending. PLAN: Continue IV fluids. Follow up on surgical recommendations.
[2016-07-30 16:47] LABS: Glucose,Whole Blood 199 mg/dL (75-99)
--- NOTE | 2016-07-30 16:48 | DS ---
DATE OF ADMISSION: 07/29/2016 DATE OF DISCHARGE: FINAL DIAGNOSES: 1. Abdominal pain, nausea, possibly hemorrhage pancreatitis. 2. Rule out acute pancreatitis arterial vessel with hemorrhage, severe acute hemorrhage with pancreatitis. 3. Acute renal failure, possible prerenal with dehydration present on admission improved. 4. Acute diabetic ketoacidosis present on admission improved. 5. History of recent acute diabetic ketoacidosis. 6. History of ETOH. 7. 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 8. 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 9. History gastroesophageal reflux disease. 10. Hypertension. 11. Hyperlipidemia. 12. Mild coagulopathy. 13. History of colic pancreatitis. 14. Hyponatremia. 15. Anemia, normocytic, anemia. 16. Increased WBC rule out sepsis. 17. Depression, not otherwise specified. 18. FULL CODE. DISCHARGE DISPOSITION: The patient will be discharged in stable condition with guarded prognosis. The patient will be transferred to [facility]. Total time taken 35 minutes. HISTORY OF PRESENT ILLNESS: This 31 -year-old gentleman with a past medical history of multiple medical problems being followed by Dr. Luke Rosado in the outpatient setting presented with complaints of abdominal pain, nausea. The patient being monitored closely. The CAT scan of the abdomen shows significant mass lesion in the pancreatic head, possibility of hemorrhagic pancreatitis or even acute pancreatitis with eroding into the artery was also considered. Discussed the case with surgical treatment at [facility] and the patient is being transferred to [facility] for further evaluation and treatment. The patient was monitored in ICU overnight. Hemoglobin is 7.6, currently 9.8 Vital signs stable. Vital as follows: Pulse 102, blood pressure 108/64, respiratory rate 16, temperature 99.4, pulse ox 95% on room air. WBC 14.6. The patient creatinine 1.13. The patient will be transferred in stable condition with guarded prognosis. Current medications are as follows: 1. [place] 5 mg q.4 p.r.n. 2. Lioresal 5 mg t.i.d. p.r.n. 3. Coreg 6.25 mg b.i.d. 4. Rocephin 1 gram IV daily. 5. Celexa 20 mg at bedtime. 6. Colace 100 mg p.o. b.i.d. 7. Pepcid 20 mg p.o. b.i.d. 8. Dilaudid 1 mg q.3 p.r.n. 9. Ativan 1 mg q.8 p.r.n. 10. Reglan 10 mg q.6 p.r.n. 11. Replacement protocol. 12. IV fluids 200 mL per hour. 13. Vitamin B1 100 mg p.o. daily. 14. Desyrel 50 mg q.h.s. p.r.n. MTDD
[2016-07-30 18:20] VITALS: BP 109/66; PULSE 98; RESP 18; TEMP 97.8
[2016-07-30] MEDS ORDERED: FAMOTIDINE 20 MG TAB PO SCH ×2 (21:00)
== END 2016-07-30 18:46 | disposition short-term general hospital (02) | DRG 438 ==
LOC: EC 08:24 → 4MS4W 11:11 → 6ICU 23:13 → 6SEL 07-30 12:15
PROVIDERS: ADMIT Hospitalist; ATTEND Hospitalist
DX: K85.90 Acute pancreatitis without necrosis or infection, unspecified (principal); E10.10 Type 1 diabetes mellitus with ketoacidosis without coma; N17.9 Acute kidney failure, unspecified; E87.1 Hypo-osmolality and hyponatremia; K86.89 Other specified diseases of pancreas; E10.22 Type 1 diabetes mellitus with diabetic chronic kidney disease; K70.10 Alcoholic hepatitis without ascites; K86.1 Other chronic pancreatitis; K21.9 Gastro-esophageal reflux disease without esophagitis; E78.5 Hyperlipidemia, unspecified; F32.9 Major depressive disorder, single episode, unspecified; E86.0 Dehydration; R79.1 Abnormal coagulation profile; N18.9 Chronic kidney disease, unspecified; I12.9 Hypertensive chronic kidney disease with stage 1 through stage 4 chronic kidney disease, or unspecified chronic kidney disease; F41.1 Generalized anxiety disorder; D63.8 Anemia in other chronic diseases classified elsewhere; F10.20 Alcohol dependence, uncomplicated; Z88.0 Allergy status to penicillin; Z79.4 Long term (current) use of insulin; Z79.891 Long term (current) use of opiate analgesic; Z79.899 Other long term (current) drug therapy
CPT/HCPCS: 36415; 71010; 74000; 74176; 80048; 80051; 80053; 80061; 80306; 81001; 82009; 82150; 82565; 82947; 83036; 83605; 83690; 83735; 84100; 84484; 84520; 85025; 85027; 85610; 85730; 86850; 86900; 86901; 86920; 87040; 87086; 93005; 96361; 96374; 99291

== ENCOUNTER → 2017-07-15 | Outpatient (CLI) | payer OTHER ==
[2017-07-15 14:32] LABS: Blood Urea Nitrogen 18 mg/dL (9-20)
--- NOTE | 2017-07-15 16:19 | CT ---
EXAMINATION TYPE: CT abdomen pelvis w con DATE OF EXAM: 07/15/2017 COMPARISON: 05/31/2017 HISTORY: Follow-up pseudocyst drainage. CT DLP: 539 mGycm CONTRAST: CT scan of the abdomen and pelvis is performed with Oral Contrast and with IV Contrast, patient injec akiko with 100 mL of Omnipaque 300. FINDINGS: LUNG BASES-: No visible nodule. No infiltrate. LIVER/GB: Cholecystectomy clips identified. No space occupying hepatic lesion. Biliary tree is of normal caliber. PANCREAS: Pigtail catheter is noted adjacent to the greater gastric curvature. Large pseudocyst eddie cent to the stomach appears to been fully drained without significant residual. There is residual pse udocyst noted anterior to the left kidney and left psoas musculature measuring 8.5 cm in length by 2. 9 cm. Pancreatic atrophic changes. No new collections identified. SPLEEN: No splenic enlargement. No lesion seen. ADRENALS: No nodule. No thickening. KIDNEYS/BLADDER: No hydronephrosis. No nephrolithiasis. No distinct renal mass. Urinary bladder g rossly unremarkable. BOWEL: Normal appendix. Normal bowel caliber. No inflammation. GENITAL ORGANS: No gross abnormality. LYMPH NODES: No greater than 1cm abdominal or pelvic lymph nodes are appreciated. AORTA: No significant abnormality. OSSEOUS STRUCTURES: No significant abnormality is seen. OTHER: No significant additional abnormality is seen. IMPRESSION: 1. Dominant component of the patient's pancreatic pseudocyst has been drained with drainage catheter in place although there is small residual connecting component anterior to the left kidney and left p soas musculature. 2. Atrophic changes of the pancreas. 3. Mild hepatic steatosis. 4. Internal hernia is difficult to exclude.
== END | disposition home or self-care (01) ==
LOC: RADCTMAIN 13:30
PROVIDERS: ATTEND Surgery
DX: K86.89 Other specified diseases of pancreas (principal); K86.3 Pseudocyst of pancreas; K76.0 Fatty (change of) liver, not elsewhere classified
CPT/HCPCS: 82565; 84520; 74177; 36415; Q9967

== ENCOUNTER 2017-08-18 21:45 | Emergency (ER) | payer OTHER ==
[2017-08-18 21:52] VITALS: RESP 18
[2017-08-18] MEDS ORDERED: MORPHINE SULFATE 4 MG/ML SYRINGE IV STA (23:11)
[2017-08-18] MEDS ORDERED: SODIUM CHLORIDE 0.9% 1,000 ML IV STA (23:11)
[2017-08-18] MEDS ORDERED: ONDANSETRON 4 MG/2 ML VIAL IVP STA (23:11)
[2017-08-18] MEDS ORDERED: RX INFO: IV CONTRAST WAS GIVEN 1 EACH MISC MISCELLANE PRN (23:11)
[2017-08-18] MEDS ORDERED: ACETAMINOPHEN TAB 500 MG TAB PO STA (23:13)
[2017-08-18] MEDS ORDERED: cefTRIAXone IN SWFI 1,000 MG/10 ML SYRINGE IVP STA (23:13)
--- NOTE | 2017-08-18 23:59 | ED ---
Abdominal Pain HPI - General Chief Complaint: Abdominal Pain Stated Complaint: post op pain Time Seen by Provider: 08/18/17 22:50 Source: patient Mode of arrival: ambulatory Limitations: no limitations - History of Present Illness Initial Comments: Patient presents with Epigastric abdominal pain for the past 2 weeks. Patient states she has history of pancreatitis secondary to alcoholism. States she has not had a drink of ETOH in the past one year. Patient states last May he had pancreatic pseudocyst drained by physician at [facility]. Patient states he had pancreatic drain in until 2 weeks ago when it was removed. Since that time patient states she's been experiencing pain in the epigastric region. Patient febrile on arrival today. Patient denies fevers prior to arrival. Patient denies URI symptoms, shortness breath, cough, changes in bowel movements, changes in urination, N/V. Pt has h/o cholecystectomy - Related Data Home Medications Medication Instructions Recorded Confirmed Insulin Detemir [Levemir] 40 unit SQ HS 09/12/16 08/18/17 Fenofibrate Nanocrystallized 145 mg PO HS 03/21/17 08/18/17 [Tricor] INSULIN LISPRO (humaLOG) [humaLOG] See Protocol SQ AC-TID 03/21/17 08/18/17 Warfarin Sodium [Coumadin] 5 mg PO MOFR 03/21/17 08/18/17 Warfarin Sodium [Coumadin] 10 mg PO SUTUWETHSA 03/21/17 08/18/17 Citalopram Hydrobromide [CeleXA] 20 mg PO HS 06/01/17 08/18/17 LORazepam [Ativan] 1 mg PO BID PRN 07/05/17 08/18/17 Carvedilol [Coreg] 6.25 mg PO HS 08/18/17 08/18/17 Disulfiram 250 mg PO HS 08/18/17 08/18/17 Famotidine [Pepcid] 20 mg PO BID PRN 08/18/17 08/18/17 Folic Acid 1 mg PO HS 08/18/17 08/18/17 HYDROcodone/APAP 5-325MG [Gro[place] 1 - 2 tab PO Q6HR PRN 08/18/17 08/18/17 5-325] traZODone HCL 50 mg PO HS 08/18/17 08/18/17 Allergies Allergy/AdvReac Type Severity Reaction Status Date / Time Penicillins Allergy Rash/Hives Verified 08/18/17 23:10 Review of Systems ROS Statement: Those systems with pertinent positive or pertinent negative responses have been documented in the HPI. ROS Other: All systems not noted in ROS Statement are negative. Constitutional: Reports: fever. Denies: chills, weakness Eyes: Denies: vision change ENT: Denies: throat pain, congestion Respiratory: Denies: cough, dyspnea Cardiovascular: Denies: chest pain Endocrine: Denies: fatigue Gastrointestinal: Reports: abdominal pain. Denies: nausea, vomiting, diarrhea, constipation Genitourinary: Denies: urgency, dysuria, frequency, hematuria Musculoskeletal: Denies: back pain, joint swelling, arthralgia, myalgia Skin: Denies: rash, change in color Neurological: Denies: headache Past Medical History Past Medical History: Diabetes Mellitus, GERD/Reflux, Hyperlipidemia, Hypertension Additional Past Medical History / Comment(s): Pt recently admitted to [facility] on with acute alcoholic pancreatitis, acute alcohol hepatitis, acute renal failure. Other hx: Alcoholism, diabetes mellitus, pancreatitis, hyperlipidemia, hypertension, GE reflux History of Any Multi-Drug Resistant Organisms: None Reported Past Surgical History: Cholecystectomy Additional Past Surgical History / Comment(s): Jaw surgery as child, wisdom teeth extraction, Drainage of a pseudocyst on pancreas Past Anesthesia/Blood Transfusion Reactions: No Reported Reaction Past Psychological History: Anxiety, Depression Smoking Status: Former smoker Past Alcohol Use History: Heavy, Heavy Past Drug Use History: None Reported - Past Family History Father Family Medical History: No Reported History, Diabetes Mellitus Mother Family Medical History: No Reported History Additional Family Medical History / Comment(s): Mother is healthy General Exam - General Exam Comments Initial Comments: Sitting up in bed. No acute distress. Conversing normally. Calm, pleasant. Well-groomed well-dressed. Does not appear in pain. Well appearing. Nontoxic appearing. Limitations: no limitations General appearance: alert, in no apparent distress Head exam: Present: atraumatic, normocephalic Eye exam: Present: normal appearance, PERRL, EOMI ENT exam: Present: mucous membranes moist Neck exam: Present: normal inspection Respiratory exam: Present: normal lung sounds bilaterally. Absent: respiratory distress, wheezes, rales, rhonchi Cardiovascular Exam: Present: normal rhythm, tachycardia GI/Abdominal exam: Present: soft, tenderness (Mild tenderness around area of epigastric incision. Epigastric incision appears well-healed. No erythema or drainage. No fluctuance or abscesses appreciated. Abdomen soft nontender nondistended.). Absent: distended, guarding, rebound, rigid, normal bowel sounds Extremities exam: Present: other (No gross deformities) Neurological exam: Present: alert, oriented X3 Psychiatric exam: Present: normal affect, normal mood Skin exam: Present: warm, dry, intact, normal color. Absent: rash, erythema, petechiae Course Vital Signs 08/18/17 08/19/17 21:48 01:20 Temperature 101 F H 101.3 F H Pulse Rate 104 H 88 Respiratory 18 18 Rate Blood Pressure 123/67 138/74 O2 Sat by Pulse 97 100 Oximetry Medical Decision Making - Medical Decision Making Pt's surgeon Dr. Anil Bonner @ [facility] ([phone]). IV fluids, morphine, Zofran given for symptoms. Patient febrile tachycardic, sepsis protocol ordered, we'll give dose of Rocephin. Tylenol ordered. We'll obtain CT of the abdomen to evaluate for possible pancreatic pseudocyst versus pancreatic abscess. White blood cell count mildly elevated. Lipase 24. Lactic acid minimally elevated, is receiving IV fluids. Glucose elevated, patient takes insulin at home, 6 units insulin given along with IV fluids, no ketones in urine, no anion gap. 01:25 CT abdomen shows large elongated fluid collection along the course of the pancreas, 14 x 4 cm. 01:26 [facility] transfer team paged, plan to transfer patient for continuity of care with his surgeon for possible abscess around pancreas given fever and elevated white blood cell count. Versus recurrence of pancreatic pseudocyst. Patient and mother updated with all results and plan. Pain control at this time. Patient remains febrile, Toradol ordered. Spoke with 140 transfer transfer team, Dr. Adams accpets patient, we'll transfer at this time, requests transfer to ER CAT 2. In [facility] filled out and signed by patient. - Lab Data Result diagrams: 08/18/17 23:40 08/18/17 23:40 Lab Results 08/18/17 08/18/17 08/18/17 Range/Units 23:40 23:40 23:40 WBC 11.7 H (3.8-10.6) k/uL RBC 4.93 (4.30-5.90) m/uL Hgb 14.3 (13.0-17.5) gm/dL Hct 40.1 (39.0-53.0) % MCV 81.4 (80.0-100.0) fL MCH 29.0 (25.0-35.0) pg MCHC 35.6 (31.0-37.0) g/dL RDW 13.4 (11.5-15.5) % Plt Count 188 (150-450) k/uL Neutrophils % 76 % Lymphocytes % 14 % Monocytes % 8 % Eosinophils % 1 % Basophils % 0 % Neutrophils # 8.9 H (1.3-7.7) k/uL Lymphocytes # 1.6 (1.0-4.8) k/uL Monocytes # 0.9 (0-1.0) k/uL Eosinophils # 0.1 (0-0.7) k/uL Basophils # 0.0 (0-0.2) k/uL Sodium 136 L (137-145) mmol/L Potassium 4.3 (3.5-5.1) mmol/L Chloride 98 (98-107) mmol/L Carbon Dioxide 26 (22-30) mmol/L Anion Gap 12 mmol/L BUN 17 (9-20) mg/dL Creatinine 0.80 (0.66-1.25) mg/dL Est GFR (CKD-EPI)AfAm >90 (>60 ml/min/1.73 sqM) Est GFR (CKD-EPI)NonAf >90 (>60 ml/min/1.73 sqM) Glucose 349 H (74-99) mg/dL POC Glucose (mg/dL) (75-99) mg/dL POC Glu Chilling Hood Operator ID Plasma Lactic Acid Aleksandar 2.5 H* (0.7-2.0) mmol/L Calcium 9.7 (8.4-10.2) mg/dL Total Bilirubin 0.3 (0.2-1.3) mg/dL AST 18 (17-59) U/L ALT 38 (21-72) U/L Alkaline Phosphatase 132 H (38-126) U/L Total Protein 6.9 (6.3-8.2) g/dL Albumin 4.1 (3.5-5.0) g/dL Amylase 33 (30-110) U/L Lipase 24 (23-300) U/L Urine Color Urine Appearance (Clear) Urine pH (5.0-8.0) Ur Specific [place] (1.001-1.035) Urine Protein (Negative) Urine Glucose (UA) (Negative) Urine Ketones (Negative) Urine Blood (Negative) Urine Nitrite (Negative) Urine Bilirubin (Negative) Urine Urobilinogen (<2.0) mg/dL Ur Leukocyte Esterase (Negative) 08/19/17 08/19/17 Range/Units 00:05 00:15 WBC (3.8-10.6) k/uL RBC (4.30-5.90) m/uL Hgb (13.0-17.5) gm/dL Hct (39.0-53.0) % MCV (80.0-100.0) fL MCH (25.0-35.0) pg MCHC (31.0-37.0) g/dL RDW (11.5-15.5) % Plt Count (150-450) k/uL Neutrophils % % Lymphocytes % % Monocytes % % Eosinophils % % Basophils % % Neutrophils # (1.3-7.7) k/uL Lymphocytes # (1.0-4.8) k/uL Monocytes # (0-1.0) k/uL Eosinophils # (0-0.7) k/uL Basophils # (0-0.2) k/uL Sodium (137-145) mmol/L Potassium (3.5-5.1) mmol/L Chloride (98-107) mmol/L Carbon Dioxide (22-30) mmol/L Anion Gap mmol/L BUN (9-20) mg/dL Creatinine (0.66-1.25) mg/dL Est GFR (CKD-EPI)AfAm (>60 ml/min/1.73 sqM) Est GFR (CKD-EPI)NonAf (>60 ml/min/1.73 sqM) Glucose (74-99) mg/dL POC Glucose (mg/dL) 333 H (75-99) mg/dL POC Glu Chilling Hood Operator ID McDaid, Laura Plasma Lactic Acid Aleksandar (0.7-2.0) mmol/L Calcium (8.4-10.2) mg/dL Total Bilirubin (0.2-1.3) mg/dL AST (17-59) U/L ALT (21-72) U/L Alkaline Phosphatase (38-126) U/L Total Protein (6.3-8.2) g/dL Albumin (3.5-5.0) g/dL Amylase (30-110) U/L Lipase (23-300) U/L Urine Color Yellow Urine Appearance Clear (Clear) Urine pH 5.5 (5.0-8.0) Ur Specific [place] 1.030 (1.001-1.035) Urine Protein Negative (Negative) Urine Glucose (UA) 4+ H (Negative) Urine Ketones Negative (Negative) Urine Blood Negative (Negative) Urine Nitrite Negative (Negative) Urine Bilirubin Negative (Negative) Urine Urobilinogen <2.0 (<2.0) mg/dL Ur Leukocyte Esterase Negative (Negative) Disposition Clinical Impression: Pancreatic abscess Disposition: OTHER INSTITUTION NOT DEFINED Referrals: Luke Rosado DO [Primary Care Provider] - 1-2 days - Out of Hospital Transfer - Req. Specs Out of Hospital Transfer - Requested Specifics: Other Emergency Center ([facility])
[2017-08-19] LABS: Basophils % (A) 0 %; Eosinophils # (A) 0.1 k/uL (0-0.7); Eosinophils % (A) 1 %; HCT 40.1 % (39.0-53.0); HGB 14.3 gm/dL (13.0-17.5); Lymphocytes # (A) 1.6 k/uL (1.0-4.8); Lymphocytes % (A) 14 %; MCHC 35.6 g/dL (31.0-37.0); MCV 81.4 fL (80.0-100.0); Mean Platelet Volume 8.1; Monocytes # (A) 0.9 k/uL (0-1.0); Monocytes % (A) 8 %; Neutrophils # (A) 8.9 k/uL (1.3-7.7); Neutrophils % (A) 76 %; Platelet Count 188 k/uL (150-450); RBC 4.93 m/uL (4.30-5.90); RDW 13.4 % (11.5-15.5); WBC 11.7 k/uL (3.8-10.6)
[2017-08-19] MEDS: SODIUM CHLORIDE 0.9% 500 ML IV SCH ×4 (00:04→01:56)
[2017-08-19 00:07] LABS: Glucose,Whole Blood 333 mg/dL (75-99)
[2017-08-19 00:10] LABS: ALT 38 U/L (21-72); AST 18 U/L (17-59); Albumin 4.1 g/dL (3.5-5.0); Alkaline Phosphatase 132 U/L (38-126); Amylase 33 U/L (30-110); Anion Gap 12 mmol/L; Blood Urea Nitrogen 17 mg/dL (9-20); Calcium 9.7 mg/dL (8.4-10.2); Carbon Dioxide 26 mmol/L (22-30); Chloride 98 mmol/L (98-107); Glucose 349 mg/dL (74-99); Lipase 24 U/L (23-300); Potassium 4.3 mmol/L (3.5-5.1); Sodium 136 mmol/L (137-145); Total Bilirubin 0.3 mg/dL (0.2-1.3); Total Protein 6.9 g/dL (6.3-8.2)
[2017-08-19] MEDS ORDERED: INSULIN REGULAR 100 UNIT/ML VIAL SQ ONE (00:35)
[2017-08-19] MEDS ORDERED: FAMOTIDINE 20 MG/2 ML VIAL IV STA (00:49)
[2017-08-19 00:55] LABS: Appearance,Urine Clear (Clear); Bilirubin,Urine Negative (Negative); Blood,Urine Negative (Negative); Color,Urine Yellow; Glucose,Urine (UA) 4+ (Negative); Ketones,Urine Negative (Negative); Leukocyte Esterase,Urine Negative (Negative); Nitrite,Urine Negative (Negative); PH, Urine 5.5 (5.0-8.0); Protein,Urine Negative (Negative); Urobilinogen,Urine <2.0 mg/dL (<2.0)
--- NOTE | 2017-08-19 01:20 | CT ---
EXAMINATION TYPE: CT abdomen pelvis w con DATE OF EXAM: 08/19/2017 COMPARISON: 07/15/2017 HISTORY: Abd pain CT DLP: 587.50 mGycm Automated exposure control for dose reduction was used. TECHNIQUE: Helical acquisition of images was performed from the lung bases through the pelvis. CONTRAST: Performed without Oral Contrast and with IV Contrast, patient injected with 100 mL of Omnipaque 300. FINDINGS: The lung bases are clear of infiltrate. There is no pleural effusion. There is no pericardial effusio n. Heart size is normal. Liver shows no focal defect. There are clips from cholecystectomy. Spleen is large and measures 14 cm . Bile ducts are not dilated. The pancreas is apparently replaced by an elongated mixed density fluid collection. There are surgical clips at the gastric antrum. There is a 14 x 4 cm elongated fluid col lection along the body of the pancreas. There are small air fluid levels. There is been removal of th e drain in the region of the body and tail of the pancreas compared to old CT scan. There is no adrenal mass. Kidneys show satisfactory contrast opacification. There is no hydronephrosi s. There is no retroperitoneal adenopathy. There is no free fluid in the abdomen. Bladder distends sm oothly. There are some fluid-filled loops of small bowel in the lower abdomen. There are surgical cli ps at the anterior body of the stomach. I see no bony destructive process. IMPRESSION: LARGE ELONGATED FLUID COLLECTION ALONG THE COURSE OF THE PANCREAS CONSISTENT WITH A LARGE PSEUDOCYST THAT IS NEW COMPARED TO THE OLD CT SCAN OF 07/15/2017. ABSCESS IS ALSO POSSIBLE. NO FREE AIR OR FLUID. CHANGES IN THIS DISTAL SMALL BOWEL CONSISTENT WITH MILD ILEUS. Mild splenomegaly.
[2017-08-19 01:21] VITALS: BP 138/74; PULSE 88; TEMP 101.3
[2017-08-19] MEDS ORDERED: KETOROLAC 30 MG/ML 1 ML VIAL IVP STA (01:22)
--- NOTE | 2017-08-19 01:23 | XR ---
EXAMINATION TYPE: XR chest 2V DATE OF EXAM: 08/19/2017 COMPARISON: 07/29/2016 HISTORY: Fever. Pancreatic cyst. TECHNIQUE: Frontal and lateral views of the chest are obtained. FINDINGS: Heart and mediastinum are normal. Lungs are clear. Diaphragm is normal. Bony thorax appear s normal. IMPRESSION: Normal chest. There is improved inspiration compared to old exam.
[2017-08-19 01:55] LABS: Glucose,Whole Blood 256 mg/dL (75-99)
== END 2017-08-19 02:08 | disposition other institution (70) ==
LOC: EC 21:45
DX: K85.90 Acute pancreatitis without necrosis or infection, unspecified (principal); E11.9 Type 2 diabetes mellitus without complications; E78.5 Hyperlipidemia, unspecified; I10 Essential (primary) hypertension; F41.9 Anxiety disorder, unspecified; F32.9 Major depressive disorder, single episode, unspecified; Z90.49 Acquired absence of other specified parts of digestive tract; Z87.891 Personal history of nicotine dependence; Z79.4 Long term (current) use of insulin; Z79.01 Long term (current) use of anticoagulants; Z79.899 Other long term (current) drug therapy; Z79.02 Long term (current) use of antithrombotics/antiplatelets; Z88.0 Allergy status to penicillin; Z98.890 Other specified postprocedural states
CPT/HCPCS: 36415 ×2; 80053; 82150; 83605; 83690; 85025; 81003; 87040; 87086; 71046; 74177; 99285; 96374; 96375 ×4; 96361; J2270; J2405; J0696; J1885; Q9967

== ENCOUNTER 2017-11-13 20:32 | Emergency (ER) | payer OTHER ==
[2017-11-13] MEDS ORDERED: SODIUM CHLORIDE 0.9% 1,000 ML IV STA (21:33)
[2017-11-13 21:49] LABS: Basophils % (A) 0 %; Eosinophils % (A) 0 %; HCT 41.1 % (39.0-53.0); HGB 14.2 gm/dL (13.0-17.5); Lymphocytes # (A) 1.2 k/uL (1.0-4.8); Lymphocytes % (A) 10 %; MCH 28.6 pg (25.0-35.0); MCHC 34.6 g/dL (31.0-37.0); MCV 82.7 fL (80.0-100.0); Mean Platelet Volume 8.4; Monocytes # (A) 0.7 k/uL (0-1.0); Monocytes % (A) 6 %; Neutrophils # (A) 9.2 k/uL (1.3-7.7); Neutrophils % (A) 83 %; Platelet Count 157 k/uL (150-450); RBC 4.96 m/uL (4.30-5.90); RDW 13.6 % (11.5-15.5); WBC 11.1 k/uL (3.8-10.6)
[2017-11-13 21:58] LABS: ALT 54 U/L (21-72); AST 27 U/L (17-59); Albumin 4.1 g/dL (3.5-5.0); Alkaline Phosphatase 95 U/L (38-126); Amylase <30 U/L (30-110); Anion Gap 12 mmol/L; Blood Urea Nitrogen 12 mg/dL (9-20); Calcium 8.8 mg/dL (8.4-10.2); Carbon Dioxide 26 mmol/L (22-30); Chloride 97 mmol/L (98-107); Glucose 424 mg/dL (74-99); INR 1.1 (<1.2); Lipase 15 U/L (23-300); Potassium 5.5 mmol/L (3.5-5.1); Prothrombin Time 10.4 sec (9.0-12.0); Sodium 135 mmol/L (137-145); Total Bilirubin 0.4 mg/dL (0.2-1.3); Total Protein 6.5 g/dL (6.3-8.2)
[2017-11-13 22:38] VITALS: RESP 16
[2017-11-13 22:42] LABS: Appearance,Urine Clear (Clear); Bilirubin,Urine Negative (Negative); Blood,Urine Negative (Negative); Color,Urine Yellow; Glucose,Urine (UA) 4+ (Negative); Ketones,Urine Negative (Negative); Leukocyte Esterase,Urine Negative (Negative); Nitrite,Urine Negative (Negative); PH, Urine 5.5 (5.0-8.0); Protein,Urine Negative (Negative); Specific Gravity,Urine 1.023 (1.001-1.035); Urobilinogen,Urine <2.0 mg/dL (<2.0)
--- NOTE | 2017-11-13 22:47 | CT ---
EXAMINATION TYPE: CT abdomen pelvis w con DATE OF EXAM: 11/13/2017 COMPARISON: 08/19/2017 HISTORY: 50cc of blood draining into drainage bag every day for past month. History of pseudo cyst dr cohen. CT DLP: 772.4 mGycm Automated exposure control for dose reduction was used. TECHNIQUE: Helical acquisition of images was performed from the lung bases through the pelvis. CONTRAST: Performed without Oral Contrast and with IV Contrast, patient injected with 100 mL of Isovue 300. FINDINGS: Lung bases are clear. There is no pleural effusion. Heart size is normal. Liver spleen appear normal. There are clips from cholecystectomy. Bile ducts are not dilated. There i s a drainage catheter in the left side retroperitoneum in the region of the tail of the pancreas. The re is no adrenal mass. Kidneys show satisfactory contrast opacification. There is no hydronephrosis. There is minimal stranding around the drainage catheter. Pancreas shows no evidence of a mass. There is very little pancreatic tissue identified. There is retained fecal material in the colon. Bladder d istends smoothly. I see no evidence of a bowel obstruction. There is no free air. There is no ascites . I see no bony destructive process. Ureters are not dilated. IMPRESSION: THERE IS SOME CONSTIPATION. DRAINAGE CATHETER IN THE RETROPERITONEUM ON THE LEFT SIDE. PANCREATIC ATR OPHY. THERE IS ESSENTIALLY COMPLETE DRAINAGE OF THE COMPLEX CYST IN THE RETROPERITONEUM ON THE LEFT S ROM COMPARED TO 08/19/2017. THERE IS SOME MILD RESIDUAL STRANDING IN THE REGION OF THE CATHETER.
[2017-11-13 23:27] LABS: Glucose,Whole Blood 306 mg/dL (75-99)
--- NOTE | 2017-11-13 23:35 | ED ---
Abdominal Pain HPI - General Chief Complaint: Abdominal Pain Stated Complaint: blood loss with drain tube Time Seen by Provider: 11/13/17 20:53 Source: patient Mode of arrival: wheelchair Limitations: no limitations - History of Present Illness Initial Comments: 32-year-old male patient presents to the emergency department today for complaints of fatigue and increased left-sided abdominal pain. Patient does have a history significant for chronic alcohol abuse currently in remission, chronic pancreatitis, and pancreatic cyst. The patient had placement of a retroperitoneal drain in May 2017. Patient states he has been having approximately 50 mL of sanguinous drainage daily from the drain for the last month. Patient states that over the last 2 days he has been feeling very fatigued. States that he is also had increase in left-sided abdominal pain. States that mostly the left upper quadrant. States it is very sharp in nature and did not improve with use of his home [place]. He denies any nausea or vomiting. Denies any constipation or diarrhea. He denies any fevers or chills with this. Denies any presence of purulent drainage in the drain. He has management of the drain with [facility]. Patient denies any recent rash, shortness breath, chest pain, back pain, numbness, tingling, dizziness, weakness, hematuria, dysuria, urinary urgency, urinary frequency, headache, visual changes, or any other complaints. - Related Data Home Medications Medication Instructions Recorded Confirmed Fenofibrate Nanocrystallized 145 mg PO HS 03/21/17 11/13/17 [Tricor] INSULIN LISPRO (humaLOG) [humaLOG] See Protocol SQ AC-TID 03/21/17 11/13/17 Citalopram Hydrobromide [CeleXA] 20 mg PO HS 06/01/17 11/13/17 LORazepam [Ativan] 1 mg PO BID PRN 07/05/17 11/13/17 Carvedilol [Coreg] 6.25 mg PO HS 08/18/17 11/13/17 Disulfiram 250 mg PO HS 08/18/17 11/13/17 Famotidine [Pepcid] 20 mg PO BID PRN 08/18/17 11/13/17 Folic Acid 1 mg PO HS 08/18/17 11/13/17 HYDROcodone/APAP 5-325MG [[place] 1 - 2 tab PO Q6HR PRN 08/18/17 11/13/17 5-325] traZODone HCL 50 mg PO HS 08/18/17 11/13/17 Allergies Allergy/AdvReac Type Severity Reaction Status Date / Time Penicillins Allergy Rash/Hives Verified 11/13/17 21:08 Review of Systems ROS Statement: Those systems with pertinent positive or pertinent negative responses have been documented in the HPI. ROS Other: All systems not noted in ROS Statement are negative. Past Medical History Past Medical History: Diabetes Mellitus, GERD/Reflux, Hyperlipidemia, Hypertension Additional Past Medical History / Comment(s): Pt recently admitted to [facility] on with acute alcoholic pancreatitis, acute alcohol hepatitis, acute renal failure. Other hx: Alcoholism, diabetes mellitus, pancreatitis, hyperlipidemia, hypertension, GE reflux, pancreatic cyst History of Any Multi-Drug Resistant Organisms: None Reported Past Surgical History: Cholecystectomy Additional Past Surgical History / Comment(s): Jaw surgery as child, wisdom teeth extraction, Drainage of a pseudocyst on pancreas Past Anesthesia/Blood Transfusion Reactions: No Reported Reaction Past Psychological History: Anxiety, Depression Smoking Status: Former smoker Past Alcohol Use History: None Reported, Daily, Heavy, Heavy Past Drug Use History: None Reported - Past Family History Father Family Medical History: No Reported History, Diabetes Mellitus Mother Family Medical History: No Reported History Additional Family Medical History / Comment(s): Mother is healthy General Exam Limitations: no limitations General appearance: alert, in no apparent distress, other (This is a well- developed, well-nourished adult male patient in no acute distress. Vital signs upon presentation are temperature 98.0F, pulse 86, respirations 20, blood pressure 117/69, pulse ox 97% on room air.) Eye exam: Present: normal appearance, PERRL, EOMI. Absent: scleral icterus, conjunctival injection, periorbital swelling ENT exam: Present: normal exam, normal oropharynx, mucous membranes moist Respiratory exam: Present: normal lung sounds bilaterally. Absent: respiratory distress, wheezes, rales, rhonchi, stridor Cardiovascular Exam: Present: regular rate, normal rhythm, normal heart sounds. Absent: systolic murmur, diastolic murmur, rubs, gallop, clicks GI/Abdominal exam: Present: soft, tenderness (Left upper and left lower quadrant ), normal bowel sounds. Absent: distended, guarding, rebound, rigid Neurological exam: Present: alert, oriented X3, CN II-XII intact Psychiatric exam: Present: normal affect, normal mood Skin exam: Present: warm, dry, intact, normal color. Absent: rash Course Vital Signs 11/13/17 11/13/17 11/13/17 20:46 22:37 23:46 Temperature 98.0 F 98.0 F 98.1 F Pulse Rate 86 69 67 Respiratory 20 16 16 Rate Blood Pressure 117/69 120/56 121/73 O2 Sat by Pulse 97 96 96 Oximetry Medical Decision Making - Medical Decision Making 32-year-old male patient presented to the emergency department today for complaints of sanguinous drainage in his retroperitoneal drain, fatigue, and left-sided abdominal pain. Physical examination did reveal left upper and left lower quadrant abdominal tenderness. Labs revealed an elevated white blood cell count at 11.1. His sodium was 135, potassium 5.5, CO2 is 26, anion gap was 12. Blood sugar is 424. CT of the abdomen and pelvis with contrast was obtained. Shows no acute abnormalities. We did discuss findings and results with the patient. We were going to administer insulin, sherron refuses stating that he will a dose with his insulin pump. Patient will be discharged home to follow-up with his specialist and report hospital. He is instructed to return here immediately for any new, worsening, or concerning symptoms. He verbalizes understanding and agrees this plan. - Lab Data Result diagrams: 11/13/17 21:22 11/13/17 21:22 Lab Results 11/13/17 11/13/17 11/13/17 Range/Units 21:22 21:22 21:22 WBC 11.1 H (3.8-10.6) k/uL RBC 4.96 (4.30-5.90) m/uL Hgb 14.2 (13.0-17.5) gm/dL Hct 41.1 (39.0-53.0) % MCV 82.7 (80.0-100.0) fL MCH 28.6 (25.0-35.0) pg MCHC 34.6 (31.0-37.0) g/dL RDW 13.6 (11.5-15.5) % Plt Count 157 (150-450) k/uL Neutrophils % 83 % Lymphocytes % 10 % Monocytes % 6 % Eosinophils % 0 % Basophils % 0 % Neutrophils # 9.2 H (1.3-7.7) k/uL Lymphocytes # 1.2 (1.0-4.8) k/uL Monocytes # 0.7 (0-1.0) k/uL Eosinophils # 0.0 (0-0.7) k/uL Basophils # 0.0 (0-0.2) k/uL PT 10.4 (9.0-12.0) sec INR 1.1 (<1.2) APTT 22.0 (22.0-30.0) sec Sodium 135 L (137-145) mmol/L Potassium 5.5 H (3.5-5.1) mmol/L Chloride 97 L (98-107) mmol/L Carbon Dioxide 26 (22-30) mmol/L Anion Gap 12 mmol/L BUN 12 (9-20) mg/dL Creatinine 1.15 (0.66-1.25) mg/dL Est GFR (CKD-EPI)AfAm >90 (>60 ml/min/1.73 sqM) Est GFR (CKD-EPI)NonAf 84 (>60 ml/min/1.73 sqM) Glucose 424 H (74-99) mg/dL POC Glucose (mg/dL) (75-99) mg/dL POC Glu Stacker ID Calcium 8.8 (8.4-10.2) mg/dL Total Bilirubin 0.4 (0.2-1.3) mg/dL AST 27 (17-59) U/L ALT 54 (21-72) U/L Alkaline Phosphatase 95 (38-126) U/L Total Protein 6.5 (6.3-8.2) g/dL Albumin 4.1 (3.5-5.0) g/dL Amylase <30 L (30-110) U/L Lipase 15 L (23-300) U/L Urine Color Urine Appearance (Clear) Urine pH (5.0-8.0) Ur Specific [place] (1.001-1.035) Urine Protein (Negative) Urine Glucose (UA) (Negative) Urine Ketones (Negative) Urine Blood (Negative) Urine Nitrite (Negative) Urine Bilirubin (Negative) Urine Urobilinogen (<2.0) mg/dL Ur Leukocyte Esterase (Negative) 11/13/17 11/13/17 Range/Units 22:30 23:23 WBC (3.8-10.6) k/uL RBC (4.30-5.90) m/uL Hgb (13.0-17.5) gm/dL Hct (39.0-53.0) % MCV (80.0-100.0) fL MCH (25.0-35.0) pg MCHC (31.0-37.0) g/dL RDW (11.5-15.5) % Plt Count (150-450) k/uL Neutrophils % % Lymphocytes % % Monocytes % % Eosinophils % % Basophils % % Neutrophils # (1.3-7.7) k/uL Lymphocytes # (1.0-4.8) k/uL Monocytes # (0-1.0) k/uL Eosinophils # (0-0.7) k/uL Basophils # (0-0.2) k/uL PT (9.0-12.0) sec INR (<1.2) APTT (22.0-30.0) sec Sodium (137-145) mmol/L Potassium (3.5-5.1) mmol/L Chloride (98-107) mmol/L Carbon Dioxide (22-30) mmol/L Anion Gap mmol/L BUN (9-20) mg/dL Creatinine (0.66-1.25) mg/dL Est GFR (CKD-EPI)AfAm (>60 ml/min/1.73 sqM) Est GFR (CKD-EPI)NonAf (>60 ml/min/1.73 sqM) Glucose (74-99) mg/dL POC Glucose (mg/dL) 306 H (75-99) mg/dL POC Glu Stacker ID Calcium (8.4-10.2) mg/dL Total Bilirubin (0.2-1.3) mg/dL AST (17-59) U/L ALT (21-72) U/L Alkaline Phosphatase (38-126) U/L Total Protein (6.3-8.2) g/dL Albumin (3.5-5.0) g/dL Amylase (30-110) U/L Lipase (23-300) U/L Urine Color Yellow Urine Appearance Clear (Clear) Urine pH 5.5 (5.0-8.0) Ur Specific [place] 1.023 (1.001-1.035) Urine Protein Negative (Negative) Urine Glucose (UA) 4+ H (Negative) Urine Ketones Negative (Negative) Urine Blood Negative (Negative) Urine Nitrite Negative (Negative) Urine Bilirubin Negative (Negative) Urine Urobilinogen <2.0 (<2.0) mg/dL Ur Leukocyte Esterase Negative (Negative) - Radiology Data Radiology results: report reviewed, image reviewed CT of the head and pelvis with contrast was obtained. Report was reviewed in its entirety. Impression by Dr. Bennett shows some constipation. Drainage catheter and retroperitoneum on the left side. Pancreatic atrophy. There is essentially complete drainage of the complex cyst in the retroperitoneum on the left side compared to 08/19/2017. There is some mild residual stranding in the region of the catheter. Disposition Clinical Impression: Fatigue, Abdominal pain Disposition: HOME SELF-CARE Condition: Good Instructions: Abdominal Pain (ED), Fatigue (ED) Additional Instructions: Continue to monitor blood sugars. Follow-up with your specialist that Bharathi Carmona. Return here immediately for any new, worsening, or concerning symptoms. Is patient prescribed a controlled substance at d/c from ED?: No Referrals: Luke Rosado DO [Primary Care Provider] - 1-2 days Time of Disposition: 23:38
[2017-11-13 23:54] VITALS: BP 121/73; PULSE 67; TEMP 98.1
== END 2017-11-13 23:55 | disposition home or self-care (01) ==
LOC: EC 20:32
DX: R10.9 Unspecified abdominal pain (principal); R53.83 Other fatigue; E11.9 Type 2 diabetes mellitus without complications; K21.9 Gastro-esophageal reflux disease without esophagitis; E78.5 Hyperlipidemia, unspecified; F32.9 Major depressive disorder, single episode, unspecified; F41.9 Anxiety disorder, unspecified; I10 Essential (primary) hypertension; Z87.19 Personal history of other diseases of the digestive system; Z98.890 Other specified postprocedural states; Z87.891 Personal history of nicotine dependence; Z90.49 Acquired absence of other specified parts of digestive tract; Z79.4 Long term (current) use of insulin; Z79.899 Other long term (current) drug therapy; Z88.0 Allergy status to penicillin
CPT/HCPCS: 36415; 80053; 82150; 83690; 85025; 85610; 85730; 81003; 74177; 99284; 96360; 96361; Q9967

== ENCOUNTER → 2017-11-19 | Outpatient (CLI) | payer OTHER ==
--- NOTE | 2017-11-19 16:35 | MR ---
EXAMINATION TYPE: MR MRCP DATE OF EXAM: 11/19/2017 COMPARISON: 03/13/[address] abdomen pelvis dated 11/13/2017 HISTORY: F/U to pancreatic cyst TECHNIQUE: Standard multiplanar, multisequence MRCP was performed per departmental protocol utilizing [id number] imaging to image the biliary tree without intravenous contrast. FINDINGS: There is no significant signal dropout of the liver on out of phase imaging is compared in phase imaging to suggest hepatic steatosis. Impressing upon the caudate lobe of the liver there is a T1 hyperintense 1.3 cm lesion that is T2 hypointense. This is unchanged from the prior of 03/13/2017. However this has decreased in size from the exam of 07/29/2016 where there is a large complex pancreat ic cyst. Therefore this likely represents a small residual peripancreatic pseudocyst with internal he morrhage or proteinaceous debris. The common bile duct is nonenlarged measuring 4 mm. The common hepatic duct is also nonenlarged. No i ntrahepatic biliary ductal dilatation. Gallbladder is surgically absent. There is no main pancreatic ductal dilatation. Spleen measures 14.6 cm in longitudinal dimension and is enlarged. Abdominal aorta is of normal course and caliber. Kidneys are symmetric. No hydronephrosis. No gross evidence of nelson opathy within the abdomen or pelvis. The previously seen large 11.6 x 8.9 cm pancreatic fluid collect ion likely representing a pseudocyst is no longer present. Scarring is seen as fibrotic change along the site of a left upper quadrant drainage catheter. IMPRESSION: 1. Complete resolution with fibrotic change of the previously seen large complex peripancreatic pseud ocyst status post drainage catheter placement. 2. Residual small 1.3 cm lesion most compatible with a hemorrhagic or proteinaceous containing peripa ncreatic pseudocyst abutting the caudate lobe of the liver, decrease in size from 07/29/2016 and stabl e from 03/13/2017. 3. Incidentally noted splenomegaly.
== END ==
LOC: RADMRIMAIN 13:27
PROVIDERS: ATTEND Surgery
DX: K76.9 Liver disease, unspecified (principal)
CPT/HCPCS: 74181

== ENCOUNTER 2017-11-24 07:59 | Emergency (ER) | payer OTHER ==
[2017-11-24 08:03] VITALS: RESP 18
[2017-11-24] MEDS ORDERED: SODIUM CHLORIDE 0.9% 1,000 ML IV STA (08:24)
--- NOTE | 2017-11-24 08:27 | ED ---
General Adult HPI - General Chief complaint: Fever Stated complaint: Fever Time Seen by Provider: 11/24/17 08:15 Source: patient, RN notes reviewed Mode of arrival: ambulatory Limitations: no limitations - History of Present Illness Initial comments: 32-year-old male presenting to the emergency room today with a chief complaint of fever. States fever started 2 days ago. He does admit that he had a drain was in a pancreatic cyst removed 3 days ago. She is following day began having fevers. Patient states she's been controlling fever at home with his [place] and ibuprofen. He states he took these prior to coming in to the emergency room today. Patient admits to pain in the left flank area but states that this is consistent with pain that he's been experiencing with this pancreatic cyst/ drain. Patient does admit to a cough. Patient denies any recent shortness of breath, chest pain, vomiting, numbness or tingling, dysuria or hematuria, constipation or diarrhea, headaches or visual changes, or any other complaints. - Related Data Home Medications Medication Instructions Recorded Confirmed Fenofibrate Nanocrystallized 145 mg PO HS 03/21/17 11/13/17 [Tricor] INSULIN LISPRO (humaLOG) [humaLOG] See Protocol SQ AC-TID 03/21/17 11/13/17 Citalopram Hydrobromide [CeleXA] 20 mg PO HS 06/01/17 11/13/17 LORazepam [Ativan] 1 mg PO BID PRN 07/05/17 11/13/17 Carvedilol [Coreg] 6.25 mg PO HS 08/18/17 11/13/17 Disulfiram 250 mg PO HS 08/18/17 11/13/17 Famotidine [Pepcid] 20 mg PO BID PRN 08/18/17 11/13/17 Folic Acid 1 mg PO HS 08/18/17 11/13/17 HYDROcodone/APAP 5-325MG [[place] 1 - 2 tab PO Q6HR PRN 08/18/17 11/13/17 5-325] traZODone HCL 50 mg PO HS 08/18/17 11/13/17 Allergies Allergy/AdvReac Type Severity Reaction Status Date / Time Penicillins Allergy Rash/Hives Verified 11/24/17 08:04 Review of Systems ROS Statement: Those systems with pertinent positive or pertinent negative responses have been documented in the HPI. ROS Other: All systems not noted in ROS Statement are negative. Past Medical History Past Medical History: Diabetes Mellitus, GERD/Reflux, Hyperlipidemia, Hypertension Additional Past Medical History / Comment(s): Pt recently admitted to [facility] on with acute alcoholic pancreatitis, acute alcohol hepatitis, acute renal failure. Other hx: Alcoholism, diabetes mellitus, pancreatitis, hyperlipidemia, hypertension, GE reflux, pancreatic cyst History of Any Multi-Drug Resistant Organisms: None Reported Past Surgical History: Cholecystectomy Additional Past Surgical History / Comment(s): Jaw surgery as child, wisdom teeth extraction, Drainage of a pseudocyst on pancreas Past Anesthesia/Blood Transfusion Reactions: No Reported Reaction Past Psychological History: Anxiety, Depression Smoking Status: Former smoker Past Alcohol Use History: None Reported, Daily, Heavy, Heavy Past Drug Use History: None Reported - Past Family History Father Family Medical History: No Reported History, Diabetes Mellitus Mother Family Medical History: No Reported History Additional Family Medical History / Comment(s): Mother is healthy General Exam - General Exam Comments Initial Comments: General: The patient is awake and alert, in no distress, and does not appear acutely ill. Eye: Pupils are equal, round and reactive to light, extra-ocular movements are intact. No nystagmus. There is normal conjunctiva bilaterally. No signs of icterus. Ears, nose, mouth and throat: There are moist mucous membranes and no oral lesions. Neck: The neck is supple, there is no tenderness or JVD. Cardiovascular: There is a regular rate and rhythm. No murmur, rub or gallop is appreciated. Respiratory: Lungs are clear to auscultation, respirations are non-labored, breath sounds are equal. No wheezes, stridor, rales, or rhonchi. Gastrointestinal: Soft, non-distended, without masses or organomegaly noted. Mildly tender in the left side of the abdomen. There is no rebound or guarding present. No CVA tenderness. Musculoskeletal: Normal ROM, no tenderness. Strength 5/5. Sensation intact. Pulses equal bilaterally 2+. Neurological: A&O x 3. CN II-XII intact, There are no obvious motor or sensory deficits. Coordination appears grossly intact. Speech is normal. Skin: Skin is warm and dry and no rashes or lesions are noted. Psychiatric: Cooperative, appropriate mood & affect, normal judgment. Limitations: no limitations Course Vital Signs 11/24/17 11/24/17 08:00 11:16 Temperature 99.5 F 98.7 F Pulse Rate 102 H 78 Respiratory 18 18 Rate Blood Pressure 104/65 96/53 O2 Sat by Pulse 98 98 Oximetry Medical Decision Making - Medical Decision Making Patient's CT of the abdomen and pelvis does show 1. A fluid collection involving the tail the papers region measuring 4.21.9 cm in AP and transverse dimensions but extends 11 cm in the craniocaudal dimensions. Findings are compatible with recurrent pseudocyst collection. Infected pseudocyst not excluded as read by radiologist Dr. patricia. Patient's labs been reviewed does show an 11,000 white count with a mild shift. Patient vitals are stable here in emergency room. No recorded temperature. Did take [place]/ibuprofen prior to coming to the emergency room. Patient admits that pain is similar to pain that is experienced over the last several months with this pseudocyst. Case discussed with attending physician Dr. Desai. Case discussed with [facility] where patient's surgeon is located. Spoke with Dr. Adams who will accept the patient. Patient given dose of Levaquin here in the emergency room. Patient is aware the plan states understanding and is in agreement. - Lab Data Result diagrams: 11/24/17 08:19 11/24/17 08:19 Lab Results 11/24/17 11/24/17 11/24/17 Range/Units 08:19 08:19 08:19 WBC 11.4 H (3.8-10.6) k/uL RBC 4.75 (4.30-5.90) m/uL Hgb 13.2 (13.0-17.5) gm/dL Hct 38.6 L (39.0-53.0) % MCV 81.4 (80.0-100.0) fL MCH 27.9 (25.0-35.0) pg MCHC 34.2 (31.0-37.0) g/dL RDW 13.8 (11.5-15.5) % Plt Count 130 L (150-450) k/uL Neutrophils % 85 % Lymphocytes % 8 % Monocytes % 5 % Eosinophils % 1 % Basophils % 0 % Neutrophils # 9.6 H (1.3-7.7) k/uL Lymphocytes # 0.9 L (1.0-4.8) k/uL Monocytes # 0.6 (0-1.0) k/uL Eosinophils # 0.1 (0-0.7) k/uL Basophils # 0.0 (0-0.2) k/uL Sodium 132 L (137-145) mmol/L Potassium 3.9 (3.5-5.1) mmol/L Chloride 98 (98-107) mmol/L Carbon Dioxide 22 (22-30) mmol/L Anion Gap 12 mmol/L BUN 14 (9-20) mg/dL Creatinine 0.91 (0.66-1.25) mg/dL Est GFR (CKD-EPI)AfAm >90 (>60 ml/min/1.73 sqM) Est GFR (CKD-EPI)NonAf >90 (>60 ml/min/1.73 sqM) Glucose 322 H (74-99) mg/dL Plasma Lactic Acid Aleksandar 0.9 (0.7-2.0) mmol/L Calcium 8.8 (8.4-10.2) mg/dL Total Bilirubin 0.6 (0.2-1.3) mg/dL AST 20 (17-59) U/L ALT 46 (21-72) U/L Alkaline Phosphatase 91 (38-126) U/L Total Protein 6.1 L (6.3-8.2) g/dL Albumin 3.5 (3.5-5.0) g/dL Amylase <30 L (30-110) U/L Lipase <10 L (23-300) U/L Urine Color Urine Appearance (Clear) Urine pH (5.0-8.0) Ur Specific [place] (1.001-1.035) Urine Protein (Negative) Urine Glucose (UA) (Negative) Urine Ketones (Negative) Urine Blood (Negative) Urine Nitrite (Negative) Urine Bilirubin (Negative) Urine Urobilinogen (<2.0) mg/dL Ur Leukocyte Esterase (Negative) Urine RBC (0-5) /hpf Urine WBC (0-5) /hpf Hyaline Casts (0-2) /lpf Urine Mucus (None) /hpf 11/24/17 Range/Units 11:20 WBC (3.8-10.6) k/uL RBC (4.30-5.90) m/uL Hgb (13.0-17.5) gm/dL Hct (39.0-53.0) % MCV (80.0-100.0) fL MCH (25.0-35.0) pg MCHC (31.0-37.0) g/dL RDW (11.5-15.5) % Plt Count (150-450) k/uL Neutrophils % % Lymphocytes % % Monocytes % % Eosinophils % % Basophils % % Neutrophils # (1.3-7.7) k/uL Lymphocytes # (1.0-4.8) k/uL Monocytes # (0-1.0) k/uL Eosinophils # (0-0.7) k/uL Basophils # (0-0.2) k/uL Sodium (137-145) mmol/L Potassium (3.5-5.1) mmol/L Chloride (98-107) mmol/L Carbon Dioxide (22-30) mmol/L Anion Gap mmol/L BUN (9-20) mg/dL Creatinine (0.66-1.25) mg/dL Est GFR (CKD-EPI)AfAm (>60 ml/min/1.73 sqM) Est GFR (CKD-EPI)NonAf (>60 ml/min/1.73 sqM) Glucose (74-99) mg/dL Plasma Lactic Acid Aleksandar (0.7-2.0) mmol/L Calcium (8.4-10.2) mg/dL Total Bilirubin (0.2-1.3) mg/dL AST (17-59) U/L ALT (21-72) U/L Alkaline Phosphatase (38-126) U/L Total Protein (6.3-8.2) g/dL Albumin (3.5-5.0) g/dL Amylase (30-110) U/L Lipase (23-300) U/L Urine Color Light Yellow Urine Appearance Clear (Clear) Urine pH 5.5 (5.0-8.0) Ur Specific [place] 1.023 (1.001-1.035) Urine Protein Negative (Negative) Urine Glucose (UA) 4+ H (Negative) Urine Ketones Trace H (Negative) Urine Blood Trace H (Negative) Urine Nitrite Negative (Negative) Urine Bilirubin Negative (Negative) Urine Urobilinogen <2.0 (<2.0) mg/dL Ur Leukocyte Esterase Negative (Negative) Urine RBC <1 (0-5) /hpf Urine WBC 1 (0-5) /hpf Hyaline Casts 5 H (0-2) /lpf Urine Mucus Rare H (None) /hpf Disposition Clinical Impression: Pancreatic pseudocyst, Leukocytosis Disposition: OTHER INSTITUTION NOT DEFINED Condition: Good Is patient prescribed a controlled substance at d/c from ED?: No Referrals: Luke Rosado DO [Primary Care Provider] - 1-2 days Time of Disposition: 11:40 - Out of Hospital Transfer - Req. Specs Out of Hospital Transfer - Requested Specifics: Other Emergency Center ([facility])
[2017-11-24 08:37] LABS: Basophils % (A) 0 %; Eosinophils # (A) 0.1 k/uL (0-0.7); Eosinophils % (A) 1 %; HCT 38.6 % (39.0-53.0); HGB 13.2 gm/dL (13.0-17.5); Lymphocytes # (A) 0.9 k/uL (1.0-4.8); Lymphocytes % (A) 8 %; MCH 27.9 pg (25.0-35.0); MCHC 34.2 g/dL (31.0-37.0); MCV 81.4 fL (80.0-100.0); Mean Platelet Volume 8.6; Monocytes # (A) 0.6 k/uL (0-1.0); Monocytes % (A) 5 %; Neutrophils # (A) 9.6 k/uL (1.3-7.7); Neutrophils % (A) 85 %; Platelet Count 130 k/uL (150-450); RBC 4.75 m/uL (4.30-5.90); RDW 13.8 % (11.5-15.5); WBC 11.4 k/uL (3.8-10.6)
[2017-11-24 08:44] LABS: ALT 46 U/L (21-72); AST 20 U/L (17-59); Albumin 3.5 g/dL (3.5-5.0); Alkaline Phosphatase 91 U/L (38-126); Amylase <30 U/L (30-110); Anion Gap 12 mmol/L; Blood Urea Nitrogen 14 mg/dL (9-20); Calcium 8.8 mg/dL (8.4-10.2); Carbon Dioxide 22 mmol/L (22-30); Chloride 98 mmol/L (98-107); Glucose 322 mg/dL (74-99); Lipase <10 U/L (23-300); Potassium 3.9 mmol/L (3.5-5.1); Sodium 132 mmol/L (137-145); Total Bilirubin 0.6 mg/dL (0.2-1.3); Total Protein 6.1 g/dL (6.3-8.2)
--- NOTE | 2017-11-24 08:51 | XR ---
EXAMINATION TYPE: XR chest 2V DATE OF EXAM: 11/24/2017 COMPARISON: 08/19/2017 TECHNIQUE: PA and lateral views submitted. HISTORY: Cough and fever FINDINGS: The lungs are clear and there is no pneumothorax, pleural effusion, or focal pneumonia. No overt fa ilure. Biapical pleural thickening. Previous surgery involving the abdomen. IMPRESSION: 1. No acute process.
--- NOTE | 2017-11-24 10:50 | CT ---
EXAMINATION TYPE: CT abdomen pelvis w con DATE OF EXAM: 11/24/2017 COMPARISON: 11/13/2017 HISTORY: Fever CT DLP: 654.1 mGycm Automated exposure control for dose reduction was used. CONTRAST: CT scan of the abdomen pelvis is performed with IV Contrast, patient injected with 100 mL of Isovue 3 00. FINDINGS- LUNG BASES- No significant abnormality is appreciated. LIVER/GB-postcholecystectomy changes are noted.. PANCREAS- No gross abnormality is seen. SPLEEN-findings compatible with splenomegaly with the spleen measuring 15 cm. ADRENALS-stable nodularity left adrenal gland.. KIDNEYS/BLADDER- no hydronephrosis nephrolithiasis or renal mass. BOWEL-gas pattern nonspecific. Small fat-containing periumbilical hernia incidentally noted.. LYMPH NODES- No greater than 1cm abdominal or pelvic lymph nodes are appreciated. OSSEOUS STRUCTURES- No significant abnormality is seen. OTHER- the drainage catheter has been removed. There is a small recurrent pseudocyst near the tail t he pancreas measuring 4.2 x 1.9 cm. This appears to be deep within the abdomen. IMPRESSION- 1. There is a fluid collection involving the tail the pancreas region measuring 4.2 x 1.9 cm in AP an d transverse dimension but extends 11 cm in craniocaudal dimension. Findings are compatible with recu rrent pseudocyst collection. Infected pseudocyst not excluded.
[2017-11-24 11:31] LABS: Appearance,Urine Clear (Clear); Bilirubin,Urine Negative (Negative); Blood,Urine Trace (Negative); Color,Urine Light Yellow; Glucose,Urine (UA) 4+ (Negative); Hyaline Casts,Urine 5 /lpf (0-2); Ketones,Urine Trace (Negative); Leukocyte Esterase,Urine Negative (Negative); Mucus,Urine Rare /hpf; Nitrite,Urine Negative (Negative); PH, Urine 5.5 (5.0-8.0); Protein,Urine Negative (Negative); RBC,Urine <1 /hpf (0-5); Specific Gravity,Urine 1.023 (1.001-1.035); Urobilinogen,Urine <2.0 mg/dL (<2.0); WBC,Urine 1 /hpf (0-5)
[2017-11-24] MEDS ORDERED: LEVOFLOXACIN 500MG-D5W PMX 500 MG in DEXTROSE/WATER 1 100ML.BAG IVPB STA (11:33)
[2017-11-24 12:33] VITALS: BP 97/53; PULSE 98; TEMP 98.1
== END 2017-11-24 12:49 | disposition other institution (70) ==
LOC: EC 07:59
DX: K86.3 Pseudocyst of pancreas (principal); D72.829 Elevated white blood cell count, unspecified; R05 Cough; E11.9 Type 2 diabetes mellitus without complications; K21.9 Gastro-esophageal reflux disease without esophagitis; E78.5 Hyperlipidemia, unspecified; I10 Essential (primary) hypertension; F41.9 Anxiety disorder, unspecified; F32.9 Major depressive disorder, single episode, unspecified; Z87.891 Personal history of nicotine dependence; Z90.49 Acquired absence of other specified parts of digestive tract; Z79.4 Long term (current) use of insulin; Z79.899 Other long term (current) drug therapy; Z88.0 Allergy status to penicillin
CPT/HCPCS: 36415; 80053; 82150; 83605; 83690; 85025; 81001; 87040; 87086; 71046; 74177; 99285; 96365; 96361; J1956; Q9967

== ENCOUNTER 2017-12-04 17:56 | Emergency (ER) | payer OTHER ==
[2017-12-04 18:47] VITALS: RESP 18
--- NOTE | 2017-12-04 19:17 | ED ---
General Adult HPI - General Chief complaint: Skin/Abscess/Foreign Body Stated complaint: BLEEDING AT Sx SITE Time Seen by Provider: 12/04/17 18:59 Source: patient, RN notes reviewed Mode of arrival: wheelchair Limitations: no limitations - History of Present Illness Initial comments: Patient 32-year-old male significant past medical history for a pseudocyst of the pancreas that he has been following up through [facility]. States he had a drain approximately 10 days ago that was removed. States a area of infection collected which he had a incision and drainage performed 5 days ago. States been on antibiotics and has been changing the packing for this abscess area. States that today he had increased drainage. States that he does not feel comfortable amount of drainage. Patient does admit to pain locally to the area. Does not that he's had some fevers on and off. He denies any other complaints or symptoms. Patient denies any recent fever, chills, shortness of breath, chest pain, numbness or tingling, headaches or visual changes, or any other complaints. - Related Data Home Medications Medication Instructions Recorded Confirmed Fenofibrate Nanocrystallized 145 mg PO HS 03/21/17 12/04/17 [Tricor] INSULIN LISPRO (humaLOG) [humaLOG] See Protocol SQ AC-TID 03/21/17 12/04/17 Citalopram Hydrobromide [CeleXA] 20 mg PO HS 06/01/17 12/04/17 LORazepam [Ativan] 1 mg PO BID PRN 07/05/17 12/04/17 Carvedilol [Coreg] 6.25 mg PO HS 08/18/17 12/04/17 Disulfiram 250 mg PO HS 08/18/17 12/04/17 Famotidine [Pepcid] 20 mg PO BID PRN 08/18/17 12/04/17 Folic Acid 1 mg PO HS 08/18/17 12/04/17 traZODone HCL 50 mg PO HS 08/18/17 12/04/17 Ibuprofen [Motrin Ib] 800 mg PO Q8H PRN 11/24/17 12/04/17 Gabapentin [Neurontin] 600 mg PO TID 12/04/17 12/04/17 Meloxicam [Mobic] 7.5 mg PO DAILY 06/27/18 06/27/18 Methocarbamol [Robaxin-750] 750 mg PO QID PRN 12/04/17 12/04/17 Sulfamethox-Tmp 800-160Mg [Bactrim 1 tab PO Q12HR 12/04/17 12/04/17 DS 800-160 mg] oxyCODONE HCL 10 mg PO Q4H PRN 12/04/17 12/04/17 Allergies Allergy/AdvReac Type Severity Reaction Status Date / Time Penicillins Allergy Rash/Hives Verified 12/04/17 19:08 Review of Systems ROS Statement: Those systems with pertinent positive or pertinent negative responses have been documented in the HPI. ROS Other: All systems not noted in ROS Statement are negative. Past Medical History Past Medical History: Diabetes Mellitus, GERD/Reflux, Hyperlipidemia, Hypertension Additional Past Medical History / Comment(s): Pt recently admitted to [facility] on with acute alcoholic pancreatitis, acute alcohol hepatitis, acute renal failure. Other hx: Alcoholism, diabetes mellitus, pancreatitis, hyperlipidemia, hypertension, GE reflux, pancreatic cyst History of Any Multi-Drug Resistant Organisms: None Reported Past Surgical History: Cholecystectomy Additional Past Surgical History / Comment(s): Jaw surgery as child, wisdom teeth extraction, Drainage of a pseudocyst on pancreas Past Anesthesia/Blood Transfusion Reactions: No Reported Reaction Past Psychological History: Anxiety, Depression Smoking Status: Former smoker Past Alcohol Use History: None Reported, Daily, Heavy, Heavy Past Drug Use History: None Reported - Past Family History Father Family Medical History: No Reported History, Diabetes Mellitus Mother Family Medical History: No Reported History Additional Family Medical History / Comment(s): Mother is healthy General Exam - General Exam Comments Initial Comments: General: The patient is awake and alert, in no distress, and does not appear acutely ill. Eye: Pupils are equal, round and reactive to light, extra-ocular movements are intact. No nystagmus. There is normal conjunctiva bilaterally. No signs of icterus. Ears, nose, mouth and throat: There are moist mucous membranes and no oral lesions. Neck: The neck is supple, there is no tenderness or JVD. Cardiovascular: There is a regular rate and rhythm. No murmur, rub or gallop is appreciated. Respiratory: Lungs are clear to auscultation, respirations are non-labored, breath sounds are equal. No wheezes, stridor, rales, or rhonchi. Gastrointestinal: Abdomen soft on palpation. Does have an abscess in the left upper quadrant.No redness or erythema locally. There is brown purulent drainage soaking through gauze. Musculoskeletal: Normal ROM, no tenderness. Strength 5/5. Sensation intact. Pulses equal bilaterally 2+. Neurological: A&O x 3. CN II-XII intact, There are no obvious motor or sensory deficits. Coordination appears grossly intact. Speech is normal. Skin: Skin is warm and dry and no rashes or lesions are noted. Psychiatric: Cooperative, appropriate mood & affect, normal judgment. Limitations: no limitations Course Vital Signs 12/04/17 12/04/17 18:43 20:07 Temperature 98.3 F 97.5 F L Pulse Rate 90 76 Respiratory 18 18 Rate Blood Pressure 115/74 118/62 O2 Sat by Pulse 93 L 97 Oximetry Medical Decision Making - Medical Decision Making Patient reexamined at this time shows no signs of distress. Patient resting comfortably. Patient admits labs been reviewed that showed 12,000 white count. Patient does have an appointment with his surgeon tomorrow. He is been changing dressing. Does have plain dressing that is been switching daily. Patient. Surrounding the site is well no redness or erythema. No sign of spreading infection. Options were discussed with patient about following up down at [facility] for further evaluation. He does have an appointment tomorrow. Patient's vitals are stable. At this time and advised patient to follow-up appointment tomorrow to see doctor at 11 AM. Advised return to emergency room for any other concerns. - Lab Data Result diagrams: 12/04/17 19:30 12/04/17 19:30 Lab Results 12/04/17 12/04/17 Range/Units 19:30 19:30 WBC 12.0 H (3.8-10.6) k/uL RBC 4.11 L (4.30-5.90) m/uL Hgb 11.2 L (13.0-17.5) gm/dL Hct 33.2 L (39.0-53.0) % MCV 80.7 (80.0-100.0) fL MCH 27.2 (25.0-35.0) pg MCHC 33.8 (31.0-37.0) g/dL RDW 13.3 (11.5-15.5) % Plt Count 334 D (150-450) k/uL Neutrophils % 81 % Lymphocytes % 11 % Monocytes % 6 % Eosinophils % 1 % Basophils % 0 % Neutrophils # 9.7 H (1.3-7.7) k/uL Lymphocytes # 1.3 (1.0-4.8) k/uL Monocytes # 0.7 (0-1.0) k/uL Eosinophils # 0.1 (0-0.7) k/uL Basophils # 0.0 (0-0.2) k/uL Sodium 133 L (137-145) mmol/L Potassium 4.0 (3.5-5.1) mmol/L Chloride 97 L (98-107) mmol/L Carbon Dioxide 23 (22-30) mmol/L Anion Gap 13 mmol/L BUN 12 (9-20) mg/dL Creatinine 0.91 (0.66-1.25) mg/dL Est GFR (CKD-EPI)AfAm >90 (>60 ml/min/1.73 sqM) Est GFR (CKD-EPI)NonAf >90 (>60 ml/min/1.73 sqM) Glucose 243 H (74-99) mg/dL Calcium 8.7 (8.4-10.2) mg/dL Total Bilirubin 0.4 (0.2-1.3) mg/dL AST 20 (17-59) U/L ALT 31 (21-72) U/L Alkaline Phosphatase 103 (38-126) U/L Total Protein 6.1 L (6.3-8.2) g/dL Albumin 3.3 L (3.5-5.0) g/dL Disposition Clinical Impression: Abscess Disposition: HOME SELF-CARE Condition: Good Instructions: Abscess (ED) Additional Instructions: Please follow-up with your specialist tomorrow with her scheduled appointment. Please return here to the emergency room for new concerns. Is patient prescribed a controlled substance at d/c from ED?: No Referrals: Luke Rosado DO [Primary Care Provider] - 1-2 days Time of Disposition: 21:03
[2017-12-04 19:48] LABS: Basophils % (A) 0 %; Eosinophils # (A) 0.1 k/uL (0-0.7); Eosinophils % (A) 1 %; HCT 33.2 % (39.0-53.0); HGB 11.2 gm/dL (13.0-17.5); Lymphocytes # (A) 1.3 k/uL (1.0-4.8); Lymphocytes % (A) 11 %; MCH 27.2 pg (25.0-35.0); MCHC 33.8 g/dL (31.0-37.0); MCV 80.7 fL (80.0-100.0); Mean Platelet Volume 7.4; Monocytes # (A) 0.7 k/uL (0-1.0); Monocytes % (A) 6 %; Neutrophils # (A) 9.7 k/uL (1.3-7.7); Neutrophils % (A) 81 %; RBC 4.11 m/uL (4.30-5.90); RDW 13.3 % (11.5-15.5)
[2017-12-04 19:55] LABS: ALT 31 U/L (21-72); AST 20 U/L (17-59); Albumin 3.3 g/dL (3.5-5.0); Alkaline Phosphatase 103 U/L (38-126); Anion Gap 13 mmol/L; Blood Urea Nitrogen 12 mg/dL (9-20); Calcium 8.7 mg/dL (8.4-10.2); Carbon Dioxide 23 mmol/L (22-30); Chloride 97 mmol/L (98-107); Glucose 243 mg/dL (74-99); Sodium 133 mmol/L (137-145); Total Bilirubin 0.4 mg/dL (0.2-1.3); Total Protein 6.1 g/dL (6.3-8.2)
[2017-12-04 19:56] LABS: Platelet Count 334 k/uL (150-450)
[2017-12-04 21:28] VITALS: BP 112/64; PULSE 82; TEMP 98.6
== END 2017-12-04 21:29 | disposition home or self-care (01) ==
LOC: EC 17:56
DX: T81.4XXA Infection following a procedure, initial encounter (principal); L02.211 Cutaneous abscess of abdominal wall; E78.5 Hyperlipidemia, unspecified; I10 Essential (primary) hypertension; E11.9 Type 2 diabetes mellitus without complications; F32.9 Major depressive disorder, single episode, unspecified; F41.9 Anxiety disorder, unspecified; F10.20 Alcohol dependence, uncomplicated; Z87.891 Personal history of nicotine dependence; Z79.1 Long term (current) use of non-steroidal anti-inflammatories (NSAID); Z79.4 Long term (current) use of insulin; Z79.899 Other long term (current) drug therapy; Z88.0 Allergy status to penicillin; Z90.49 Acquired absence of other specified parts of digestive tract
CPT/HCPCS: 36415; 80053; 85025; 87040; 99283

== ENCOUNTER 2018-05-11 19:00 | Emergency (ER) | payer OTHER ==
--- NOTE | 2018-05-11 19:41 | ED ---
General Adult HPI - General Chief complaint: Recheck/Abnormal Lab/Rx Stated complaint: POSS OVERDOSE ON INSULIN PUMP APX 30 MIN AGO Time Seen by Provider: 05/11/18 19:14 Source: patient Mode of arrival: ambulatory Limitations: no limitations - History of Present Illness Initial comments: Patient is a 32-year-old male presenting for insulin pump malfunction. He states that approximately 6:30 PM, he was adjusting his pump and somehow, the pump injected 300 units of Humalog. He states that since that time, he is not had any symptoms including chest pain, shortness breath, nausea/vomiting/ diarrhea, lightheadedness, fatigue and states that his blood sugars currently measuring over 470 so he thinks it is not kicked in. - Related Data Home Medications Medication Instructions Recorded Confirmed Fenofibrate Nanocrystallized 145 mg PO HS 03/21/17 05/11/18 [Tricor] Citalopram Hydrobromide [CeleXA] 20 mg PO HS 06/01/17 05/11/18 LORazepam [Ativan] 1 mg PO DAILY PRN 07/05/17 05/11/18 Carvedilol [Coreg] 6.25 mg PO HS 08/18/17 05/11/18 Disulfiram 250 mg PO HS 08/18/17 05/11/18 Famotidine [Pepcid] 20 mg PO BID PRN 08/18/17 05/11/18 Folic Acid 1 mg PO HS 08/18/17 05/11/18 traZODone HCL 50 mg PO HS 08/18/17 05/11/18 Gabapentin [Neurontin] 600 mg PO TID 12/04/17 05/11/18 HYDROcodone/APAP 5-325MG [[place] 1 tab PO BID PRN 05/11/18 05/11/18 5-325] INSULIN LISPRO (For Pump) [humaLOG 0.01 units SQ-PUMP CONTINUOUS 05/11/18 (For Pump)] Methocarbamol [Robaxin] 500 mg PO QID 05/11/18 05/11/18 Allergies Allergy/AdvReac Type Severity Reaction Status Date / Time Penicillins Allergy Rash/Hives Verified 05/11/18 19:22 Review of Systems ROS Statement: Those systems with pertinent positive or pertinent negative responses have been documented in the HPI. Constitutional: Negative for chills, fatigue and fever. HENT: Negative for congestion. Respiratory: Negative for chest tightness, shortness of breath and wheezing. Negative for cough Cardiovascular: Negative for chest pain and palpitations. Gastrointestinal: Negative for abdominal pain. Negative for abdominal distention , diarrhea, nausea and vomiting. Genitourinary: Negative for dysuria. Musculoskeletal: Negative for back pain, neck pain and neck stiffness. Skin: Negative for color change. Neurological: Negative for dizziness, speech difficulty, weakness and light- headedness. Psychiatric/Behavioral: Negative for agitation and confusion. Negative for anxiety ROS Other: All systems not noted in ROS Statement are negative. Past Medical History Past Medical History: Diabetes Mellitus, GERD/Reflux, Hyperlipidemia, Hypertension Additional Past Medical History / Comment(s): Pt recently admitted to [facility] on with acute alcoholic pancreatitis, acute alcohol hepatitis, acute renal failure. Other hx: Alcoholism, diabetes mellitus, pancreatitis, hyperlipidemia, hypertension, GE reflux, pancreatic cyst History of Any Multi-Drug Resistant Organisms: None Reported Past Surgical History: Cholecystectomy Additional Past Surgical History / Comment(s): Jaw surgery as child, wisdom teeth extraction, Drainage of a pseudocyst on pancreas Past Anesthesia/Blood Transfusion Reactions: No Reported Reaction Past Psychological History: Anxiety, Depression Smoking Status: Former smoker Past Alcohol Use History: None Reported, Daily, Heavy, Heavy Past Drug Use History: None Reported - Past Family History Father Family Medical History: No Reported History, Diabetes Mellitus Mother Family Medical History: No Reported History Additional Family Medical History / Comment(s): Mother is healthy General Exam - General Exam Comments Initial Comments: Constitutional: Pt is oriented to person, place, and time. Pt appears well- developed and well-nourished. No distress. HENT: Head: Normocephalic and atraumatic. Eyes: EOM are normal. Neck: Normal range of motion. Neck supple. Cardiovascular: Normal rate, regular rhythm, S1 normal, S2 normal and normal heart sounds. Exam reveals no gallop and no friction rub. No murmur heard. Pulmonary/Chest: Effort normal and breath sounds normal. No tachypnea and no bradypnea. No respiratory distress. No wheezes or rales noted. Abdominal: Soft. Bowel sounds are normal. Pt exhibits no shifting dullness, no distension, no pulsatile liver, no fluid wave, no abdominal bruit and no ascites. There is no tenderness. There is no rigidity, no rebound, no guarding, no tenderness at McBurney's point and negative Boss's sign. Musculoskeletal: Normal range of motion. Neurological: Pt is alert and oriented to person, place, and time. No cranial nerve deficit. Skin: Skin is warm and dry. No rash noted. Pt is not diaphoretic. No erythema. No pallor. Psychiatric: Pt has a normal mood and affect. Pt behavior is normal. Thought content normal. Limitations: no limitations Course Vital Signs 05/11/18 05/11/18 19:07 21:37 Temperature 98.2 F Pulse Rate 99 72 Respiratory 20 18 Rate Blood Pressure 124/82 128/85 O2 Sat by Pulse 95 95 Oximetry - Reevaluation(s) Reevaluation #1: 05/11/18 23:05 Patient's blood glucose level has been checked every 30 minutes and it is trending downwards but continues to remain stable. Considering the half-life of she will, it is not suspected that the 300 units of insulin truly was subcutaneous. Nonetheless, the patient will continue to be observed. There is also no evidence of DKA. Reevaluation #2: 05/12/18 00:25 Patient's blood glucose is noted to be going up and therefore it is suspected that the insulin that he injected originally has now worn off Medical Decision Making - Medical Decision Making Patient was observed in the emergency department for greater than 4 hours and his blood sugar was noted to be decreasing to the high 200s but then eventually started going up and therefore it was thought that the effect of the original injected insulin was complete and considering the duration of action for the insulin he injected, that he was out of the dangers. Where he would have significant hypoglycemia. Because of this, it was thought that the patient could be safely discharged and this was extensively discussed with the patient and he agreed. At the time of disposition, patient wasbe resting bed comfortably in no acute distress and he stated that he was switched to subQ sliding scale insulin until he called the pump manufacture make sure that it was not malfunctioning. - Lab Data Result diagrams: 05/11/18 19:44 05/11/18 19:44 Lab Results 05/11/18 05/11/18 05/11/18 Range/Units 19:43 19:44 19:44 WBC 6.7 (3.8-10.6) k/uL RBC 5.08 (4.30-5.90) m/uL Hgb 14.4 (13.0-17.5) gm/dL Hct 42.2 (39.0-53.0) % MCV 83.2 (80.0-100.0) fL MCH 28.4 (25.0-35.0) pg MCHC 34.2 (31.0-37.0) g/dL RDW 14.2 (11.5-15.5) % Plt Count 125 L (150-450) k/uL Neutrophils % 68 % Lymphocytes % 23 % Monocytes % 5 % Eosinophils % 2 % Basophils % 0 % Neutrophils # 4.6 (1.3-7.7) k/uL Lymphocytes # 1.6 (1.0-4.8) k/uL Monocytes # 0.3 (0-1.0) k/uL Eosinophils # 0.1 (0-0.7) k/uL Basophils # 0.0 (0-0.2) k/uL Sodium 137 (137-145) mmol/L Potassium 4.6 (3.5-5.1) mmol/L Chloride 103 (98-107) mmol/L Carbon Dioxide 21 L (22-30) mmol/L Anion Gap 13 mmol/L BUN 18 (9-20) mg/dL Creatinine 0.96 (0.66-1.25) mg/dL Est GFR (CKD-EPI)AfAm >90 (>60 ml/min/1.73 sqM) Est GFR (CKD-EPI)NonAf >90 (>60 ml/min/1.73 sqM) Glucose 484 H (74-99) mg/dL POC Glucose (mg/dL) 466 H (75-99) mg/dL POC Glu Plumber Gasfitter ID Elsi Stinson Osmolality 308 H (280-301) mosm/kg Calcium 9.5 (8.4-10.2) mg/dL Magnesium 1.9 (1.6-2.3) mg/dL Total Bilirubin 0.5 (0.2-1.3) mg/dL AST 48 (17-59) U/L ALT 57 (21-72) U/L Alkaline Phosphatase 96 (38-126) U/L Total Protein 6.8 (6.3-8.2) g/dL Albumin 4.1 (3.5-5.0) g/dL Urine Color Urine Appearance (Clear) Urine pH (5.0-8.0) Ur Specific Kiana (1.001-1.035) Urine Protein (Negative) Urine Glucose (UA) (Negative) Urine Ketones (Negative) Urine Blood (Negative) Urine Nitrite (Negative) Urine Bilirubin (Negative) Urine Urobilinogen (<2.0) mg/dL Ur Leukocyte Esterase (Negative) Acetone, Qual Negative (Negative) 05/11/18 05/11/18 05/11/18 Range/Units 20:22 20:34 20:37 WBC (3.8-10.6) k/uL RBC (4.30-5.90) m/uL Hgb (13.0-17.5) gm/dL Hct (39.0-53.0) % MCV (80.0-100.0) fL MCH (25.0-35.0) pg MCHC (31.0-37.0) g/dL RDW (11.5-15.5) % Plt Count (150-450) k/uL Neutrophils % % Lymphocytes % % Monocytes % % Eosinophils % % Basophils % % Neutrophils # (1.3-7.7) k/uL Lymphocytes # (1.0-4.8) k/uL Monocytes # (0-1.0) k/uL Eosinophils # (0-0.7) k/uL Basophils # (0-0.2) k/uL Sodium (137-145) mmol/L Potassium (3.5-5.1) mmol/L Chloride (98-107) mmol/L Carbon Dioxide (22-30) mmol/L Anion Gap mmol/L BUN (9-20) mg/dL Creatinine (0.66-1.25) mg/dL Est GFR (CKD-EPI)AfAm (>60 ml/min/1.73 sqM) Est GFR (CKD-EPI)NonAf (>60 ml/min/1.73 sqM) Glucose (74-99) mg/dL POC Glucose (mg/dL) 411 H 428 H (75-99) mg/dL POC Glu Plumber [employer]itter Heidy Colon Danielle Osmolality (280-301) mosm/kg Calcium (8.4-10.2) mg/dL Magnesium (1.6-2.3) mg/dL Total Bilirubin (0.2-1.3) mg/dL AST (17-59) U/L ALT (21-72) U/L Alkaline Phosphatase (38-126) U/L Total Protein (6.3-8.2) g/dL Albumin (3.5-5.0) g/dL Urine Color Light Yellow Urine Appearance Clear (Clear) Urine pH 5.0 (5.0-8.0) Ur Specific Kiana 1.026 (1.001-1.035) Urine Protein Negative (Negative) Urine Glucose (UA) 4+ H (Negative) Urine Ketones Negative (Negative) Urine Blood Negative (Negative) Urine Nitrite Negative (Negative) Urine Bilirubin Negative (Negative) Urine Urobilinogen <2.0 (<2.0) mg/dL Ur Leukocyte Esterase Negative (Negative) Acetone, Qual (Negative) 05/11/18 05/11/18 05/11/18 Range/Units 21:18 21:58 22:31 WBC (3.8-10.6) k/uL RBC (4.30-5.90) m/uL Hgb (13.0-17.5) gm/dL Hct (39.0-53.0) % MCV (80.0-100.0) fL MCH (25.0-35.0) pg MCHC (31.0-37.0) g/dL RDW (11.5-15.5) % Plt Count (150-450) k/uL Neutrophils % % Lymphocytes % % Monocytes % % Eosinophils % % Basophils % % Neutrophils # (1.3-7.7) k/uL Lymphocytes # (1.0-4.8) k/uL Monocytes # (0-1.0) k/uL Eosinophils # (0-0.7) k/uL Basophils # (0-0.2) k/uL Sodium (137-145) mmol/L Potassium (3.5-5.1) mmol/L Chloride (98-107) mmol/L Carbon Dioxide (22-30) mmol/L Anion Gap mmol/L BUN (9-20) mg/dL Creatinine (0.66-1.25) mg/dL Est GFR (CKD-EPI)AfAm (>60 ml/min/1.73 sqM) Est GFR (CKD-EPI)NonAf (>60 ml/min/1.73 sqM) Glucose (74-99) mg/dL POC Glucose (mg/dL) 372 H 318 H 293 H (75-99) mg/dL POC Glu Plumber Gasfitter ID Viki Johnson Tammy Osmolality (280-301) mosm/kg Calcium (8.4-10.2) mg/dL Magnesium (1.6-2.3) mg/dL Total Bilirubin (0.2-1.3) mg/dL AST (17-59) U/L ALT (21-72) U/L Alkaline Phosphatase (38-126) U/L Total Protein (6.3-8.2) g/dL Albumin (3.5-5.0) g/dL Urine Color Urine Appearance (Clear) Urine pH (5.0-8.0) Ur Specific Kiana (1.001-1.035) Urine Protein (Negative) Urine Glucose (UA) (Negative) Urine Ketones (Negative) Urine Blood (Negative) Urine Nitrite (Negative) Urine Bilirubin (Negative) Urine Urobilinogen (<2.0) mg/dL Ur Leukocyte Esterase (Negative) Acetone, Qual (Negative) 05/11/18 05/11/18 Range/Units 23:15 23:56 WBC (3.8-10.6) k/uL RBC (4.30-5.90) m/uL Hgb (13.0-17.5) gm/dL Hct (39.0-53.0) % MCV (80.0-100.0) fL MCH (25.0-35.0) pg MCHC (31.0-37.0) g/dL RDW (11.5-15.5) % Plt Count (150-450) k/uL Neutrophils % % Lymphocytes % % Monocytes % % Eosinophils % % Basophils % % Neutrophils # (1.3-7.7) k/uL Lymphocytes # (1.0-4.8) k/uL Monocytes # (0-1.0) k/uL Eosinophils # (0-0.7) k/uL Basophils # (0-0.2) k/uL Sodium (137-145) mmol/L Potassium (3.5-5.1) mmol/L Chloride (98-107) mmol/L Carbon Dioxide (22-30) mmol/L Anion Gap mmol/L BUN (9-20) mg/dL Creatinine (0.66-1.25) mg/dL Est GFR (CKD-EPI)AfAm (>60 ml/min/1.73 sqM) Est GFR (CKD-EPI)NonAf (>60 ml/min/1.73 sqM) Glucose (74-99) mg/dL POC Glucose (mg/dL) 265 H 313 H (75-99) mg/dL POC Glu Plumber Gasfitter ID Nayeli Arellano Calla Osmolality (280-301) mosm/kg Calcium (8.4-10.2) mg/dL Magnesium (1.6-2.3) mg/dL Total Bilirubin (0.2-1.3) mg/dL AST (17-59) U/L ALT (21-72) U/L Alkaline Phosphatase (38-126) U/L Total Protein (6.3-8.2) g/dL Albumin (3.5-5.0) g/dL Urine Color Urine Appearance (Clear) Urine pH (5.0-8.0) Ur Specific Kiana (1.001-1.035) Urine Protein (Negative) Urine Glucose (UA) (Negative) Urine Ketones (Negative) Urine Blood (Negative) Urine Nitrite (Negative) Urine Bilirubin (Negative) Urine Urobilinogen (<2.0) mg/dL Ur Leukocyte Esterase (Negative) Acetone, Qual (Negative) Disposition Clinical Impression: Hyperglycemia Disposition: HOME SELF-CARE Condition: Good Is patient prescribed a controlled substance at d/c from ED?: No Referrals: Luke Rosado DO [Primary Care Provider] - 1-2 days Time of Disposition: 00:27
[2018-05-11 19:47] LABS: Glucose,Whole Blood 466 mg/dL (75-99)
[2018-05-11 19:55] LABS: Basophils % (A) 0 %; Eosinophils # (A) 0.1 k/uL (0-0.7); Eosinophils % (A) 2 %; HCT 42.2 % (39.0-53.0); HGB 14.4 gm/dL (13.0-17.5); Lymphocytes # (A) 1.6 k/uL (1.0-4.8); Lymphocytes % (A) 23 %; MCH 28.4 pg (25.0-35.0); MCHC 34.2 g/dL (31.0-37.0); MCV 83.2 fL (80.0-100.0); Mean Platelet Volume 8.2; Monocytes # (A) 0.3 k/uL (0-1.0); Monocytes % (A) 5 %; Neutrophils # (A) 4.6 k/uL (1.3-7.7); Neutrophils % (A) 68 %; Platelet Count 125 k/uL (150-450); RBC 5.08 m/uL (4.30-5.90); RDW 14.2 % (11.5-15.5); WBC 6.7 k/uL (3.8-10.6)
[2018-05-11 20:07] LABS: ALT 57 U/L (21-72); AST 48 U/L (17-59); Albumin 4.1 g/dL (3.5-5.0); Alkaline Phosphatase 96 U/L (38-126); Anion Gap 13 mmol/L; Blood Urea Nitrogen 18 mg/dL (9-20); Calcium 9.5 mg/dL (8.4-10.2); Carbon Dioxide 21 mmol/L (22-30); Chloride 103 mmol/L (98-107); Glucose 484 mg/dL (74-99); Magnesium 1.9 mg/dL (1.6-2.3); Potassium 4.6 mmol/L (3.5-5.1); Sodium 137 mmol/L (137-145); Total Bilirubin 0.5 mg/dL (0.2-1.3); Total Protein 6.8 g/dL (6.3-8.2)
[2018-05-11 20:24] LABS: Glucose,Whole Blood 411 mg/dL (75-99)
[2018-05-11 20:36] LABS: Glucose,Whole Blood 428 mg/dL (75-99)
[2018-05-11 20:54] LABS: Appearance,Urine Clear (Clear); Bilirubin,Urine Negative (Negative); Blood,Urine Negative (Negative); Color,Urine Light Yellow; Glucose,Urine (UA) 4+ (Negative); Ketones,Urine Negative (Negative); Leukocyte Esterase,Urine Negative (Negative); Nitrite,Urine Negative (Negative); Protein,Urine Negative (Negative); Specific Gravity,Urine 1.026 (1.001-1.035); Urobilinogen,Urine <2.0 mg/dL (<2.0)
[2018-05-11 21:23] LABS: Glucose,Whole Blood 372 mg/dL (75-99)
[2018-05-11 21:45] VITALS: RESP 18
[2018-05-11 22:00] LABS: Glucose,Whole Blood 318 mg/dL (75-99)
[2018-05-11 22:36] LABS: Glucose,Whole Blood 293 mg/dL (75-99)
[2018-05-11 23:18] LABS: Glucose,Whole Blood 265 mg/dL (75-99)
[2018-05-12 00:11] LABS: Glucose,Whole Blood 313 mg/dL (75-99)
[2018-05-12 00:41] VITALS: BP 125/83; PULSE 85; TEMP 97
== END 2018-05-12 00:40 | disposition home or self-care (01) ==
LOC: EC 19:00
DX: E11.65 Type 2 diabetes mellitus with hyperglycemia (principal); E78.5 Hyperlipidemia, unspecified; I10 Essential (primary) hypertension; F41.9 Anxiety disorder, unspecified; F32.9 Major depressive disorder, single episode, unspecified; Z87.891 Personal history of nicotine dependence; Z83.3 Family history of diabetes mellitus; Z79.4 Long term (current) use of insulin; Z79.899 Other long term (current) drug therapy; Z88.0 Allergy status to penicillin
CPT/HCPCS: 36415; 80053; 81003; 82009; 83735; 83930; 85025; 99283

== ENCOUNTER → 2018-06-05 | Outpatient (CLI) | payer OTHER ==
[2018-06-05 14:11] LABS: Blood Urea Nitrogen 15 mg/dL (9-20)
--- NOTE | 2018-06-05 16:00 | CT ---
EXAMINATION TYPE: CT abdomen w con DATE OF EXAM: 06/05/2018 COMPARISON: 11/24/2017 HISTORY: 32-year-old male recurrence of pancreatic cyst and history of pancreatic necrosis. TECHNIQUE: Contiguous axial scanning of the abdomen following administration of 100 ml [id number] c ontrast. Arterial and portal venous phase imaging was obtained and coronal/sagittal reconstructions p [id number] DLP: 1018 mGycm Automated exposure control for dose reduction was used. FINDINGS: Heart normal size without pericardial effusion. Lung bases clear without pleural effusion. Tiny subcentimeter hypodensity at the right hepatic dome to small for accurate CT characterization, p robable tiny cyst. There are some arterialized collateral vessels in the region of the lesser sac/gastrohepatic ligament region which entered the portal venous circulation at the level of the left portal vein. Additional arterialized collateral vessels are present along the left lateral gastric body/fundus and left oment um. Cholecystectomy clips are present. There is moderate focal narrowing at the upper SMV without occlusion. Redemonstrated is severe atrophy of the pancreas with minimal strandy tissue. The large pancreatic fluid collection has essentially resolved with minimal 2.0 cm area of fluid dens ity located below the level of the proximal pancreatic body, refer to coronal image 42. There is some pulling in and distortion of the mesentery at the level of the lower splenic hilum and splenic flexure, axial images 30 and 31 with poorly defined splenic vasculature in this region. The s plenic vein itself is not well seen. Circumaortic left renal vein. Prominent fluid-filled small bowel loops throughout the abdomen. Scattered nonenlarged and borderline size mesenteric lymph nodes measuring up to 6 mm. Scattered mild to moderate stool without pericolic inflammatory change. Adrenal glands, kidneys within normal limits. Spleen mildly enlarged at 14.1 cm. Bones: No osseous destructive process. IM SSION: 1. Sequela of pancreatic necrosis with severe atrophy of the pancreas. The previous pancreatic fluid collection has largely resolved with only a small amount of residual 2 cm fluid located below the pro ximal gastric body. 2. Extensive arterialized collaterals in the region of the lesser sac/gastrohepatic ligament, around the gastric fundus/body, and along the left omentum. The collaterals make their way into the hepatic portal venous system via drainage into the left portal vein. Given the arterialized flow, arterial po rtal fistula is suggested. This could potentially result in portal venous hypertension. 3. Abnormal pulling in and distortion of the mesentery at the level of the inferior splenic hilum and splenic flexure with some poorly defined vascularity in this region and nonvisualization of the sple gloria vein. The distortion suggests postinflammatory scarring and this may be the origin of the arteria l portal communication. 4. Focal moderate stenosis of the upper SMV without occlusion.
== END | disposition home or self-care (01) ==
LOC: RADCTMAIN 13:18
PROVIDERS: ATTEND Surgery
DX: K86.89 Other specified diseases of pancreas (principal); I87.1 Compression of vein
CPT/HCPCS: 82565; 84520; 74160; 36415; Q9967

== ENCOUNTER → 2019-03-30 | Outpatient (CLI) | payer OTHER ==
--- NOTE | 2019-03-30 21:41 | MR ---
MRI CERVICAL and thoracic spine: CLINICAL HISTORY: M 54.2, M 54.6 chronic pain TECHNIQUE: Multiplanar, multisequence imaging of the cervical spine and thoracic spine is performed w ithout contrast. COMPARISON: None FINDINGS: Cervical spine: Sagittal images of the cervical spine show the craniocervical junction to appear with in normal limits. The cervical and upper thoracic spinal cord is normal in course, caliber, and sign al. Vertebral alignment is anatomic. The disc space is mildly reduced in height and signal at C4-5, C6-7 compatible with disc desiccation and degenerative disc disease. Cervical cord signal is normal. The bone marrow signal intensity is within normal limits. Axial images show uncovertebral joint hypertrophy at C4-5 and C6-7 causing mild foraminal encroachmen t at C4-5 and greater at C6-7 bilaterally. Posterior broad-based disc bulges at these levels causes m inimal anterior mass effect on the thecal sac. Remaining levels are normal. IMPRESSION: Mild degenerative disc disease, foraminal encroachment as described. Thoracic spine MRI: There is a spinal curvature present. Thoracic vertebral bodies show preserved hei ght, alignment, and bone marrow signal. There is no significant spinal stenosis, neural foraminal enc roachment, or evident disc herniation. Disc spaces are maintained with exception of T5-6 where there is some loss of disc signal, minimal posterior disc bulge. Thoracic cord signal is normal. IMPRESSION: No significant disc herniation. Minimal degenerative disc disease T5-6. Mild spinal curva ture.
== END | disposition home or self-care (01) ==
LOC: RADMRIMAIN 14:31
PROVIDERS: ATTEND Physician Assistant Medical
DX: M51.34 Other intervertebral disc degeneration, thoracic region (principal); M43.8X4 Other specified deforming dorsopathies, thoracic region
CPT/HCPCS: 72141; 72146

== ENCOUNTER → 2019-08-27 | Outpatient (CLI) | payer OTHER ==
[2019-08-27 16:38] LABS: African American GFR (CKD) >90 (>60 ml/min/1.73 sqM); Blood Urea Nitrogen 20 mg/dL (9-20); Non-African American GFR(CKD) >90 (>60 ml/min/1.73 sqM)
--- NOTE | 2019-08-28 08:02 | CT ---
EXAMINATION TYPE: CT abdomen pelvis w con DATE OF EXAM: 08/27/2019 COMPARISON: CT abdomen June 05, 2018 and older studies. HISTORY: Generalized abdomen pain. Hx pancreatitis CT DLP: 1134.80 mGycm, Automated Exposure Control for Dose Reduction was Utilized. CONTRAST: CT scan of the abdomen and pelvis is performed with oral and with IV Contrast, patient injected with 100 mL of Isovue 300. Nonpancreatic protocol. FINDINGS: LUNG BASES: No significant abnormality is appreciated. LIVER/GB: Cholecystectomy clips are redemonstrated. Main portal vein remains patent and nondilated co faina image 49. PANCREAS: Fairly severe diffuse fat replaced atrophy with poor visualization of normal pancreas on cu rrent study. Not significant changed from most recent CT June 05, 2018. Prominent collateral vess els at this level are redemonstrated. SPLEEN: Poor visualization of splenic vein similar to prior ADRENALS: No significant abnormality is seen. KIDNEYS: Circumaortic left renal vein which is normal variant redemonstrated. BOWEL: Oral contrast has not reached terminal ileum making evaluation of distal bowel slightly subopt imal. No suspicious small or large bowel dilatation. PROSTATE/SEMINAL VESICLES: No gross abnormality seen. LYMPH NODES: No greater than 1cm abdominal or pelvic lymph nodes are appreciated. OSSEOUS STRUCTURES: No significant abnormality is seen. OTHER: Small fat-containing ventral wall hernia axial image 33. Small fat-containing umbilical hernia inferior to this. IMPRESSION: Severe pancreatic atrophy redemonstrated. No new ill-defined or well-formed fluid collect ion at level of the pancreatic bed. Evidence of significant midabdominal prior information again seen . No obvious new acute findings seen to account for patient's symptoms of recurrent abdominal pain.
== END | disposition home or self-care (01) ==
LOC: RADCTMAIN 15:27
PROVIDERS: ATTEND Surgery
DX: K86.89 Other specified diseases of pancreas (principal); K86.0 Alcohol-induced chronic pancreatitis
CPT/HCPCS: 82565; 84520; 74177; 36415; Q9967

== ENCOUNTER → 2020-04-07 | Outpatient (CLI) | payer OTHER ==
--- NOTE | 2020-04-07 14:11 | CONS ---
CONSULTATION DATE OF SERVICE: 04/07/2020 A 34-year-old gentleman who has been evaluated in the Sleep Center for possible obstructive sleep apnea-hypopnea syndrome and insomnia. HISTORY OF PRESENT ILLNESS/SLEEP-WAKE EVALUATION: Patient's usual sleep schedule from 10 - 11 p.m. until 7 or 8 a.m. on weekdays and from midnight until 8 or 9 a.m. on weekends. Sometimes he has problems with falling asleep, but not more than for 30 minutes. No TV in bedroom. He sleeps on the side position. According to his , he snores and wakes up from sleep once with nocturia. Positive history of restless legs. According to patient, rarely he may have starting seeing dreams propped up right after falling asleep. Possible hypnagogic hallucinations. In the morning, patient wakes up tired, falling asleep during the day, has problems with memory, concentration, depression and anxiety. [place] Sleepiness Scale is in very high range of 18. PAST MEDICAL HISTORY: Positive for acid reflux, anxiety, depression, back pain. chronic pancreatitis, diabetes mellitus, hypertension. PAST SURGICAL HISTORY: Status post surgery for pancreatic cyst in 2018. MEDICATIONS: Carvedilol 3.125 mg once a day, Trazodone 50 mg at bedtime, Celexa 20 mg once a day, oxycodone 5 mg 3 times a day, Robaxin, gabapentin, Ativan, Humalog, naproxen, Tricor, folic acid, Pepcid. FAMILY HISTORY: Heart problems, diabetes. REVIEW OF SYSTEMS: Difficulty with falling asleep, snoring, extreme sleepiness during the day. The patient may take up to 2 naps during the day. PHYSICAL EXAM: gentleman without distress, BP 125/79, HR 91, RR 14, height 109-1/4, weight 201, BMI 29.3, temperature 98.4, oxygen saturation on room air 95%. OROPHARYNX: Moderately low position of soft palate. Mallampati III. NECK: 16-1/4 inch in circumference. LUNGS: Clear to percussion and to auscultation. Good air exchange. No wheezing or rhonchi. HEART: S1, S2 regular. No murmurs, gallops, or rubs. ABDOMEN: Soft and nontender. Bowel sounds are present. No organomegaly appreciated. EXTREMITIES: No clubbing or cyanosis. DRILL PRESS TENDER: Awake, alert, and oriented X3. Cranial nerves 2 to 7 intact. There is no fasciculation or atrophy. noted. No focal deficits observed. IMPRESSION: 1. Snoring, awakenings from sleep with nocturia, significant excessive daytime sleepiness; possible obstructive sleep apnea-hypopnea syndrome. 2. Difficulties to initiate sleep, insomnia. 3. Extreme sleepiness during the day. [place] Sleepiness Scale is in very high range of 18. Patient takes naps up to 2 times a day. DIFFERENTIAL DIAGNOSES: 1. Include narcolepsy. 2. Occasionally positive history of hypnagogic hallucinations. 3. Hypertension. 4. Diabetes mellitus. 5. Anxiety. 6. Depression. 7. Back pain on treatment and pain in the other part of the body. Patient is on multiple pain medications, previously was seen in Pain Clinic. 8. Chronic pancreatitis. 9. Status post surgical treatment of pancreatic cyst. PLAN: 1. Polysomnography for evaluation of patient's breathing during sleep. 2. CPAP/BiPAP titration if sleep study confirms obstructive sleep apnea-hypopnea syndrome. 3. Preferable position during sleep on the side. 4. No driving if patient feels any sleepiness. 5. I will see patient for follow up visit to explain results of testing and following plan. 6. If sleep study will be negative for obstructive sleep apnea-hypopnea syndrome. Patient is a candidate for multiple sleep latency test. The differential diagnosis with narcolepsy. Thank you very much for referring this patient for consultation. Sincerely, Norberto Mason MD, PhD, FAASM Diplomat of [employer] Director Of Labor And Delivery of [facility] [place] MMODL / IJN: [id number] /
== END | disposition home or self-care (01) ==
LOC: SLEEP 11:38
PROVIDERS: ATTEND Internal Medicine
DX: G47.00 Insomnia, unspecified (principal); R35.1 Nocturia; I10 Essential (primary) hypertension; E11.9 Type 2 diabetes mellitus without complications; F41.9 Anxiety disorder, unspecified; F32.9 Major depressive disorder, single episode, unspecified; M54.9 Dorsalgia, unspecified; Z79.891 Long term (current) use of opiate analgesic; Z79.899 Other long term (current) drug therapy; Z79.4 Long term (current) use of insulin
CPT/HCPCS: 99211

== ENCOUNTER → 2020-07-28 | Outpatient (CLI) | payer OTHER ==
--- NOTE | 2020-07-28 20:54 | SFUN ---
SLEEP CENTER FOLLOW UP NOTE DATE OF SERVICE: 07/28/2020 This patient is a 35-year-old gentleman who has been followed in Sleep Center. He came in to discuss results of the sleep study and following plan. Recently the patient had a polysomnogram for evaluation of his breathing and any leg movements during the sleep. No abnormalities of respiration have been documented. Normal oxygenation during the sleep. No significant periodic limb movements during the sleep study. At the same time, the patient continues to feel significantly sleepy. [place] Sleepiness Scale today is 18. During the previous visit it was also 18. Occasionally the patient has history of hypnagogic hallucinations. No history of cataplexy. This is with his normal regimen of sleep, around 8 hours per night. MEDICATIONS: Carvedilol, trazodone, Celexa, oxycodone, Robaxin, gabapentin, Ativan, Humalog, naproxen, TriCor, Pepcid. PHYSICAL EXAMINATION: GENERAL: A pleasant patient in no distress. VITAL SIGNS: BP 123/76, HR 89, RR 18, oxygen saturation at room air 92%. Height 5 feet 9 inches, weight 202.4, temperature 98.7. HEENT: PERRLA, EOMI. Evaluation of oropharynx showed tongue protrudes midline. Moderately low position of soft palate. Mallampati III. NECK: Supple. No JVD. Thyroid is not palpable. LUNGS: Clear to percussion and to auscultation. Good air exchange. No wheezing or rhonchi. HEART: S1, S2 regular. No murmurs, gallops or rubs. ABDOMEN: Soft and nontender. Bowel sounds are present. No organomegaly appreciated. EXTREMITIES: No clubbing or cyanosis. EXTENSION PROFESSOR: Awake, alert, and oriented X3. Cranial nerves 2 to 7 intact. There is no fasciculation or atrophy. noted. No focal deficits observed. IMPRESSION: 1. No significant respiratory abnormalities have been documented during the sleep study. 2. No significant periodic limb movements have been documented during the sleep study. 3. The patient continues to feel sleepy during the day with a very high level of Solomon Sleepiness Scale. Differential diagnosis includes narcolepsy without cataplexy, positive history of hypnagogic hallucinations. 4. Hypertension. 5. Diabetes mellitus. 6. Anxiety. 7. Depression. 8. Back pain; patient on treatment with multiple pain medications. 9. History of chronic pancreatitis. PLAN: 1. Polysomnogram with a following multiple sleep latency test for objective evaluation of patient's symptoms of excessive daytime sleepiness. 2. Sleep hygiene with regular time in bed for 8 hours. 3. No driving if feeling sleepiness. Thank you very much for allowing me to participate in the management of your patient. Sincerely, Norberto Mason MD, PhD, FAASM Diplomat of [employer] Tile Decorator of [facility] [place] MMODL / WILLN: [id number] /
== END | disposition home or self-care (01) ==
LOC: SLEEP 15:59
PROVIDERS: ATTEND Internal Medicine
DX: G47.9 Sleep disorder, unspecified (principal); I10 Essential (primary) hypertension; E11.9 Type 2 diabetes mellitus without complications; F41.9 Anxiety disorder, unspecified; F32.9 Major depressive disorder, single episode, unspecified; M54.9 Dorsalgia, unspecified; Z87.19 Personal history of other diseases of the digestive system; Z79.899 Other long term (current) drug therapy; Z79.4 Long term (current) use of insulin

== ENCOUNTER → 2020-09-28 | Outpatient (CLI) | payer OTHER ==
--- NOTE | 2020-09-28 11:40 | SFUN ---
SLEEP CENTER FOLLOW UP NOTE DATE OF SERVICE: 09/28/2020 This 35-year-old gentleman had been followed in Sleep Center to discuss results of sleep studies and following plan. The patient continues to complain on daytime sleepiness. [place] Sleepiness Scale increased to 19. I discussed results of sleep studies with patient in details. Polysomnogram did not show any significant respiratory abnormalities. Total apnea-hypopnea index 4.1 with a lowest oxygen level of 87.7, total amount of periodic limb movements 9.2 times per hour. The patient had a little bit more periodic limb movements at the end of the night and possibly have some leg movements also, in REM sleep. The patient had all stages of sleep through the night including delta sleep and 2 periods of REM sleep. Multiple sleep latency test on the following day did not show significant sleepiness. Patient fell asleep once on 5 naps. MEDICATIONS: Medications are carvedilol, trazodone, Celexa, oxycodone, Robaxin, gabapentin, Ativan, Humalog, naproxen, TriCor, folic acid, Pepcid. PHYSICAL EXAMINATION: GENERAL: Patient in no distress. VITAL SIGNS: BP 136/83, HR 81, RR 16, oxygen saturation at room air 96%, height 5 feet 9 inches, weight 203. HEENT: PERRLA, EOMI, evaluation of oropharynx showed tongue protrudes midline. NECK: Supple, no JVD. Thyroid is not palpable. LUNGS: Clear to percussion and to auscultation. Good air exchange. No wheezing or rhonchi. HEART: S1, S2 regular. No murmurs, gallops, or rubs. ABDOMEN: Soft and nontender. Bowel sounds are present. No organomegaly appreciated. EXTREMITIES: No clubbing or cyanosis. WHITE METAL CASTER: Awake, alert, and oriented X3. Cranial nerves 2 to 7 intact. There is no fasciculation or atrophy. noted. No focal deficits observed. IMPRESSION: 1. No significant respiratory abnormalities during sleep. Normal oxygenation during the sleep. 2. No significant periodic limb movements have been documented. 3. Normal sleep latency by results of multiple sleep latency test. 4. Some leg movements documented during the REM sleep, which may indicate possibility of REM sleep behavioral disorder. 5. Hypertension. 6. Depression. 7. Anxiety. 8. Back pain. 9. History of chronic pancreatitis. 10.Status post surgical treatment for pancreatic cyst. PLAN: 1. Sleep hygiene with regular time in bed for 8 hours. 2. Extreme precautions related to driving, no driving if feeling sleepiness. The patient does not feel sleepy during the driving according to him. 3. Watching weight. 4. Precautions related to possibility of REM sleep behavioral disorder. No access to the during the night, closed doors, closed windows. 5. I discussed with patient recommendation to follow up in about 6 months to see how he feels, if necessary to repeat the testing for sleepiness, possible sleepiness but again present results did not confirm it. Thank you very much for allowing me to participate in management of your patient. Sincerely, MD Marlon, PhD, FAASM Diplomat of [employer] [employer] Laryngologist of [facility] [place] MMEUGENIO / LEO: [id number] /

== ENCOUNTER → 2022-04-09 | Outpatient (CLI) | payer OTHER ==
--- NOTE | 2022-04-10 06:25 | MR ---
EXAMINATION TYPE: MR lumbar spine wo con DATE OF EXAM: 04/09/2022 COMPARISON: CT abdomen and pelvis August 27, 2019 HISTORY: Low back pain, more on right side. TECHNIQUE: Multiplanar, multisequence imaging of the lumbar spine is performed without IV contrast. FINDINGS: Sagittal images of the lumbar spine show vertebral body heights and alignment to appear sta ble and satisfactory. Disc desiccation L4-L5 level otherwise the discs show normal height and hydrati on. The conus medullaris is normal in position and signal ending inferior L1 level. The bone marrow signal intensity is within normal limits. Axial images show T12-L1 and L1-L2 levels to appear within normal limits. Axial images at L2-L3 level show mild broad disc bulge minimally effaces the anterior thecal sac. Pat ent bilateral neural foramina. Axial images at L3-L4 level appear within normal limits. Axial images at L4-L5 level shows moderate broad-based disc bulge effacing the anterior thecal sac an d causing mild bilateral neural foraminal narrowing. Axial images at L5-S1 level show mild facet arthropathy bilaterally. Spinal canal is preserved. Bilat eral neural foramina are patent. Paraspinal muscle bulk is maintained. IMPRESSION: Mild multilevel degenerative changes in the lumbar spine as detailed above.
== END | disposition home or self-care (01) ==
LOC: RADMRIMAIN 21:30
PROVIDERS: ATTEND Family Medicine
DX: M47.816 Spondylosis without myelopathy or radiculopathy, lumbar region (principal); G62.9 Polyneuropathy, unspecified
CPT/HCPCS: 72148